=== PATIENT | female | born 1945 | race Caucasian/White ===

== ENCOUNTER 2016-11-18 16:29 | Inpatient (IN) | payer OTHER, MEDICARE ==
[2016-11-18] VITALS (8 sets, daily range): BP systolic 107–148; BP diastolic 53–76
[~2016-11-18] VITALS: Ht 162.6 cm; Wt 54.4 kg
[2016-11-18] MEDS ORDERED: PIPERACILLIN /TAZOBACTAM 3.375 G in IV D5W 50 ML IV ONE (17:00)
[2016-11-18] MEDS ORDERED: IV NS 0.9% 1,000 ML BAG IV ONE ×3 (17:00→19:30)
--- NOTE | 2016-11-18 17:00 | NUR ---
AC 12 TV 500 FIO2 40 % PEEP 5 MECH VENT
--- NOTE | 2016-11-18 17:00 | NUR ---
sent by private ems from [facility] for abnormal CXR and wbc count of 12.1. Placed on monitor. VSS. Awaiting md order. 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
--- NOTE | 2016-11-18 17:07 | NUR ---
PT PLACED ON [facility] VENT VIA TRACH SIZE 8 PORTEX CUFFED. VENT SETTINGS BELLOW PER RT TRANSPORTER: AC 12 VT 500 FIO2 40% PEEP +5 BREATH SOUNDS RHONCHI BILATERAL. CIARAN @ BEDSIDE. Addendum: 11/18/16 at 1713 by LOLY STEWART RT Amended: Links added.
[2016-11-18] MEDS ORDERED: MEMA5TAB GT (17:17)
[2016-11-18] MEDS ORDERED: METO25TA6 GT (17:17)
[2016-11-18] MEDS ORDERED: HYDR-3326 GT (17:17)
[2016-11-18] MEDS ORDERED: LEVA1.25 IH ×2 (17:17)
[2016-11-18] MEDS ORDERED: INSU100I19 SQ (17:17)
[2016-11-18] MEDS ORDERED: ASCO500S2 GT (17:17)
[2016-11-18] MEDS ORDERED: ATOR40TA GT (17:17)
[2016-11-18] MEDS ORDERED: MAGN400T26 GT (17:17)
[2016-11-18] MEDS ORDERED: BLOO-668 IN (17:17)
[2016-11-18] MEDS ORDERED: CLON0.1T GT (17:17)
[2016-11-18] MEDS ORDERED: AMIN30LI4 GT (17:17)
[2016-11-18] MEDS ORDERED: NUT.237L30 GT (17:17)
[2016-11-18] MEDS ORDERED: MULT-659 GT (17:17)
[2016-11-18] MEDS ORDERED: FERR300L GT (17:17)
[2016-11-18] MEDS ORDERED: SUCR1ORA GT (17:17)
[2016-11-18] MEDS ORDERED: IPRA0.2S9 IH ×2 (17:17)
[2016-11-18] MEDS ORDERED: DOCU50LI GT (17:17)
[2016-11-18] MEDS ORDERED: LOSA100T15 GT (17:17)
[2016-11-18] MEDS ORDERED: POLY15DR57 EACHEYE (17:17)
[2016-11-18] MEDS ORDERED: HYDR-4077 GT (17:17)
[2016-11-18] MEDS ORDERED: FAMO20TA8 GT (17:17)
[2016-11-18] MEDS ORDERED: ACET650S26 GT ×2 (17:17)
[2016-11-18] MEDS ORDERED: INSU100V3 SQ (17:17)
[2016-11-18] MEDS ORDERED: ZINC220C8 GT (17:17)
[2016-11-18 17:19] LABS: BASOPHILS # (AUTO) 0.1 /CMM (0.0-0.2); BASOPHILS % (AUTO) 0.9 % (0.0-2.0); EOSINOPHILS # (AUTO) 0.8 /CMM (0.0-0.7); EOSINOPHILS % (AUTO) 7.4 % (0.0-6.0); HEMATOCRIT 30 % (33-45); LYMPHOCYTES # (AUTO) 1.2 /CMM (0.8-4.8); LYMPHOCYTES % (AUTO) 11.7 % (20.0-44.0); MEAN CORPUSCULAR HEMOGLOBIN 30 PG (26.0-33.0); MEAN CORPUSCULAR HGB CONC 33 g/dl (31.0-36.0); MEAN CORPUSCULAR VOLUME 89 fL (82-100); MONOCYTES # (AUTO) 0.6 /CMM (0.1-1.30); MONOCYTES % (AUTO) 6.1 % (2.0-12.0); NEUTROPHILS # (AUTO) 7.7 /CMM (1.8-8.9); NEUTROPHILS % (AUTO) 73.9 % (43.0-81.0); PLATELET COUNT (AUTO) 308 /CMM (150-450); RED BLOOD CELL COUNT(AUTO) 3.37 MIL/uL (4.0-5.2); WHITE BLOOD COUNT (AUTO) 10.4 K/uL (4.3-11.0)
[2016-11-18] MEDS ORDERED: BISA10SU8 RC (17:19)
[2016-11-18] MEDS ORDERED: NA P133E RC (17:19)
[2016-11-18] MEDS ORDERED: MAGN400O6 GT (17:19)
[2016-11-18 17:28] LABS: CALCIUM, SERUM 9.1 mg/dL (8.5-10.1); CREATININE 0.6 mg/dL (0.6-1.3); POTASSIUM 3.5 mmol/L (3.5-5.1)
[2016-11-18] MEDS ORDERED: VANCOMYCIN 1 GM in IV D5W 250 ML IV ONE ×2 (17:30→19:30)
[2016-11-18 17:33] LABS: INR 1.09 (0.87-1.13); PROTHROMBIN TIME 11.4 SECS (9.5-12.7)
[2016-11-18 17:34] LABS: ALBUMIN 2.3 g/dL (3.4-5.0); BILIRUBIN,DIRECT 0.1 mg/dL (0.0-0.2); BILIRUBIN,TOTAL 0.4 mg/dL (0.2-1.0); TOTAL PROTEIN, SERUM 6.8 g/dL (6.4-8.2)
[2016-11-18] MEDS ORDERED: IV SET PRIMARY PUMP SET 1 EA INFUS.SET MC ONE ×2 (17:40→21:57)
[2016-11-18] MEDS ORDERED: PIPERACILLIN /TAZOBACTAM 3.375 G VIAL IV ONE (17:40)
[2016-11-18] MEDS ORDERED: IV NS 0.9% 2,000 ML ONE (17:40)
[2016-11-18] MEDS ORDERED: IV SET PRIMARY 1 EA INFUS.SET MC ONE (17:40)
[2016-11-18] MEDS ORDERED: IV NS 0.9% 1,000 ML ONE (17:41)
--- NOTE | 2016-11-18 18:09 | NUR ---
CALLED NURSING SUP. FOR ICU BED
--- NOTE | 2016-11-18 18:47 | NUR ---
WAITING FOR RT, RT IS BUSY. ER WILL CALL WHEN READY.
--- NOTE | 2016-11-18 19:10 | NUR ---
PT TAKEN TO ULTRASOUND VIA LYNN CONLEY AND RN
[2016-11-18] MEDS ORDERED: ONDANSETRON HCL/PF 4 MG/2 ML VIAL IVP PRN ×2 (19:30)
[2016-11-18] MEDS ORDERED: Z GUARD REMEDY 2 OZ OINT TP PRN (19:30)
[2016-11-18] MEDS ORDERED: ACETAMINOPHEN 650 MG/SUPP.RECT RC PRN (19:30)
[2016-11-18] MEDS ORDERED: NOREPINEPHRINE 8 MG in IV D5W 500 ML IV PRN (19:30)
[2016-11-18] MEDS ORDERED: ZOLPIDEM TARTRATE 5 MG TABLET PO PRN (19:30)
[2016-11-18] MEDS ORDERED: MAGNESIUM HYDROXIDE 30 ML UDC PO PRN (19:30)
[2016-11-18] MEDS ORDERED: ACETAMINOPHEN 325 MG TABLET PO PRN (19:30)
[2016-11-18] MEDS ORDERED: HYDROCODONE/APAP 5/325MG 1 EACH TABLET PO PRN (19:30)
[2016-11-18] MEDS ORDERED: MAG HYDROX/AL HYDROX/SIMETH 30 ML UDC PO PRN (19:30)
--- NOTE | 2016-11-18 19:30 | NUR ---
PT RETURNED FROM CT.
--- NOTE | 2016-11-18 19:45 | NUR ---
URINE SAMPLE COLLECTED SENT TO LAB
--- NOTE | 2016-11-18 20:04 | NUR ---
REPORT GIVEN BY RN TOMASA TO ICVU ZOE DANIELLE
--- NOTE | 2016-11-18 20:10 | NUR ---
DR RAMIRES AT BEDSIDE . CHEST TUBE INSERTION.
--- NOTE | 2016-11-18 20:10 | NUR ---
GAVE REPORT TO ICU DR ARTHUR ADMITTING.
--- NOTE | 2016-11-18 20:11 | NUR ---
GAVE REPORT TO GABI FOR HECTOR
[2016-11-18 20:16] LABS: APPEARANCE,URINE Clear (CLEAR); BILIRUBIN,URINE Negative (NEGATIVE); BLOOD, URINE Negative Ery/uL (NEGATIVE); COLOR,URINE Yellow (YELLOW); KETONES,URINE Negative (NEGATIVE); LEUKOCYTE ESTERASE ,URINE Small (NEGATIVE); NITRITE, URINE Negative (NEGATIVE); PH,URINE 5.5 (5.0-8.0); PROTEIN,URINE 30 mg/dl (NEGATIVE); UGLUCOSE Negative (NEGATIVE); UROBILINOGEN,URINE 0.2 EU/dL (0.2)
--- NOTE | 2016-11-18 20:20 | NUR ---
DR. RAMIRES CHEST TUBE WAS NOT PLACED.
[2016-11-18 20:27] LABS: CREATINE KINASE MB 3.7 ng/mL (0-3.6)
[2016-11-18] MEDS ORDERED: MAGNESIUM HYDROXIDE 30 ML UDC GT PRN (20:30)
[2016-11-18] MEDS ORDERED: BISACODYL SUPP (10 MG) 10 MG/SUPP.RECT SUPP.RECT RC PRN (20:30)
[2016-11-18] MEDS ORDERED: IPRATROPIUM NEB FS 0.5 MG/2.5 ML AMPUL.NEB NEB PRN (20:30)
[2016-11-18] MEDS ORDERED: NA PHOS,M-B/NA PHOS,DI-BA 1 EA ENEMA RC PRN (20:30)
[2016-11-18 20:35] LABS: ADD URINE CULTURE YES; BACTERIA,URINE Moderate /HPF (None Seen); RBC,URINE 0-2 /HPF (0-2); SQUAMOUS EPITHELIAL CELL,UR Moderate /HPF (None Seen)
--- NOTE | 2016-11-18 20:42 | NUR ---
[facility] PAGED, DEMOGRAPHER
[2016-11-18 21:03] LABS: ABG BASE EXCESS -3.8 mmol/L; ABG OXYGEN SATURATION 93.8 % (92.0-98.5); ABG PCO2 31.2 mmHg (35.0-45.0); ABG PH 7.423 (7.350-7.450); ABG PO2 80.8 mmHg (75.0-100.0); ABG TOTAL HEMOGLOBIN 9.5 G/dL (12.0-16.0); AaDO2 168.5 mmHg; COHb 0.1 % (0.5-1.5); MetHb 0.6 % (0.0-1.5); O2Hb 93.1 % (94.0-97.0); PEEP,BG 5 cm H2O; VT, ABG 500 mL
[2016-11-18] MEDS ORDERED: FEE PK DOSING 1 MIN EA MC ONE (21:22)
--- NOTE | 2016-11-18 21:28 | NUR ---
PT TRASNFERED PER ACLS PROTOCOL.
[2016-11-18] MEDS ORDERED: POLYVINYL ALCOHOL 15 ML BOTTLE EACHEYE PRN (21:30)
[2016-11-18] MEDS ORDERED: ALBUTEROL FS 2.5 MG/3 ML VIAL.NEB NEB PRN (21:30)
[2016-11-18] MEDS ORDERED: ACETAMINOPHEN 650 MG/20.3 ML UDC GT PRN (22:00)
[2016-11-18] MEDS: ATORVASTATIN 40 MG TABLET GT SCH (22:01)
[2016-11-18] MEDS: methylPREDNISolone SOD SUCC 125 MG/2ML VIAL IV SCH (22:02)
[2016-11-18] MEDS: SUCRALFATE 1 G/10 ML UDC GT SCH (22:02)
[2016-11-18] MEDS: IV NS 0.9% 1,000 ML IV PRN (22:03)
[2016-11-18] MEDS ORDERED: SECONDARY IV SET 1 EA INFUS.SET MC ONE (23:05)
--- NOTE | 2016-11-18 23:06 | NUR ---
LICENSED OCCUPATIONAL THERAPY ASSISTANT. ADMISSION. RECEIVED THE PT FROM ER VIA RNEY. TRACH TO VENT CONNECTED, PORTEX #8, AC 12,TV 500,FIO2 40%,PEEP 5. SAT 98%. SINGING WAITER OR WAITRESS SHOWING NSR. IV RT HAND IVF NS 100ML/H. GT INTACT. RT SIDE WEAKNESS. GT INTACT. BALAJI LOWER EXTREMITY CONTRACTED. LT HAND SOFT WRIST RESTRAINT. PT PULLING GT . HOB ELEVATED. FC INSERTED. WITH OUT DIFFICULT LADONNA AREA EXCORIATION. PICTURE TAKEN. AFEBRILE. WILL CONTINUE TO MONITOR VITALS.
[2016-11-18] MEDS: INSULIN DETEMIR 100 UNIT/ML CARTRIDGE SQ SCH (23:20)
[2016-11-18] MEDS: PIPERACILLIN /TAZOBACTAM 3.375 G in IV D5W 50 ML IV SCH (23:22)
[2016-11-19] VITALS (27 sets, daily range): BP systolic 103–151; BP diastolic 51–84
[2016-11-19] MEDS ORDERED: BLOOD SUGAR DIAGNOSTIC 1 EACH STRIP IN SCH
[2016-11-19] MEDS ORDERED: GLYTROL 1,000 ML BAG ONE (00:10)
[2016-11-19] MEDS: ALBUTEROL FS 2.5 MG/3 ML VIAL.NEB NEB SCH ×4 (01:50→19:54)
[2016-11-19] MEDS: IPRATROPIUM NEB FS 0.5 MG/2.5 ML AMPUL.NEB IH SCH ×4 (01:50→19:54)
[2016-11-19] MEDS: BLOOD SUGAR DIAGNOSTIC 1 EACH STRIP IN SCH ×4 (02:09→17:40)
[2016-11-19] MEDS: GLYTROL 1,000 ML BAG GT SCH (02:11)
--- NOTE | 2016-11-19 04:31 | NUR ---
STEAM SHOVEL OPERATING ENGINEER. AM CARE. ORAL CARE, BED BATH GIVEN. LINEN CHANGED, REMAINING SAME VENT SETTING TOLERATED WELL.SAT 98%. NO ACUTE DISTRESS NOTED. EMT DISPATCHER SHOWING NSR. IV RT HAND IVF NS 100 ML/H. GT FEEDING [id number] WELL. FC PATENT. URINE DRAINING HOB ELEVATED . TURN AND REPOSITION Q2H. WILL CONTINUE TO MONITOR VITALS.
[2016-11-19] MEDS ORDERED: IV SET PRIMARY PUMP SET 1 EA INFUS.SET MC ONE (04:38)
[2016-11-19] MEDS: VANCOMYCIN 0.75 GM in IV D5W 250 ML IV SCH ×2 (04:43→16:58)
[2016-11-19] MEDS: SUCRALFATE 1 G/10 ML UDC GT SCH ×3 (04:43→21:04)
[2016-11-19 05:00] LABS: BASOPHILS % (AUTO) 0.1 % (0.0-2.0); EOSINOPHILS % (AUTO) 0.1 % (0.0-6.0); HEMATOCRIT 30 % (33-45); HEMOGLOBIN 9.9 g/dL (11.5-14.8); LYMPHOCYTES # (AUTO) 0.3 /CMM (0.8-4.8); LYMPHOCYTES % (AUTO) 3.9 % (20.0-44.0); MEAN CORPUSCULAR HEMOGLOBIN 30 PG (26.0-33.0); MEAN CORPUSCULAR HGB CONC 33 g/dl (31.0-36.0); MEAN CORPUSCULAR VOLUME 89 fL (82-100); MONOCYTES % (AUTO) 0.7 % (2.0-12.0); NEUTROPHILS # (AUTO) 6.7 /CMM (1.8-8.9); NEUTROPHILS % (AUTO) 95.2 % (43.0-81.0); PLATELET COUNT (AUTO) 306 /CMM (150-450); RDW COEFFICIENT OF VARIATION 14.7 (11.5-15.0); RED BLOOD CELL COUNT(AUTO) 3.34 MIL/uL (4.0-5.2); WHITE BLOOD COUNT (AUTO) 7.1 K/uL (4.3-11.0)
[2016-11-19 05:23] LABS: ALBUMIN 2.1 g/dL (3.4-5.0); BILIRUBIN,TOTAL 0.5 mg/dL (0.2-1.0); CALCIUM, SERUM 8.7 mg/dL (8.5-10.1); CREATININE 0.4 mg/dL (0.6-1.3); MAGNESIUM 1.9 mg/dL (1.8-2.4); PHOSPHORUS 3.6 mg/dL (2.5-4.9); POTASSIUM 3.8 mmol/L (3.5-5.1); TOTAL PROTEIN, SERUM 6.5 g/dL (6.4-8.2)
[2016-11-19] MEDS: PIPERACILLIN /TAZOBACTAM 3.375 G in IV D5W 50 ML IV SCH ×3 (05:25→17:48)
[2016-11-19] MEDS: INSULIN REGULAR, HUMAN 100 UNIT/ML 3 ML VIAL SQ PRN ×3 (05:25→17:47)
[2016-11-19 05:53] LABS: INR 1.05 (0.87-1.13); PROTHROMBIN TIME 11.3 SECS (9.5-12.7)
[2016-11-19] MEDS ORDERED: PANTOPRAZOLE 40 MG TABLET.DR PO SCH (07:30)
--- NOTE | 2016-11-19 08:00 | NUR ---
EMPLOYMENT COACH Patient on mech vent to trach on FiO2 of 40%. no distress, sat 95%. Vitals signs stable, no drips. Diminished lung sounds, minimal secretions on suction. G-tube feeding continued with no residuals, increased to 40ml/hr, goal rate of 55ml/hr. Contracted lower extremities, left arm on restraints for safety (per client care coordinator RN attempts to pull out trach tube and Peg tube).
[2016-11-19] MEDS: MAGNESIUM OXIDE 400 MG TABLET GT SCH ×2 (09:22→16:57)
[2016-11-19] MEDS: PANTOPRAZOLE 40 MG VIAL IV SCH (09:22)
[2016-11-19] MEDS: MEMANTINE HCL 5 MG TABLET GT SCH (09:22)
[2016-11-19] MEDS: ASPIRIN 81 MG TAB.CHEW PO SCH (09:22)
[2016-11-19] MEDS: DOCUSATE SODIUM LIQ 100 MG/10 ML UDC GT SCH (09:22)
[2016-11-19] MEDS: methylPREDNISolone SOD SUCC 125 MG/2ML VIAL IV SCH ×3 (09:23→16:56)
[2016-11-19] MEDS: ZINC SULFATE 220 MG CAPSULE GT SCH (09:23)
[2016-11-19] MEDS: MULTIVIT, IRON, MIN NO. 8, FA 1 TAB TABLET GT SCH (09:23)
[2016-11-19] MEDS: FERROUS SULFATE UDC 300 MG/5 ML UDC GT SCH ×3 (09:23→16:56)
[2016-11-19] MEDS: PROSOURCE / PROSTAT (PYXIS) 30 ML UDC GT SCH (09:23)
[2016-11-19] MEDS: ASCORBIC ACID SYRUP 500 MG/5 ML UDC GT SCH (09:23)
[2016-11-19] MEDS: IV NS 0.9% 1,000 ML IV PRN (11:12)
[2016-11-19] MEDS: ACETYLCYSTEINE 10% SOLN 400 MG/4 ML VIAL NEB SCH (14:14)
[2016-11-19] MEDS: LACTOBACILLUS RHAMNOSUS GG 1 EACH CAP.SPRINK GT SCH (16:56)
--- NOTE | 2016-11-19 17:30 | NUR ---
FINANCIAL SYSTEMS MANAGER Transferred to [place], vital signs stable. continued current medical management. Endorse to [place] ENRIQUEZ
--- NOTE | 2016-11-19 17:30 | NUR ---
RN NOTES RECEIVED PT FROM ICU, PT TRANSPORTED VIA BED ACCOMPANIED BY RN AND RT. PT TRACHED, ON MECH VENT SETTINGS PRESCRIBED, NO ACUTE DISTRESS NOTED, TELEBOX ATTACHED, NOTED NSR HR 86. VS CHECKED AND RECORDED. KEPT COMFORTABLE. FC PATENT DRAINING YELLOW COLOR URINE, ISOLATION PRECAUTION OBSERVED. ONGOING IVF NS @100ML/HR INFUSING ON BERNARD MIDLINE. SAFETY MAINTAINED, CALL LIGHT WITHIN REACH, WILL CONT TO MONITOR
[2016-11-19] MEDS: ATORVASTATIN 40 MG TABLET GT SCH (21:04)
[2016-11-19] MEDS: INSULIN DETEMIR 100 UNIT/ML CARTRIDGE SQ SCH (21:10)
--- NOTE | 2016-11-19 21:24 | NUR ---
[place] RN NOTES RECEIVED PT AWAKE NONVERBAL ON SKATE MAKER WITH NS 93 HR ,ON VENT AC 12 TV 500PEEP +5FI02 40% , NO RESPIRATORY DISTRESS NOTED OR FACIAL GRIMACING NOTED AT THIS TIME ,CLEAN AND DRY ,WELL REPOSITIONED.
--- NOTE | 2016-11-19 22:00 | NUR ---
[place] RN NOTES ID AT BEDSIDE
[2016-11-20] VITALS: BP 130/68
[2016-11-20] MEDS: PIPERACILLIN /TAZOBACTAM 3.375 G in IV D5W 50 ML IV SCH ×5 (00:27→23:06)
[2016-11-20] MEDS: IV NS 0.9% 1,000 ML IV PRN ×2 (00:28→12:35)
[2016-11-20] MEDS: BLOOD SUGAR DIAGNOSTIC 1 EACH STRIP IN SCH ×5 (00:32→23:06)
[2016-11-20] MEDS: INSULIN REGULAR, HUMAN 100 UNIT/ML 3 ML VIAL SQ PRN ×5 (00:35→23:07)
[2016-11-20] MEDS: IPRATROPIUM NEB FS 0.5 MG/2.5 ML AMPUL.NEB IH SCH ×4 (02:03→20:30)
[2016-11-20] MEDS: ALBUTEROL FS 2.5 MG/3 ML VIAL.NEB NEB SCH ×4 (02:03→20:30)
[2016-11-20] MEDS: GLYTROL 1,000 ML BAG GT SCH ×2 (02:42→18:38)
[2016-11-20 04:00] VITALS: BP 143/61
[2016-11-20] MEDS: VANCOMYCIN 0.75 GM in IV D5W 250 ML IV SCH (05:19)
[2016-11-20] MEDS: SUCRALFATE 1 G/10 ML UDC GT SCH ×3 (05:19→21:56)
[2016-11-20] MEDS ORDERED: SECONDARY IV SET 1 EA INFUS.SET MC ONE (05:19)
[2016-11-20] MEDS ORDERED: IV SET PRIMARY PUMP SET 1 EA INFUS.SET MC ONE (06:43)
[2016-11-20 06:53] LABS: BASOPHILS % (AUTO) 0.2 % (0.0-2.0); HEMATOCRIT 26 % (33-45); HEMOGLOBIN 8.5 g/dL (11.5-14.8); LYMPHOCYTES # (AUTO) 0.6 /CMM (0.8-4.8); LYMPHOCYTES % (AUTO) 10.9 % (20.0-44.0); MEAN CORPUSCULAR HEMOGLOBIN 30 PG (26.0-33.0); MEAN CORPUSCULAR HGB CONC 33 g/dl (31.0-36.0); MEAN CORPUSCULAR VOLUME 89 fL (82-100); MONOCYTES # (AUTO) 0.3 /CMM (0.1-1.30); MONOCYTES % (AUTO) 5.2 % (2.0-12.0); NEUTROPHILS # (AUTO) 4.9 /CMM (1.8-8.9); NEUTROPHILS % (AUTO) 83.7 % (43.0-81.0); PLATELET COUNT (AUTO) 342 /CMM (150-450); RDW COEFFICIENT OF VARIATION 14.9 (11.5-15.0); RED BLOOD CELL COUNT(AUTO) 2.86 MIL/uL (4.0-5.2); WHITE BLOOD COUNT (AUTO) 5.9 K/uL (4.3-11.0)
--- NOTE | 2016-11-20 07:00 | NUR ---
[place] INITIAL NOTE RECEIVED PT OBTUNDED. ON MECHANICAL VENT, SETTINGS ORDERED, RESPIRATIONS EVEN AND UNLABORED, NO SOB OR DISTRESS PRESENT,SATURATING AT 97%. TELE MONITOR REVEALS SINUS RHYTHM, HR= 60. DOTY CATHETER DRAINING TO GRAVITY CLEAR, YELLOW URINE. G-TUBE PRESENT AND RUNNING GLYTROL @ 55 MLS/HR. THREE IVS PRESENT: 1) BERNARD MIDLINE RUNNING NS @ 100 MLS/HR, 2) RAC 22G HL AND 3) LFA 20G HL. SAFETY MEASURES TAKEN: BED LOCKED AND IN LOW POSITION, SIDE RAILS UP X2 AND BED ALARM ON, WILL CONTINUE TO MONITOR.
[2016-11-20] MEDS: ACETYLCYSTEINE 10% SOLN 400 MG/4 ML VIAL NEB SCH ×2 (07:12→17:32)
[2016-11-20 07:27] LABS: CALCIUM, SERUM 8.6 mg/dL (8.5-10.1); CREATININE 0.5 mg/dL (0.6-1.3); MAGNESIUM 1.8 mg/dL (1.8-2.4); PHOSPHORUS 2.5 mg/dL (2.5-4.9); POTASSIUM 3.5 mmol/L (3.5-5.1)
--- NOTE | 2016-11-20 07:37 | NUR ---
[place] RN CLOSING NOTES NO SIGNIFICANT CHANGES OVERNIGHT. NO RESPIRATORY DISTRESS NOTED. TOLERATED VENT SETTINGS. NO N/V. AFEBRILE. TOLERATED GTF. KEPT CLEAN AND DRY. TURNED AND REPOSITIONED Q2 AND PRN. ISOLATION PRECAUTIONS OBSERVED. F/C PATENT AND INTACT, DRAINING BY GRAVITY. SR ON TELE MONITOR. ALL NEEDS ANTICIPATED AND MET. ALL DUE MEDS GIVEN. HOB KEPT ELEVATED. SIDE RAILS UP AND LOCKED. BED KEPT AT LOWEST POSITION. CONTINUITY OF CARE ENDORSED TO AM NURSE.
[2016-11-20 08:00] VITALS: BP 133/77
[2016-11-20] MEDS: DOCUSATE SODIUM LIQ 100 MG/10 ML UDC GT SCH (08:23)
[2016-11-20] MEDS: FERROUS SULFATE UDC 300 MG/5 ML UDC GT SCH ×3 (08:23→16:22)
[2016-11-20] MEDS: ASCORBIC ACID SYRUP 500 MG/5 ML UDC GT SCH (08:23)
[2016-11-20] MEDS: PROSOURCE / PROSTAT (PYXIS) 30 ML UDC GT SCH (08:24)
[2016-11-20] MEDS: MAGNESIUM OXIDE 400 MG TABLET GT SCH ×2 (08:24→16:22)
[2016-11-20] MEDS: PANTOPRAZOLE 40 MG VIAL IV SCH (08:24)
[2016-11-20] MEDS: ZINC SULFATE 220 MG CAPSULE GT SCH (08:24)
[2016-11-20] MEDS: LACTOBACILLUS RHAMNOSUS GG 1 EACH CAP.SPRINK GT SCH ×2 (08:24→16:22)
[2016-11-20] MEDS: MEMANTINE HCL 5 MG TABLET GT SCH (08:24)
[2016-11-20] MEDS: MULTIVIT, IRON, MIN NO. 8, FA 1 TAB TABLET GT SCH (08:24)
[2016-11-20] MEDS: methylPREDNISolone SOD SUCC 125 MG/2ML VIAL IV SCH ×3 (08:25→20:59)
[2016-11-20] MEDS: ASPIRIN 81 MG TAB.CHEW PO SCH (08:25)
[2016-11-20 12:00] VITALS: BP 137/84
[2016-11-20 16:00] VITALS: BP 132/80
[2016-11-20] MEDS ORDERED: methylPREDNISolone SOD SUCC 125 MG/2ML VIAL IV SCH (17:00)
[2016-11-20] MEDS: VANCOMYCIN 1 GM in IV D5W 250 ML IV SCH (18:39)
--- NOTE | 2016-11-20 19:30 | NUR ---
NIKHIL ENRIQUEZ INITIAL NOTE PT RECEIVED RESTING IN BED. OBTUNDED. ON [facility] VENT WITH SETTINGS WELL TOLERATED. NIKHIL SINUS RHYTHM/ SINUS MARLA. IV SITES INTACT, PATENT AND FLUSHING WELL. DOTY CATHETER IN PLACE AND DRAINING BY GRAVIY Addendum: 11/20/16 at 2025 by SUNIL WILKES RN GTUBE INTACT WITHOUT RESIDUAL AND FEEDING WELL TOLERATED. ISOLATION PRECAUTIONS OBSERVED. WILL CONTINUE TO MONITOR.
[2016-11-20 20:00] VITALS: BP 165/78
[2016-11-20] MEDS: ATORVASTATIN 40 MG TABLET GT SCH (21:56)
[2016-11-20] MEDS: INSULIN DETEMIR 100 UNIT/ML CARTRIDGE SQ SCH (23:06)
[2016-11-21] VITALS: BP 167/75
[2016-11-21] MEDS: MORPHINE SULFATE INJ 2 MG/ML DISP.SYRIN IV PRN (00:03)
[2016-11-21] MEDS: IPRATROPIUM NEB FS 0.5 MG/2.5 ML AMPUL.NEB IH SCH ×4 (02:10→20:10)
[2016-11-21] MEDS: ALBUTEROL FS 2.5 MG/3 ML VIAL.NEB NEB SCH ×4 (02:10→20:10)
[2016-11-21 04:00] VITALS: BP 157/69
[2016-11-21] MEDS: SUCRALFATE 1 G/10 ML UDC GT SCH ×3 (04:56→20:09)
[2016-11-21] MEDS: GLYTROL 1,000 ML BAG GT SCH (04:57)
[2016-11-21] MEDS: PIPERACILLIN /TAZOBACTAM 3.375 G in IV D5W 50 ML IV SCH ×4 (05:05→23:52)
[2016-11-21] MEDS: BLOOD SUGAR DIAGNOSTIC 1 EACH STRIP IN SCH ×4 (05:12→23:52)
[2016-11-21] MEDS: INSULIN REGULAR, HUMAN 100 UNIT/ML 3 ML VIAL SQ PRN ×4 (05:15→23:53)
[2016-11-21] MEDS: VANCOMYCIN 1 GM in IV D5W 250 ML IV SCH (06:12)
[2016-11-21 06:36] LABS: BASOPHILS % (AUTO) 0.1 % (0.0-2.0); HEMATOCRIT 28 % (33-45); HEMOGLOBIN 9.4 g/dL (11.5-14.8); LYMPHOCYTES # (AUTO) 0.7 /CMM (0.8-4.8); LYMPHOCYTES % (AUTO) 13.2 % (20.0-44.0); MEAN CORPUSCULAR HEMOGLOBIN 30 PG (26.0-33.0); MEAN CORPUSCULAR HGB CONC 33 g/dl (31.0-36.0); MEAN CORPUSCULAR VOLUME 89 fL (82-100); MONOCYTES # (AUTO) 0.2 /CMM (0.1-1.30); MONOCYTES % (AUTO) 3.6 % (2.0-12.0); NEUTROPHILS # (AUTO) 4.5 /CMM (1.8-8.9); NEUTROPHILS % (AUTO) 83.1 % (43.0-81.0); PLATELET COUNT (AUTO) 406 /CMM (150-450); RDW COEFFICIENT OF VARIATION 14.7 (11.5-15.0); RED BLOOD CELL COUNT(AUTO) 3.18 MIL/uL (4.0-5.2); WHITE BLOOD COUNT (AUTO) 5.4 K/uL (4.3-11.0)
[2016-11-21 07:16] LABS: CALCIUM, SERUM 8.7 mg/dL (8.5-10.1); POTASSIUM 3.5 mmol/L (3.5-5.1)
[2016-11-21 07:17] LABS: CREATININE 0.5 mg/dL (0.6-1.3)
[2016-11-21] MEDS: ACETYLCYSTEINE 10% SOLN 400 MG/4 ML VIAL NEB SCH ×2 (07:20→14:00)
--- NOTE | 2016-11-21 07:20 | NUR ---
RT PT RECEIVED TRACHED WITH A PORTEX 8 CUFFED ON THE VENT WITH NOTED SETTINGS. PT IS AWAKE BUT DOES NOT FOLLOW COMMANDS. VENT ALARMS ARE SET AND AUDIBLE WITH BVM BY BEDSIDE. CLUTCH SPECIALIST CUFF PRESSURE NOTED. VENT IS PLUGGED INTO RED OUTLET. SX MINIMAL THIN CLEAR SECRETIONS. NO RESPIRATORY DISTRESS NOTED AT THIS TIME, WILL CONTINUE TO MONITOR. Addendum: 11/21/16 at 1236 by INA DIAS RT Amended: Links added.
--- NOTE | 2016-11-21 07:30 | NUR ---
RN NOTES RECEIVED PATIENT ON [facility] VENT WITH BREATHING NORMAL, EVEN AND UNLABORED. NO SOB NOTED. NO ACUTE DISTRESS NOTED. VENT SETTING REVIEWED AND VERIFIED. TOLERATED WELL. AFEBRILE. TELE MONITOR REVEALS SR, HR=70. IV BERNARD MIDLINE IS PATENT AND INTACT. ON GT FEED GLYTROL @ 55CC/HR. TOLERATED WELL. NO RESIDUAL NOTED. ASPIRATION PRECAUTION TAKEN. HOB ELEVATED. KEPT CLEAN, DRY AND COMFORTABLE. F/C IS PATENT AND INTACT, DRAINING WITH GRAVITY. ALL NEEDS ATTENDED. SAFETY MEASURE OBSERVED. CALL LIGHT WITH IN REACH. WILL CONT TO MONITOR.
--- NOTE | 2016-11-21 07:33 | NUR ---
MANAGER UNION CLOSING NOTE PT REMAINED STABLE DURING SHIFT. ISOLATION PRECAUTIONS OBSERVED. VENT SETTINGS WELL TOLERATED. DOTY CATHETER INTACT AND PATENT. WILL ENDORSE TO NEXT SHIFT FOR HECTOR.
[2016-11-21 08:00] VITALS: BP 150/73
[2016-11-21] MEDS: ASPIRIN 81 MG TAB.CHEW PO SCH (09:02)
[2016-11-21] MEDS: PROSOURCE / PROSTAT (PYXIS) 30 ML UDC GT SCH (09:02)
[2016-11-21] MEDS: MULTIVIT, IRON, MIN NO. 8, FA 1 TAB TABLET GT SCH (09:02)
[2016-11-21] MEDS: LACTOBACILLUS RHAMNOSUS GG 1 EACH CAP.SPRINK GT SCH ×2 (09:02→17:26)
[2016-11-21] MEDS: methylPREDNISolone SOD SUCC 125 MG/2ML VIAL IV SCH (09:02)
[2016-11-21] MEDS: FERROUS SULFATE UDC 300 MG/5 ML UDC GT SCH ×3 (09:02→17:25)
[2016-11-21] MEDS: ASCORBIC ACID SYRUP 500 MG/5 ML UDC GT SCH (09:02)
[2016-11-21] MEDS: PANTOPRAZOLE 40 MG VIAL IV SCH (09:02)
[2016-11-21] MEDS: MEMANTINE HCL 5 MG TABLET GT SCH (09:02)
[2016-11-21] MEDS: ZINC SULFATE 220 MG CAPSULE GT SCH (09:02)
[2016-11-21] MEDS: MAGNESIUM OXIDE 400 MG TABLET GT SCH ×2 (09:03→17:26)
[2016-11-21] MEDS: DOCUSATE SODIUM LIQ 100 MG/10 ML UDC GT SCH (09:38)
[2016-11-21 12:00] VITALS: BP 152/80
--- NOTE | 2016-11-21 12:03 | NUR ---
WOUND CARE CONSULT: PT PRESENTS WITH MULTIPLE SCARS INCLUDING SACRAL AND BUTTOCKS AREAS. PT NOTED TO HAVE SUSPECTED DEEP TISSUE INJURIES WHICH ARE INTACT TO LEFT GREAT TOE AND LEFT HEEL, PRESENT ON ADMISSION WELL HEALING ABRASION TO LEFT INNER THIGH, ALSO PRESENT ON ADMISSION. PT HAS SEVERE CONTRACTURES TO LEGS, MAKING OFFLOADING DIFFICULT. PT ON FIRST STEP MATTRESS. ALL SKIN PROTECTION MEASURES IN PLACE. DISCUSSED WITH NURSING STAFF. IN AGREEMENT WITH PLAN OF CARE. Addendum: 11/21/16 at 1205 by SERVANDO DAVISON WNDNU Amended: Links added.
[2016-11-21 16:00] VITALS: BP 151/82
--- NOTE | 2016-11-21 19:20 | NUR ---
RN NOTES PATIENT ENDORSED TO NEXT SHIFT IN STABLE CONDITION FOR CONTINUITY OF CARE. NO SIGNIFICANT CHANGES NOTED. KEPT CLEAN, DRY AND COMFORTABLE. ALL NEEDS ATTENDED. SAFETY MEASURE OBSERVED. CALL LIGHT WITH IN REACH. WILL CONT TO MONITOR.
[2016-11-21 20:00] VITALS: BP 116/69
--- NOTE | 2016-11-21 20:00 | NUR ---
COTTON FACTOR - NOTES - RECEIVED PATIENT ON [facility] VENT WITH BREATHING NORMAL, EVEN AND UNLABORED. NO SOB NOTED. NO ACUTE DISTRESS NOTED. VENT SETTING REVIEWED AND VERIFIED. TOLERATED WELL. AFEBRILE. TELE MONITOR REVEALS SR, HR=80S. IV BERNARD MIDLINE IS PATENT AND INTACT. ON GT FEED GLYTROL @ 55 ML/HR. TOLERATED WELL. NO RESIDUAL NOTED. ASPIRATION PRECAUTION TAKEN. HOB ELEVATED. KEPT CLEAN, DRY AND COMFORTABLE. F/C IS PATENT AND INTACT, DRAINING WITH GRAVITY. ALL NEEDS ATTENDED. SAFETY MEASURE OBSERVED. CALL LIGHT WITH IN REACH. WILL CONT TO MONITOR.
[2016-11-21 20:10] LABS: SUBTYPE NOVEL H1N1 PCR Negative (Negative)
[2016-11-21] MEDS: ATORVASTATIN 40 MG TABLET GT SCH (21:24)
[2016-11-21] MEDS: INSULIN DETEMIR 100 UNIT/ML CARTRIDGE SQ SCH (21:25)
[2016-11-22] VITALS: BP 104/51
[2016-11-22] MEDS: HYDROCODONE/APAP 5/325MG 1 EACH TABLET GT PRN (00:33)
[2016-11-22] MEDS: ALBUTEROL FS 2.5 MG/3 ML VIAL.NEB NEB SCH ×4 (00:56→20:04)
[2016-11-22] MEDS: IPRATROPIUM NEB FS 0.5 MG/2.5 ML AMPUL.NEB IH SCH ×4 (00:56→20:04)
[2016-11-22 04:00] VITALS: BP 97/54
[2016-11-22] MEDS: SUCRALFATE 1 G/10 ML UDC GT SCH ×3 (04:37→21:05)
[2016-11-22] MEDS: BLOOD SUGAR DIAGNOSTIC 1 EACH STRIP IN SCH ×4 (05:28→23:17)
[2016-11-22] MEDS: PIPERACILLIN /TAZOBACTAM 3.375 G in IV D5W 50 ML IV SCH ×2 (05:28→11:25)
[2016-11-22] MEDS: DEXTROSE 50%-WATER 50 ML DISP.SYRIN IV PRN (05:29)
[2016-11-22 06:52] LABS: BASOPHILS % (AUTO) 0.2 % (0.0-2.0); EOSINOPHILS % (AUTO) 0.1 % (0.0-6.0); HEMATOCRIT 30 % (33-45); HEMOGLOBIN 10.3 g/dL (11.5-14.8); LYMPHOCYTES # (AUTO) 2.3 /CMM (0.8-4.8); LYMPHOCYTES % (AUTO) 15.6 % (20.0-44.0); MEAN CORPUSCULAR HEMOGLOBIN 30 PG (26.0-33.0); MEAN CORPUSCULAR HGB CONC 34 g/dl (31.0-36.0); MEAN CORPUSCULAR VOLUME 88 fL (82-100); MONOCYTES # (AUTO) 0.3 /CMM (0.1-1.30); MONOCYTES % (AUTO) 1.8 % (2.0-12.0); NEUTROPHILS # (AUTO) 12.3 /CMM (1.8-8.9); NEUTROPHILS % (AUTO) 82.3 % (43.0-81.0); PLATELET COUNT (AUTO) 504 /CMM (150-450); RDW COEFFICIENT OF VARIATION 14.3 (11.5-15.0); RED BLOOD CELL COUNT(AUTO) 3.45 MIL/uL (4.0-5.2); WHITE BLOOD COUNT (AUTO) 14.9 K/uL (4.3-11.0)
[2016-11-22] MEDS: ACETYLCYSTEINE 10% SOLN 400 MG/4 ML VIAL NEB SCH ×2 (07:10→14:34)
[2016-11-22 08:00] VITALS: BP 111/73
--- NOTE | 2016-11-22 08:00 | NUR ---
ADJUNCT PSYCHOLOGY INSTRUCTOR NOTE PATIENT IN BED , WIT TRACH TO VENT SETTING , WITH GTUBE FEEDING ORDERED , KEEP HOB ELEVATED AT ALL TIME, RT UPPER ARM MID LINE IN PLACE RT AC HL INTACT ON TELE MONITOR SR 63 ON [employer] FOR SKIN MANAGEMENT , BED IN LOWEST AND LOCKED POSITION , CALL LIGHT WITHIN REACH , WILL CONT TO MONITOR CLOSELY, WITH FOLET CATH TO GRAVITY WITH YELLOW COLOR URINE
[2016-11-22 08:56] LABS: CALCIUM, SERUM 8.9 mg/dL (8.5-10.1); CREATININE 0.5 mg/dL (0.6-1.3); POTASSIUM 3.3 mmol/L (3.5-5.1)
[2016-11-22] MEDS ORDERED: methylPREDNISolone SOD SUCC 125 MG/2ML VIAL IV SCH (09:00)
[2016-11-22] MEDS: DOCUSATE SODIUM LIQ 100 MG/10 ML UDC GT SCH (09:26)
[2016-11-22] MEDS: LACTOBACILLUS RHAMNOSUS GG 1 EACH CAP.SPRINK GT SCH ×2 (09:26→16:02)
[2016-11-22] MEDS: PANTOPRAZOLE 40 MG VIAL IV SCH (09:26)
[2016-11-22] MEDS: FERROUS SULFATE UDC 300 MG/5 ML UDC GT SCH ×3 (09:26→16:02)
[2016-11-22] MEDS: ZINC SULFATE 220 MG CAPSULE GT SCH (09:26)
[2016-11-22] MEDS: MULTIVIT, IRON, MIN NO. 8, FA 1 TAB TABLET GT SCH (09:26)
[2016-11-22] MEDS: PROSOURCE / PROSTAT (PYXIS) 30 ML UDC GT SCH (09:26)
[2016-11-22] MEDS: ASPIRIN 81 MG TAB.CHEW PO SCH (09:26)
[2016-11-22] MEDS: ASCORBIC ACID SYRUP 500 MG/5 ML UDC GT SCH (09:26)
[2016-11-22] MEDS: MEMANTINE HCL 5 MG TABLET GT SCH (09:27)
[2016-11-22] MEDS: MAGNESIUM OXIDE 400 MG TABLET GT SCH ×2 (09:27→16:01)
[2016-11-22] MEDS ORDERED: IV NS 0.9% 250 ML IV ONE (09:49)
[2016-11-22] MEDS ORDERED: POTASSIUM CHLORIDE 20 MEQ POWDER PACKET GT ONE (10:00)
--- NOTE | 2016-11-22 10:16 | NUR ---
NETWORK ENGINEERING ADVISOR NOTE PER DR ANDINO DOCTOR ON TO STOP ISOLATION PRECAUTION , ALS PER DR [facility] AWARE THAT K 3.3 WITH NEW ORDER CARRIED OUT
[2016-11-22 12:00] VITALS: BP 121/71
--- NOTE | 2016-11-22 14:08 | NUR ---
SIGNWRITER NOTE SPOKE WITH RAJNI RN ELECTRONIC PAGINATION SYSTEM OPERATOR NOTIFIED THAT NA 127 TODAY AND WBC 14.9 ON ZOSYN ALSO PER LAB REPORT ON VRE URINE , STATED THAT WILL SEE PATIENT SOON
[2016-11-22] MEDS: LINEZOLID 600 MG TABLET GT SCH ×2 (14:40→23:17)
[2016-11-22] MEDS: GLYTROL 1,000 ML BAG GT SCH (14:44)
[2016-11-22 16:00] VITALS: BP 104/72
--- NOTE | 2016-11-22 16:42 | NUR ---
CD MIXER NOTE PER HOSPITAL PROTOCOL PLACED ON VRE URINE ISOLATION
[2016-11-22] MEDS: INSULIN REGULAR, HUMAN 100 UNIT/ML 3 ML VIAL SQ PRN ×2 (17:23→23:19)
--- NOTE | 2016-11-22 19:30 | NUR ---
RN INITIAL NOTES RECEIVED PT AWAKE ON BED, A/O X1, ABLE TO MOUTH WORDS. ON VENT AC 12, TV 500, 40% FIO2, PEEP 5, PORTEX 8, SATURATING WELL, NO S/S OF RESP DISTRESS. CURRENTLY SR ON THE MONITOR. ON GTUBE FEEDING OF GLYTROL @ 55MLS/HR, NO RESIDUALS, TOLERATING WELL. DOTY CATH INTACT. RIGHT AC 20G IS OCCLUDED, WILL REMOVE. RIGHT UPPER ARM MIDLINE AND LEFT FOREARM 20G FLUSHED AND PATENT, NO S/S OF INFILTRATION/INFECTION, DRESSINGS CDI. BED LOW AND LOCKED, SIDERAILS UP, CALL LIGHT WITHIN REACH. WILL MONITOR
[2016-11-22 20:00] VITALS: BP 117/86
--- NOTE | 2016-11-22 20:37 | NUR ---
PT RECEIVED TRACHED PTX 8 ON VENT. PT IS AWAKE NO RESP DISTRESS. TOLERATING VENT SETTINGS. SX'D FOR MOD AMT OF WHITE SECRETIONS. VENT ALARMS SET AND AUDIBLE. AMBU BAG AT BEDSIDE. VENT PLUGGED INTO RED OUTLET. WILL CONTINUE TO MONITOR. Addendum: 11/22/16 at 2038 by BRONWYN GUY RT Amended: Links added.
[2016-11-22] MEDS: ATORVASTATIN 40 MG TABLET GT SCH (21:05)
[2016-11-22] MEDS: INSULIN DETEMIR 100 UNIT/ML CARTRIDGE SQ SCH (21:05)
[2016-11-23] VITALS: BP 113/60
[2016-11-23] MEDS: IPRATROPIUM NEB FS 0.5 MG/2.5 ML AMPUL.NEB IH SCH ×4 (01:24→19:48)
[2016-11-23] MEDS: ALBUTEROL FS 2.5 MG/3 ML VIAL.NEB NEB SCH ×4 (01:24→19:48)
[2016-11-23 04:00] VITALS: BP 106/65
[2016-11-23] MEDS: BLOOD SUGAR DIAGNOSTIC 1 EACH STRIP IN SCH ×3 (05:07→17:52)
[2016-11-23] MEDS: SUCRALFATE 1 G/10 ML UDC GT SCH ×3 (05:08→21:06)
--- NOTE | 2016-11-23 06:25 | NUR ---
RN CLOSING NOTES PT REMAINS STABLE OF THE MOMENT. ALL DUE MEDS GIVEN, AM CARE PROVIDED. WILL ENDORSE CONTINUITY OF CARE TO AM RN
[2016-11-23 06:56] LABS: BASOPHILS % (AUTO) 0.3 % (0.0-2.0); EOSINOPHILS # (AUTO) 0.1 /CMM (0.0-0.7); EOSINOPHILS % (AUTO) 0.6 % (0.0-6.0); HEMATOCRIT 33 % (33-45); HEMOGLOBIN 11.2 g/dL (11.5-14.8); LYMPHOCYTES # (AUTO) 2.6 /CMM (0.8-4.8); LYMPHOCYTES % (AUTO) 22.5 % (20.0-44.0); MEAN CORPUSCULAR HEMOGLOBIN 30 PG (26.0-33.0); MEAN CORPUSCULAR HGB CONC 34 g/dl (31.0-36.0); MEAN CORPUSCULAR VOLUME 89 fL (82-100); MONOCYTES # (AUTO) 0.4 /CMM (0.1-1.30); MONOCYTES % (AUTO) 3.2 % (2.0-12.0); NEUTROPHILS # (AUTO) 8.5 /CMM (1.8-8.9); NEUTROPHILS % (AUTO) 73.4 % (43.0-81.0); PLATELET COUNT (AUTO) 531 /CMM (150-450); RDW COEFFICIENT OF VARIATION 14.6 (11.5-15.0); RED BLOOD CELL COUNT(AUTO) 3.74 MIL/uL (4.0-5.2); WHITE BLOOD COUNT (AUTO) 11.6 K/uL (4.3-11.0)
--- NOTE | 2016-11-23 07:00 | NUR ---
RN NOTES RECEIVED PT ON BED, A/O X1, ABLE TO MOUTH WORDS. VENT DEPENDENT , TRACH CARE DONE, AC 12, TV 500, 40% FIO2, PEEP 5, PORTEX 8, NO S/S OF RESP DISTRESS. ON TELE SR , TOLERATING G TUBE FEEDING OF GLYTROL @ 55MLS/HR WELL, NO RESIDUALS NOTED, DOTY CATH DRAINING TO GRAVITY, RIGHT UPPER ARM MIDLINE AND LEFT FOREARM 20G FLUSHED AND PATENT, NO S/S OF INFILTRATION/INFECTION,BED LOCKED AND IN LOWEST POSITION , SR UP x3, , CALL LIGHT WITHIN EASY REACH. WILL MONITOR PT CLOSELY AND NOTIFY MD FOR ANY SIGNIFICANT CHANGES.
[2016-11-23] MEDS: ACETYLCYSTEINE 10% SOLN 400 MG/4 ML VIAL NEB SCH ×2 (07:07→15:14)
[2016-11-23 07:13] LABS: CALCIUM, SERUM 8.9 mg/dL (8.5-10.1); CREATININE 0.4 mg/dL (0.6-1.3); POTASSIUM 3.4 mmol/L (3.5-5.1)
[2016-11-23 08:00] VITALS: BP 161/84
[2016-11-23] MEDS ORDERED: POTASSIUM CHLORIDE 20 MEQ POWDER PACKET GT ONE (08:00)
[2016-11-23] MEDS: MEMANTINE HCL 5 MG TABLET GT SCH (08:25)
[2016-11-23] MEDS: FERROUS SULFATE UDC 300 MG/5 ML UDC GT SCH ×3 (08:25→17:50)
[2016-11-23] MEDS: MULTIVIT, IRON, MIN NO. 8, FA 1 TAB TABLET GT SCH (08:25)
[2016-11-23] MEDS: ZINC SULFATE 220 MG CAPSULE GT SCH (08:25)
[2016-11-23] MEDS: MAGNESIUM OXIDE 400 MG TABLET GT SCH ×2 (08:25→17:50)
[2016-11-23] MEDS: ASPIRIN 81 MG TAB.CHEW PO SCH (08:25)
[2016-11-23] MEDS: DOCUSATE SODIUM LIQ 100 MG/10 ML UDC GT SCH (08:25)
[2016-11-23] MEDS: LINEZOLID 600 MG TABLET GT SCH ×2 (08:25→21:06)
[2016-11-23] MEDS: ASCORBIC ACID SYRUP 500 MG/5 ML UDC GT SCH (08:25)
[2016-11-23] MEDS: PROSOURCE / PROSTAT (PYXIS) 30 ML UDC GT SCH (08:25)
[2016-11-23] MEDS: PANTOPRAZOLE 40 MG VIAL IV SCH (08:25)
[2016-11-23] MEDS: LACTOBACILLUS RHAMNOSUS GG 1 EACH CAP.SPRINK GT SCH ×2 (08:25→17:50)
[2016-11-23] MEDS ORDERED: predniSONE 20 MG TABLET PO SCH (09:00)
[2016-11-23 12:00] VITALS: BP_SYST 121; BP_SYST 125; BP_DIAS 72; BP_DIAS 73
--- NOTE | 2016-11-23 12:00 | NUR ---
RN NOTES PT STABLE , TRACH CARE DONE, TOLERATING TF WELL, CONTINUE TO MONITOR .
[2016-11-23] MEDS: INSULIN REGULAR, HUMAN 100 UNIT/ML 3 ML VIAL SQ PRN ×2 (12:07→17:52)
[2016-11-23] MEDS: GLYTROL 1,000 ML BAG GT SCH (13:57)
[2016-11-23] MEDS ORDERED: predniSONE 10 MG TABLET PO SCH (14:00)
[2016-11-23 16:00] VITALS: BP 119/62
--- NOTE | 2016-11-23 18:15 | NUR ---
RN NOTES PT AT REST , MEDICATED PER MD ORDER , R UPPER ARM MIDLINE AND L FOR ARM IV SITE CDI, TOLERATING TF WELL, NO RESIDUAL NOTED, NO SIGNIFICANT CHANGES NOTED ON THIS SHIFT
--- NOTE | 2016-11-23 19:30 | NUR ---
RADIOLOGIC TECHNOLOGY PROGRAM DIRECTOR INITIAL NOTE RECEIVED REPORT FROM JET ENRIQUEZ. PT IN BED, CHRONIC VENT TRACH TOLERATING CURRENT VENT SETTINGS. A/A/O X1, MOUTHS WORDS. LUNG SOUNDS RHONCHI. BOWEL SOUNDS PRESENT WITH GT INTACT. FEEDING RUNNING WITH 5CC RESIDUAL. IV PATENT AND INTACT. DOTY INTACT AND DRAINING. PULSES PRESENT. PT IS CONSTANTLY MOVING HER ARMS, TO WIPE MOUTH OR RAISE ARM. BED IN LOW LOCKED POSITION. CALL LIGHT WITHIN REACH. WILL CONTINUE TO MONITOR.
[2016-11-23 20:00] VITALS: BP 125/78
[2016-11-23] MEDS: ATORVASTATIN 40 MG TABLET GT SCH (21:06)
[2016-11-23] MEDS: INSULIN DETEMIR 100 UNIT/ML CARTRIDGE SQ SCH (21:08)
[2016-11-24] VITALS: BP 108/80
[2016-11-24] MEDS: BLOOD SUGAR DIAGNOSTIC 1 EACH STRIP IN SCH ×5 (00:58→23:14)
[2016-11-24] MEDS: INSULIN REGULAR, HUMAN 100 UNIT/ML 3 ML VIAL SQ PRN ×3 (01:01→18:03)
[2016-11-24] MEDS: IPRATROPIUM NEB FS 0.5 MG/2.5 ML AMPUL.NEB IH SCH ×4 (01:04→19:31)
[2016-11-24] MEDS: ALBUTEROL FS 2.5 MG/3 ML VIAL.NEB NEB SCH ×4 (01:04→19:31)
[2016-11-24 04:00] VITALS: BP 117/68
[2016-11-24] MEDS ORDERED: IV SET PRIMARY PUMP SET 1 EA INFUS.SET MC ONE (05:50)
[2016-11-24] MEDS: SUCRALFATE 1 G/10 ML UDC GT SCH ×3 (05:50→21:15)
[2016-11-24] MEDS: GLYTROL 1,000 ML BAG GT SCH ×2 (05:52→15:45)
[2016-11-24] MEDS: DEXTROSE 50%-WATER 50 ML DISP.SYRIN IV PRN (06:08)
--- NOTE | 2016-11-24 07:00 | NUR ---
RN INITIAL NOTE RECEIVED REPORT FORM MATTHEW LANCE NURSE. PT A/OX1 MOUTH WORDS. PORTEX 8 AC 12 TV 500 FI02 40% PEEP 5. TELE SR. F/C INTACT. GTF GLYTROL @55 ML/HR PLACEMENT CK NO RESIDUAL.. IV BERNARD MIDLINE #20G FLUSHED PATENT AND INTACT. WILL CONTINUE TO MONITOR CLOSELY ALL SAFETY MEASURES IN PLACE.
[2016-11-24 07:03] LABS: CALCIUM, SERUM 8.8 mg/dL (8.5-10.1); CREATININE 0.4 mg/dL (0.6-1.3); MAGNESIUM 1.9 mg/dL (1.8-2.4); PHOSPHORUS 2.4 mg/dL (2.5-4.9); POTASSIUM 3.5 mmol/L (3.5-5.1)
[2016-11-24] MEDS: ACETYLCYSTEINE 10% SOLN 400 MG/4 ML VIAL NEB SCH ×2 (07:15→14:01)
[2016-11-24 08:00] VITALS: BP 134/74
[2016-11-24] MEDS: ASPIRIN 81 MG TAB.CHEW PO SCH (08:12)
[2016-11-24] MEDS: PROSOURCE / PROSTAT (PYXIS) 30 ML UDC GT SCH (08:13)
[2016-11-24] MEDS: FERROUS SULFATE UDC 300 MG/5 ML UDC GT SCH ×3 (08:13→16:00)
[2016-11-24] MEDS: DOCUSATE SODIUM LIQ 100 MG/10 ML UDC GT SCH (08:13)
[2016-11-24] MEDS: ASCORBIC ACID SYRUP 500 MG/5 ML UDC GT SCH (08:13)
[2016-11-24] MEDS: MEMANTINE HCL 5 MG TABLET GT SCH (08:13)
[2016-11-24] MEDS: LINEZOLID 600 MG TABLET GT SCH ×2 (08:13→21:15)
[2016-11-24] MEDS: LACTOBACILLUS RHAMNOSUS GG 1 EACH CAP.SPRINK GT SCH ×2 (08:13→16:00)
[2016-11-24] MEDS: ZINC SULFATE 220 MG CAPSULE GT SCH (08:13)
[2016-11-24] MEDS: MAGNESIUM OXIDE 400 MG TABLET GT SCH ×2 (08:15→16:00)
[2016-11-24] MEDS: PANTOPRAZOLE 40 MG VIAL IV SCH (08:15)
[2016-11-24] MEDS: MULTIVIT, IRON, MIN NO. 8, FA 1 TAB TABLET GT SCH (08:15)
[2016-11-24 08:45] LABS: THYROID STIMULATING HORMONE 5.791 uIU/mL (0.358-3.74); URIC ACID 2.6 mg/dL (2.6-7.2)
[2016-11-24] MEDS ORDERED: predniSONE 10 MG TABLET PO SCH (09:00)
[2016-11-24] MEDS ORDERED: POTASSIUM CHLORIDE 20 MEQ POWDER PACKET GT ONE (11:30)
[2016-11-24 12:00] VITALS: BP 118/46
[2016-11-24 12:40] LABS: BASOPHILS % (AUTO) 0.2 % (0.0-2.0); EOSINOPHILS # (AUTO) 0.2 /CMM (0.0-0.7); EOSINOPHILS % (AUTO) 1.7 % (0.0-6.0); HEMATOCRIT 33 % (33-45); HEMOGLOBIN 10.6 g/dL (11.5-14.8); LYMPHOCYTES # (AUTO) 2.8 /CMM (0.8-4.8); LYMPHOCYTES % (AUTO) 24.7 % (20.0-44.0); MEAN CORPUSCULAR HEMOGLOBIN 29 PG (26.0-33.0); MEAN CORPUSCULAR HGB CONC 33 g/dl (31.0-36.0); MEAN CORPUSCULAR VOLUME 90 fL (82-100); MONOCYTES # (AUTO) 0.6 /CMM (0.1-1.30); MONOCYTES % (AUTO) 4.9 % (2.0-12.0); NEUTROPHILS # (AUTO) 7.8 /CMM (1.8-8.9); NEUTROPHILS % (AUTO) 68.5 % (43.0-81.0); PLATELET COUNT (AUTO) 569 /CMM (150-450); RDW COEFFICIENT OF VARIATION 14.9 (11.5-15.0); RED BLOOD CELL COUNT(AUTO) 3.63 MIL/uL (4.0-5.2); WHITE BLOOD COUNT (AUTO) 11.4 K/uL (4.3-11.0)
[2016-11-24] MEDS ORDERED: NEUTRA PHOS 1 POWD.PACKET NG ONE (15:00)
[2016-11-24 16:00] VITALS: BP 115/49
--- NOTE | 2016-11-24 19:10 | NUR ---
RN CLOSING NOTE PT A/OX1-2 MOUTH WORDS. PORTEX 8 AC 12 TV 500 FI02 40% PEEP 5. TELE SR. F/C INTACT. GTF GLYTROL @55 ML/HR TOLERATED FEEDING THROUGH OUT SHIFT. IV BERNARD MIDLINE #20G INTACT. REPORT GIVEN TO GEORGINA IVERSON PM SHIFT FOR HECTOR. ALL MEDICATIONS GIVEN ALL ORDERS CARRIED OUT.
[2016-11-24 20:00] VITALS: BP 114/65
[2016-11-24] MEDS: ATORVASTATIN 40 MG TABLET GT SCH (21:15)
[2016-11-24] MEDS: INSULIN DETEMIR 100 UNIT/ML CARTRIDGE SQ SCH (22:00)
[2016-11-25] VITALS: BP 125/70
[2016-11-25] MEDS: IPRATROPIUM NEB FS 0.5 MG/2.5 ML AMPUL.NEB IH SCH ×4 (01:47→19:41)
[2016-11-25] MEDS: ALBUTEROL FS 2.5 MG/3 ML VIAL.NEB NEB SCH ×4 (01:47→19:41)
[2016-11-25 04:00] VITALS: BP 121/60
[2016-11-25] MEDS: BLOOD SUGAR DIAGNOSTIC 1 EACH STRIP IN SCH ×4 (05:30→23:18)
[2016-11-25] MEDS: SUCRALFATE 1 G/10 ML UDC GT SCH ×3 (05:30→21:29)
[2016-11-25] MEDS: HYDROCODONE/APAP 5/325MG 1 EACH TABLET GT PRN (05:31)
[2016-11-25] MEDS: INSULIN REGULAR, HUMAN 100 UNIT/ML 3 ML VIAL SQ PRN ×3 (05:33→17:29)
[2016-11-25 06:34] LABS: BASOPHILS % (AUTO) 0.2 % (0.0-2.0); EOSINOPHILS # (AUTO) 0.3 /CMM (0.0-0.7); EOSINOPHILS % (AUTO) 2.8 % (0.0-6.0); HEMATOCRIT 29 % (33-45); HEMOGLOBIN 9.6 g/dL (11.5-14.8); LYMPHOCYTES # (AUTO) 3.3 /CMM (0.8-4.8); MEAN CORPUSCULAR HEMOGLOBIN 30 PG (26.0-33.0); MEAN CORPUSCULAR HGB CONC 33 g/dl (31.0-36.0); MEAN CORPUSCULAR VOLUME 90 fL (82-100); MONOCYTES # (AUTO) 0.6 /CMM (0.1-1.30); MONOCYTES % (AUTO) 5.1 % (2.0-12.0); NEUTROPHILS # (AUTO) 7.6 /CMM (1.8-8.9); NEUTROPHILS % (AUTO) 63.9 % (43.0-81.0); PLATELET COUNT (AUTO) 477 /CMM (150-450); RDW COEFFICIENT OF VARIATION 15.2 (11.5-15.0); RED BLOOD CELL COUNT(AUTO) 3.19 MIL/uL (4.0-5.2); WHITE BLOOD COUNT (AUTO) 11.9 K/uL (4.3-11.0)
--- NOTE | 2016-11-25 07:00 | NUR ---
RN INITIAL NOTE RECEIVED REPORT FROM GEORGINA OLVERA PM NURSE. PT A/OX1 MOUTH WORDS. PORTEX 8 AC 12 TV 500 FI02 40% PEEP 5. TELE SR. F/C INTACT. GTF GLYTROL @55 ML/HR PLACEMENT CK NO RESIDUAL.. IV BERNARD MIDLINE #20G FLUSHED PATENT AND INTACT. WILL CONTINUE TO MONITOR CLOSELY ALL SAFETY MEASURES IN PLACE
[2016-11-25 07:02] LABS: CALCIUM, SERUM 8.3 mg/dL (8.5-10.1); CREATININE 0.5 mg/dL (0.6-1.3); PHOSPHORUS 3.2 mg/dL (2.5-4.9); POTASSIUM 4.1 mmol/L (3.5-5.1)
[2016-11-25] MEDS: ACETYLCYSTEINE 10% SOLN 400 MG/4 ML VIAL NEB SCH ×2 (07:51→14:03)
[2016-11-25 08:00] VITALS: BP 98/55
[2016-11-25] MEDS: FERROUS SULFATE UDC 300 MG/5 ML UDC GT SCH ×3 (08:19→17:20)
[2016-11-25] MEDS: ASCORBIC ACID SYRUP 500 MG/5 ML UDC GT SCH (08:19)
[2016-11-25] MEDS: MAGNESIUM OXIDE 400 MG TABLET GT SCH ×2 (08:19→17:20)
[2016-11-25] MEDS: ASPIRIN 81 MG TAB.CHEW GT SCH (08:19)
[2016-11-25] MEDS: LINEZOLID 600 MG TABLET GT SCH ×2 (08:20→21:29)
[2016-11-25] MEDS: DOCUSATE SODIUM LIQ 100 MG/10 ML UDC GT SCH (08:20)
[2016-11-25] MEDS: LACTOBACILLUS RHAMNOSUS GG 1 EACH CAP.SPRINK GT SCH ×2 (08:20→17:20)
[2016-11-25] MEDS: PANTOPRAZOLE 40 MG VIAL IV SCH (08:27)
[2016-11-25] MEDS: ZINC SULFATE 220 MG CAPSULE GT SCH (08:27)
[2016-11-25] MEDS: PROSOURCE / PROSTAT (PYXIS) 30 ML UDC GT SCH (08:27)
[2016-11-25] MEDS: MULTIVIT, IRON, MIN NO. 8, FA 1 TAB TABLET GT SCH (08:27)
[2016-11-25] MEDS: MEMANTINE HCL 5 MG TABLET GT SCH (08:27)
[2016-11-25] MEDS: predniSONE 10 MG TABLET GT SCH (08:28)
[2016-11-25] MEDS: GLYTROL 1,000 ML BAG GT SCH (10:52)
--- NOTE | 2016-11-25 11:00 | NUR ---
RN NOTE PT HAS BEEN LETHARGIC THIS MORNING COMPARED TO YESTERDAY WILL CONTINUE TO MONITOR.
[2016-11-25 12:00] VITALS: BP 124/61
[2016-11-25] MEDS ORDERED: IV NS 0.9% 250 ML IV ONE (15:51)
[2016-11-25 16:00] VITALS: BP 129/76
--- NOTE | 2016-11-25 19:07 | NUR ---
RN CLOSING NOTE REPORT GIVEN TO GEORGINA OLVERA PM NURSE. PT A/OX1 MOUTH WORDS. PORTEX 8 AC 12 TV 500 FI02 40% PEEP 5. TELE SR. F/C INTACT. GTF GLYTROL @55 ML/HR TOLERATED FEEDING. IV BERNARD MIDLINE #20G FLUSHED PATENT AND INTACT. ALL ORDERS ALL MEDICATIONS GIVEN.
[2016-11-25 20:00] VITALS: BP 129/63
[2016-11-25] MEDS: ATORVASTATIN 40 MG TABLET GT SCH (21:29)
[2016-11-25] MEDS: INSULIN DETEMIR 100 UNIT/ML CARTRIDGE SQ SCH (22:00)
--- NOTE | 2016-11-25 23:21 | NUR ---
MED NOTE: 220 RAYMON HELD POC BLOOD GLUCOSE 134. WILL CONTINUE TO MONITOR.
[2016-11-26] VITALS: BP 116/68
[2016-11-26] MEDS: IPRATROPIUM NEB FS 0.5 MG/2.5 ML AMPUL.NEB IH SCH ×4 (01:23→19:29)
[2016-11-26] MEDS: ALBUTEROL FS 2.5 MG/3 ML VIAL.NEB NEB SCH ×4 (01:23→19:29)
[2016-11-26 04:00] VITALS: BP 111/60
[2016-11-26] MEDS: SUCRALFATE 1 G/10 ML UDC GT SCH ×3 (05:20→21:37)
[2016-11-26] MEDS: BLOOD SUGAR DIAGNOSTIC 1 EACH STRIP IN SCH ×3 (05:20→17:44)
[2016-11-26] MEDS: INSULIN REGULAR, HUMAN 100 UNIT/ML 3 ML VIAL SQ PRN ×3 (05:24→17:51)
--- NOTE | 2016-11-26 07:15 | NUR ---
RN INITIAL NOTE PT RECEIVED IN BED, SLEEPING. PT HAS TRACH PORTEX #8, AC-12, TV-500, FI02 40%, PEEP 5. SATING WELL. NO S/S OF RESPIRATORY DISTRESS OR SOB. SINUS RHYTHM ON TELE MONITOR. DOTY CATHETER DRAINING TO GRAVITY. RIGHT UPPER ARM MIDLINE FLUSHED AND PATENT. DRESSING C/D/I. G-TUBE, FLUSHED PATENT. PLACEMENT VERIFIED. GLYTROL RUNNING AT 55ML/HR. TOLERATING FEEDING WELL. NO RESIDUALS NOTED.SKIN IS WARM AND DRY TO TOUCH. SAFETY PRECAUTIONS IMPLEMENTED, BED IN LOCKED, LOW POSITION. TWO SIDE RAILS UP. CALL LIGHT WITHIN EASY REACH. WILL MONITOR CLOSELY.
[2016-11-26] MEDS: ACETYLCYSTEINE 10% SOLN 400 MG/4 ML VIAL NEB SCH ×2 (07:47→13:49)
[2016-11-26 08:00] VITALS: BP 116/64
[2016-11-26] MEDS: GLYTROL 1,000 ML BAG GT SCH (08:29)
[2016-11-26] MEDS: MULTIVIT, IRON, MIN NO. 8, FA 1 TAB TABLET GT SCH (08:29)
[2016-11-26] MEDS: FERROUS SULFATE UDC 300 MG/5 ML UDC GT SCH ×3 (08:29→16:03)
[2016-11-26] MEDS: DOCUSATE SODIUM LIQ 100 MG/10 ML UDC GT SCH (08:29)
[2016-11-26] MEDS: MEMANTINE HCL 5 MG TABLET GT SCH (08:29)
[2016-11-26] MEDS: PROSOURCE / PROSTAT (PYXIS) 30 ML UDC GT SCH (08:30)
[2016-11-26] MEDS: MAGNESIUM OXIDE 400 MG TABLET GT SCH ×2 (08:30→16:03)
[2016-11-26] MEDS: PANTOPRAZOLE 40 MG VIAL IV SCH (08:30)
[2016-11-26] MEDS: predniSONE 10 MG TABLET GT SCH (08:30)
[2016-11-26] MEDS: ASCORBIC ACID SYRUP 500 MG/5 ML UDC GT SCH (08:30)
[2016-11-26] MEDS: LINEZOLID 600 MG TABLET GT SCH ×2 (08:30→21:38)
[2016-11-26] MEDS: LACTOBACILLUS RHAMNOSUS GG 1 EACH CAP.SPRINK GT SCH ×2 (08:30→16:03)
[2016-11-26] MEDS: ASPIRIN 81 MG TAB.CHEW GT SCH (08:30)
[2016-11-26] MEDS: ZINC SULFATE 220 MG CAPSULE GT SCH (08:30)
[2016-11-26 12:00] VITALS: BP 132/70
[2016-11-26 12:18] LABS: BASOPHILS % (AUTO) 0.1 % (0.0-2.0); EOSINOPHILS # (AUTO) 0.1 /CMM (0.0-0.7); EOSINOPHILS % (AUTO) 0.6 % (0.0-6.0); HEMATOCRIT 31 % (33-45); HEMOGLOBIN 10.2 g/dL (11.5-14.8); LYMPHOCYTES # (AUTO) 0.7 /CMM (0.8-4.8); LYMPHOCYTES % (AUTO) 6.4 % (20.0-44.0); MEAN CORPUSCULAR HEMOGLOBIN 30 PG (26.0-33.0); MEAN CORPUSCULAR HGB CONC 33 g/dl (31.0-36.0); MEAN CORPUSCULAR VOLUME 90 fL (82-100); MONOCYTES # (AUTO) 0.1 /CMM (0.1-1.30); MONOCYTES % (AUTO) 1.1 % (2.0-12.0); NEUTROPHILS # (AUTO) 10.4 /CMM (1.8-8.9); NEUTROPHILS % (AUTO) 91.8 % (43.0-81.0); PLATELET COUNT (AUTO) 472 /CMM (150-450); RDW COEFFICIENT OF VARIATION 15.2 (11.5-15.0); RED BLOOD CELL COUNT(AUTO) 3.43 MIL/uL (4.0-5.2); WHITE BLOOD COUNT (AUTO) 11.4 K/uL (4.3-11.0)
[2016-11-26 12:27] LABS: CALCIUM, SERUM 8.6 mg/dL (8.5-10.1); CREATININE 0.5 mg/dL (0.6-1.3); POTASSIUM 4.6 mmol/L (3.5-5.1)
[2016-11-26 16:00] VITALS: BP 124/71
--- NOTE | 2016-11-26 18:59 | NUR ---
RN CLOSING NOTE ALL MD ORDERS CARRIED OUT. PT KEPT CLEAN AND DRY. SAFETY PRECAUTIONS IN PLACE AT ALL TIMES. ISOLATION PRECAUTIONS OBSERVED AT ALL TIMES. WILL GIVE REPORT TO PM RN FOR HECTOR.
--- NOTE | 2016-11-26 19:55 | NUR ---
RN INITIAL NOTE; PT ON THE BED NON VERBAL , CONTRACTED .[facility] ,SETTING ORDERED. TELE MONITOR SHOWING SR HR 90. BERNARD MIDLINE INTACT AND PATENT. G TUBE INTACT AND PATENT WITH CONTINUE GLYTROL @ 55 ML/HR . NO RESIDUAL . ASPIRATION PRECAUTION APPLIED. DOTY CATH INTACT AND DRAINING YELLOWISH URINE. BED IN THE LOWEST/LOCKED POSITION , SAFETY MEASURES APPLIED. WILL TURN AND REPOSITION Q2H AND NEEDED. WILL CONTINUE TO MONITOR .
[2016-11-26 20:00] VITALS: BP 113/64
[2016-11-26] MEDS: ATORVASTATIN 40 MG TABLET GT SCH (21:38)
[2016-11-26] MEDS: HEPARIN SODIUM, PORCINE 5000 UNITS/1 ML VIAL SQ SCH (21:39)
[2016-11-26] MEDS: INSULIN DETEMIR 100 UNIT/ML CARTRIDGE SQ SCH (21:47)
[2016-11-27] VITALS: BP 113/78
[2016-11-27] MEDS: BLOOD SUGAR DIAGNOSTIC 1 EACH STRIP IN SCH ×5 (00:10→23:20)
[2016-11-27] MEDS: INSULIN REGULAR, HUMAN 100 UNIT/ML 3 ML VIAL SQ PRN ×5 (00:10→23:19)
[2016-11-27] MEDS: ALBUTEROL FS 2.5 MG/3 ML VIAL.NEB NEB SCH ×4 (01:22→19:30)
[2016-11-27] MEDS: IPRATROPIUM NEB FS 0.5 MG/2.5 ML AMPUL.NEB IH SCH ×4 (01:22→19:30)
[2016-11-27] MEDS ORDERED: IV NS 0.9% 250 ML IV ONE (02:55)
[2016-11-27 04:00] VITALS: BP 116/59
[2016-11-27] MEDS: SUCRALFATE 1 G/10 ML UDC GT SCH ×3 (04:37→20:36)
[2016-11-27] MEDS: GLYTROL 1,000 ML BAG GT SCH (04:38)
[2016-11-27] MEDS: ACETYLCYSTEINE 10% SOLN 400 MG/4 ML VIAL NEB SCH ×2 (07:05→15:00)
--- NOTE | 2016-11-27 07:08 | NUR ---
RN EOS NOTE; PT REMAINED STABLE DURING THE SHIFT, ALL PRESCRIBED MEDS TOLERATED WELL. REMAINED SR IN TELE MONITOR, IV SITE INTACT AND PATENT .G TUBE INTACT AND PATENT , FEEDING TOLERATED WELL. ASPIRATION PRECAUTION APPLIED. TOTAL CARE RENDERED , KEPT CLEAN AND DRY . ENDORSED TO DAY SHIFT RN FOR CONTINUITY OF CARE.
--- NOTE | 2016-11-27 07:15 | NUR ---
RN INITIAL NOTE PT RECEIVED IN BED, RESTING COMFORTABLY. PT IS OBTUNDED. NO S/S OF PAIN OR DISCOMFORT. SATING WELL ON TRACH SETTINGS. PORTEX #8, AC-12, TV-500, FI02 40%, PEEP-5. NO S/S OF RESPIRATORY DISTRESS OR SOB. SINUS RHYTHM ON TELE MONITOR. DOTY CATHETER DRAINING TO GRAVITY. GTUBE, FLUSHED, PATENT. PLACEMENT VERIFIED. GLYTROL RUNNING AT 40ML/HR. TOLERATING FEEDING WELL. RIGHT UPPER ARM MIDLINE LINE FLUSHED AND PATENT. DRESSING C/D/I. SKIN IS WARM AND DRY TO TOUCH. SAFETY MEASURES IMPLEMENTED, BED IN LOCKED, LOW POSITION. TWO SIDE RAILS UP. WILL MONITOR CLOSELY.
[2016-11-27 08:00] VITALS: BP 123/70
[2016-11-27] MEDS: DOCUSATE SODIUM LIQ 100 MG/10 ML UDC GT SCH (08:54)
[2016-11-27] MEDS: LACTOBACILLUS RHAMNOSUS GG 1 EACH CAP.SPRINK GT SCH ×2 (08:54→16:10)
[2016-11-27] MEDS: ASCORBIC ACID SYRUP 500 MG/5 ML UDC GT SCH (08:54)
[2016-11-27] MEDS: ASPIRIN 81 MG TAB.CHEW GT SCH (08:54)
[2016-11-27] MEDS: FERROUS SULFATE UDC 300 MG/5 ML UDC GT SCH ×3 (08:54→16:10)
[2016-11-27] MEDS: PROSOURCE / PROSTAT (PYXIS) 30 ML UDC GT SCH (08:54)
[2016-11-27] MEDS: MEMANTINE HCL 5 MG TABLET GT SCH (08:54)
[2016-11-27] MEDS: PANTOPRAZOLE 40 MG VIAL IV SCH (08:54)
[2016-11-27] MEDS: MULTIVIT, IRON, MIN NO. 8, FA 1 TAB TABLET GT SCH (08:55)
[2016-11-27] MEDS: predniSONE 10 MG TABLET GT SCH (08:55)
[2016-11-27] MEDS: MAGNESIUM OXIDE 400 MG TABLET GT SCH ×2 (08:55→16:10)
[2016-11-27] MEDS: ZINC SULFATE 220 MG CAPSULE GT SCH (08:55)
[2016-11-27] MEDS: LINEZOLID 600 MG TABLET GT SCH ×2 (08:55→20:36)
[2016-11-27] MEDS: HEPARIN SODIUM, PORCINE 5000 UNITS/1 ML VIAL SQ SCH ×2 (08:59→20:37)
[2016-11-27 12:00] VITALS: BP 110/59
[2016-11-27 14:35] LABS: EOSINOPHILS % (AUTO) 0.2 % (0.0-6.0); HEMATOCRIT 30 % (33-45); HEMOGLOBIN 10.3 g/dL (11.5-14.8); LYMPHOCYTES # (AUTO) 0.7 /CMM (0.8-4.8); LYMPHOCYTES % (AUTO) 4.2 % (20.0-44.0); MEAN CORPUSCULAR HEMOGLOBIN 30 PG (26.0-33.0); MEAN CORPUSCULAR HGB CONC 34 g/dl (31.0-36.0); MEAN CORPUSCULAR VOLUME 89 fL (82-100); MONOCYTES # (AUTO) 0.1 /CMM (0.1-1.30); MONOCYTES % (AUTO) 0.4 % (2.0-12.0); NEUTROPHILS # (AUTO) 15.2 /CMM (1.8-8.9); NEUTROPHILS % (AUTO) 95.2 % (43.0-81.0); PLATELET COUNT (AUTO) 403 /CMM (150-450); RDW COEFFICIENT OF VARIATION 15.5 (11.5-15.0); RED BLOOD CELL COUNT(AUTO) 3.41 MIL/uL (4.0-5.2)
[2016-11-27 14:45] LABS: CALCIUM, SERUM 8.5 mg/dL (8.5-10.1); CREATININE 0.6 mg/dL (0.6-1.3); POTASSIUM 4.2 mmol/L (3.5-5.1)
[2016-11-27 16:00] VITALS: BP 120/58
[2016-11-27 19:10] LABS: LYMPHOCYTES % (MANUAL) 4 % (16-48); MONOCYTES % (MANUAL) 1 % (0-11.0); NEUTROPHILS % (MANUAL) 95 (42-76); PLATELET ESTIMATE ADEQUATE
--- NOTE | 2016-11-27 19:19 | NUR ---
RN CLOSING NOTE ALL MD ORDERS CARRIED OUT. PT KEPT CLEAN AND DRY. SAFETY PRECAUTIONS IN PLACE AT ALL TIMES. ISOLATION PRECAUTIONS OBSERVED ALWAYS. REPORT GIVEN TO PM RN FOR HECTOR.
[2016-11-27 20:00] VITALS: BP 123/67
[2016-11-27] MEDS: ATORVASTATIN 40 MG TABLET GT SCH (23:10)
[2016-11-27] MEDS: INSULIN DETEMIR 100 UNIT/ML CARTRIDGE SQ SCH (23:19)
[2016-11-28] VITALS: BP 103/61
[2016-11-28] MEDS: GLYTROL 1,000 ML BAG GT SCH (01:10)
[2016-11-28] MEDS: ALBUTEROL FS 2.5 MG/3 ML VIAL.NEB NEB SCH ×3 (02:17→14:00)
[2016-11-28] MEDS: IPRATROPIUM NEB FS 0.5 MG/2.5 ML AMPUL.NEB IH SCH ×3 (02:18→14:00)
[2016-11-28 04:00] VITALS: BP 106/77
[2016-11-28] MEDS: SUCRALFATE 1 G/10 ML UDC GT SCH ×2 (05:31→13:58)
[2016-11-28] MEDS: BLOOD SUGAR DIAGNOSTIC 1 EACH STRIP IN SCH ×2 (05:56→12:00)
[2016-11-28] MEDS: INSULIN REGULAR, HUMAN 100 UNIT/ML 3 ML VIAL SQ PRN ×2 (06:01→13:07)
[2016-11-28 06:48] LABS: BASOPHILS % (AUTO) 0.4 % (0.0-2.0); EOSINOPHILS # (AUTO) 0.1 /CMM (0.0-0.7); EOSINOPHILS % (AUTO) 1.2 % (0.0-6.0); HEMATOCRIT 28 % (33-45); HEMOGLOBIN 9.2 g/dL (11.5-14.8); LYMPHOCYTES # (AUTO) 2.4 /CMM (0.8-4.8); LYMPHOCYTES % (AUTO) 22.5 % (20.0-44.0); MEAN CORPUSCULAR HEMOGLOBIN 30 PG (26.0-33.0); MEAN CORPUSCULAR HGB CONC 33 g/dl (31.0-36.0); MEAN CORPUSCULAR VOLUME 90 fL (82-100); MONOCYTES # (AUTO) 0.3 /CMM (0.1-1.30); NEUTROPHILS # (AUTO) 7.9 /CMM (1.8-8.9); NEUTROPHILS % (AUTO) 72.9 % (43.0-81.0); PLATELET COUNT (AUTO) 358 /CMM (150-450); RDW COEFFICIENT OF VARIATION 15.4 (11.5-15.0); WHITE BLOOD COUNT (AUTO) 10.8 K/uL (4.3-11.0)
[2016-11-28 06:54] LABS: CALCIUM, SERUM 8.6 mg/dL (8.5-10.1); CREATININE 0.5 mg/dL (0.6-1.3); POTASSIUM 3.2 mmol/L (3.5-5.1)
[2016-11-28] MEDS: ACETYLCYSTEINE 10% SOLN 400 MG/4 ML VIAL NEB SCH ×2 (07:14→14:00)
--- NOTE | 2016-11-28 07:15 | NUR ---
RN INITIAL NOTE PT RECEIVED IN BED, RESTING COMFORTABLY. PT IS NONVERBAL. SINUS RHYTHM ON TELE MONITOR. SATING WELL WITH TRACH SETTINGS, PORTEX #8. AC-12, TV-500, FI02 40%, PEEP-5. NO S/S OF RESPIRATOR DISTRESS OR SOB. DOTY CATHETER DRAINING TO GRAVITY. GTUBE, FLUSHED AND PATENT. PLACEMENT VERIFIED. GLYTROL RUNNING AT 55ML/HR. TOLERATING SETTINGS WELL. RIGHT UPPER ARM MIDLINE FLUSHED, PATENT. SKIN IS WARM AND DRY TO TOUCH. SAFETY PRECAUTIONS IN PLACE. BED IN LOCKED, LOW POSITION WITH TWO SIDE RAILS UP. CALL LIGHT WITHIN EASY REACH. WILL MONITOR CLOSELY.
[2016-11-28 08:00] VITALS: BP 122/66
[2016-11-28] MEDS: FERROUS SULFATE UDC 300 MG/5 ML UDC GT SCH ×2 (08:28→13:58)
[2016-11-28] MEDS: LACTOBACILLUS RHAMNOSUS GG 1 EACH CAP.SPRINK GT SCH (08:28)
[2016-11-28] MEDS: MULTIVIT, IRON, MIN NO. 8, FA 1 TAB TABLET GT SCH (08:28)
[2016-11-28] MEDS: DOCUSATE SODIUM LIQ 100 MG/10 ML UDC GT SCH (08:28)
[2016-11-28] MEDS: MEMANTINE HCL 5 MG TABLET GT SCH (08:28)
[2016-11-28] MEDS: ASCORBIC ACID SYRUP 500 MG/5 ML UDC GT SCH (08:28)
[2016-11-28] MEDS: ZINC SULFATE 220 MG CAPSULE GT SCH (08:28)
[2016-11-28] MEDS: predniSONE 10 MG TABLET GT SCH (08:28)
[2016-11-28] MEDS: MAGNESIUM OXIDE 400 MG TABLET GT SCH (08:28)
[2016-11-28] MEDS: PROSOURCE / PROSTAT (PYXIS) 30 ML UDC GT SCH (08:28)
[2016-11-28] MEDS: LINEZOLID 600 MG TABLET GT SCH (08:28)
[2016-11-28] MEDS: ASPIRIN 81 MG TAB.CHEW GT SCH (08:28)
[2016-11-28] MEDS: PANTOPRAZOLE 40 MG VIAL IV SCH (08:28)
[2016-11-28] MEDS: HEPARIN SODIUM, PORCINE 5000 UNITS/1 ML VIAL SQ SCH (08:30)
[2016-11-28] MEDS ORDERED: ACET1OOV6 NEB (11:30)
[2016-11-28] MEDS: POTASSIUM CHLORIDE 20 MEQ POWDER PACKET GT SCH ×2 (11:51→12:54)
[2016-11-28 12:00] VITALS: BP 121/60
--- NOTE | 2016-11-28 13:00 | NUR ---
RN NOTE PT DISCHARGED TO [facility]. REPORT CALLED TO KAYCE. AMBULANCE SCHEDULED FOR 1529
[2016-11-28 16:00] VITALS: BP 97/44
[2016-11-28] MEDS: MORPHINE SULFATE INJ 2 MG/ML DISP.SYRIN IV PRN (16:27)
[2016-11-28] MEDS: HYDROCODONE/APAP 5/325MG 1 EACH TABLET GT PRN (17:09)
--- NOTE | 2016-11-28 17:12 | NUR ---
RN CLOSING NOTE PT LEFT WITH EMT (WILL)
== END 2016-11-28 17:09 | DRG 720 ==
LOC: ER 16:30 → ICU 19:19 → TELE-TD 11-19 17:05 → TELE1 11-20 10:11
PROVIDERS: ADMIT Internal Medicine; ATTEND Internal Medicine
PROC: 5A1955Z Respiratory Ventilation, Greater than 96 Consecutive Hours (ICD-10-PCS; principal; 2016-11-18)
PROC: 05H533Z Insertion of Infusion Device into Right Subclavian Vein, Percutaneous Approach (ICD-10-PCS; 2016-11-19)
DX: A41.9 Sepsis, unspecified organism (principal); J96.20 Acute and chronic respiratory failure, unspecified whether with hypoxia or hypercapnia; I21.4 Non-ST elevation (NSTEMI) myocardial infarction; R65.21 Severe sepsis with septic shock; J69.0 Pneumonitis due to inhalation of food and vomit; G93.41 Metabolic encephalopathy; T17.890A Other foreign object in other parts of respiratory tract causing asphyxiation, initial encounter; Z99.11 Dependence on respirator [ventilator] status; Z93.0 Tracheostomy status; J15.6 Pneumonia due to other Gram-negative bacteria; R53.2 Functional quadriplegia; N39.0 Urinary tract infection, site not specified; E44.0 Moderate protein-calorie malnutrition; Z93.1 Gastrostomy status; R13.10 Dysphagia, unspecified; Z86.73 Personal history of transient ischemic attack (TIA), and cerebral infarction without residual deficits; B95.2 Enterococcus as the cause of diseases classified elsewhere; E87.6 Hypokalemia; E87.1 Hypo-osmolality and hyponatremia; E11.9 Type 2 diabetes mellitus without complications; E78.5 Hyperlipidemia, unspecified; G30.9 Alzheimer's disease, unspecified; F02.80 Dementia in other diseases classified elsewhere, unspecified severity, without behavioral disturbance, psychotic disturbance, mood disturbance, and anxiety; I25.10 Atherosclerotic heart disease of native coronary artery without angina pectoris; N20.0 Calculus of kidney; Z79.899 Other long term (current) drug therapy; I10 Essential (primary) hypertension; D68.59 Other primary thrombophilia; G81.90 Hemiplegia, unspecified affecting unspecified side; J98.11 Atelectasis; J44.1 Chronic obstructive pulmonary disease with (acute) exacerbation; D64.9 Anemia, unspecified; I07.1 Rheumatic tricuspid insufficiency; Y95 Nosocomial condition
CPT/HCPCS: 31720; 36415; 36569; 36600; 71010-TC; 71250-TC; 80048-TC; 80053-TC; 80061-TC; 80076-TC; 80202-TC; 81000-TC; 82272-TC; 82553-TC; 82803-TC; 82962-TC; 83540-TC; 83605-TC; 83735-TC; 84100-TC; 84443-TC; 84484-TC; 84550-TC; 85025-TC; 85730-TC; 87040-TC; 87081-TC; 87086-TC; 87186-TC; 87400; 93307-TC; 94002-TC; 94003-TC; 94760-TC; 94761-TC; 94762-TC; 99082-TC; A4217; A4606; A6402; C9113; J1644; J1815; J2270; J2543; J2930; J3370; J7030; J7050; J7060; Z7610

== ENCOUNTER 2017-04-01 02:26 | Inpatient (IN) | payer MEDICARE, OTHER ==
[~2017-04-01] VITALS: Ht 157.5 cm; Wt 52.6 kg
[~2017-04-01 02:26] MED LIST: ACET1OOV6 NEB; ACET650S26 GT; AMIN30LI4 GT; ASCO500S2 GT; ATOR40TA GT; BISA10SU8 RC; BLOO-668 IN; CLON0.1T GT; DOCU50LI GT; FAMO20TA8 GT; FERR300L GT; HYDR-4077 GT; INSU100I19 SQ; INSU100V3 SQ; IPRA0.2S9 IH; LEVA1.25 IH; LOSA100T15 GT; MAGN400T26 GT; MEMA5TAB GT; METO25TA6 GT; MULT-659 GT; NA P133E RC; NUT.237L30 GT; POLY15DR57 EACHEYE; SUCR1ORA GT; ZINC220C8 GT
--- NOTE | 2017-04-01 02:26 | NUR ---
72 YO FEMALE BB RA FROM SNF. PT IS ALERT X 0, NON VERBAL, PER EMS, PT WAS NOTED TO BE TACHYCARDIC AND WARM TO TOUCH. EMS TRASNPORTED TO [facility]. PT IS NOTED TO BE TACHYCARDIC WITH RATE OF 130'S, PT IS TRACHE/ VENT DEPENDENT. VENT SETTINGS: AC 12, TV 500 FIO2 40% PEEP5. PT WAS GOWNED, PLACED ON REPAIRER SWITCHGEAR. RECTAL TEMP NOTED 103.2, MD NOTIFIED. CODE SEPSIS WAS ACTIVATED. AWAITING ORDERS FROM PROVIDER, WILL CONTINUE TO MONITOR
--- NOTE | 2017-04-01 02:26 | NUR ---
to bed 5 bib paramedics c/o fever. pt nonverbal, chronic trache, vent dependent. place pt on cardiac monitoring, continuous pox. rt at bedside to place pt on vent. skin hot to touch, nondiaphoretic. sarted sl 18g to R forearm, blood drawn and sent to lab. 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 er md at bedside to eval pt with orders received. will carry out orders.
[2017-04-01] MEDS ORDERED: IV NS 0.9% 1,000 ML BAG IV ONE ×2 (02:30→03:00)
--- NOTE | 2017-04-01 02:30 | NUR ---
MEDICATED PT ORDERED
[2017-04-01] MEDS ORDERED: ACETAMINOPHEN 650 MG/SUPP.RECT RC ONE ×2 (02:32→03:00)
[2017-04-01 02:35] VITALS: BP 112/49
--- NOTE | 2017-04-01 02:41 | NUR ---
pt medicated as ordered.
[2017-04-01 02:53] LABS: APPEARANCE,URINE CLOUDY (CLEAR); BILIRUBIN,URINE NEGATIVE (NEGATIVE); BLOOD, URINE TRACE-INTA Ery/uL (NEGATIVE); COLOR,URINE YELLOW (YELLOW); KETONES,URINE NEGATIVE (NEGATIVE); LEUKOCYTE ESTERASE ,URINE 3+ (NEGATIVE); NITRITE, URINE POSITIVE (NEGATIVE); PH,URINE 8.5 (5.0-8.0); PROTEIN,URINE TRACE mg/dl (NEGATIVE); UGLUCOSE NEGATIVE (NEGATIVE)
[2017-04-01 02:54] LABS: EOSINOPHILS % (AUTO) 0.1 % (0.0-6.0); HEMATOCRIT 32 % (33-45); HEMOGLOBIN 10.2 g/dL (11.5-14.8); MEAN CORPUSCULAR HEMOGLOBIN 29 PG (26.0-33.0); MEAN CORPUSCULAR HGB CONC 32 g/dl (31.0-36.0); MEAN CORPUSCULAR VOLUME 91 fL (82-100); MONOCYTES # (AUTO) 0.8 /CMM (0.1-1.30); NEUTROPHILS # (AUTO) 22.7 /CMM (1.8-8.9); NEUTROPHILS % (AUTO) 88.9 % (43.0-81.0); PLATELET COUNT (AUTO) 560 /CMM (150-450); RDW COEFFICIENT OF VARIATION 16.3 (11.5-15.0); RED BLOOD CELL COUNT(AUTO) 3.48 MIL/uL (4.0-5.2); WHITE BLOOD COUNT (AUTO) 25.5 K/uL (4.3-11.0)
[2017-04-01 03:00] LABS: BACTERIA,URINE 3+ /HPF (None Seen); SQUAMOUS EPITHELIAL CELL,UR Few /HPF (None Seen); TRIPLE PHOSPHATE CRYSTAL,UR Moderate /HPF (None Seen); URINE AMORPHOUS URATE Many /HPF (None Seen)
[2017-04-01 03:03] LABS: CALCIUM, SERUM 8.5 mg/dL (8.5-10.1); CARBON DIOXIDE 30 mmol/L (21-32); CHLORIDE 104 mmol/L (98-107); CREATININE 0.6 mg/dL (0.6-1.3); GLUCOSE 162 mg/dL (74-106); POTASSIUM 3.9 mmol/L (3.5-5.1); SODIUM SERUM 141 mmol/L (136-145); UREA NITROGEN, BLOOD 35 mg/dL (7-18)
[2017-04-01] MEDS ORDERED: LINEZOLID RTU BAG 600 MG in PREMIX 1 EA IV STA (03:04)
[2017-04-01 03:10] LABS: TROPONIN I < 0.017 ng/mL (0.00-0.056)
[2017-04-01 03:16] LABS: ALANINE AMINOTRANSFERASE 19 U/L (12-78); ALBUMIN 2.1 g/dL (3.4-5.0); ALKALINE PHOSPHATASE 138 U/L (46-116); ASPARTATE AMINOTRANSFERASE 17 U/L (15-37); B-TYPE NATRIURETIC PEPTIDE 597 PG/ML (0-125); BILIRUBIN,DIRECT 0.1 mg/dL (0.0-0.2); BILIRUBIN,TOTAL 0.2 mg/dL (0.2-1.0); TOTAL PROTEIN, SERUM 7.5 g/dL (6.4-8.2)
[2017-04-01] MEDS ORDERED: LEVA1.25 IH (03:16)
[2017-04-01] MEDS ORDERED: ACET-73 PO (03:16)
[2017-04-01] MEDS ORDERED: CRAN3875 GT (03:16)
[2017-04-01] MEDS ORDERED: HYDR-552 PO (03:16)
[2017-04-01] MEDS ORDERED: MAGN2400 GT (03:16)
[2017-04-01] MEDS ORDERED: INSU300I SQ (03:16)
[2017-04-01] MEDS ORDERED: SACC250C6 GT (03:16)
[2017-04-01] MEDS ORDERED: TRAM50TA92 GT (03:16)
[2017-04-01] MEDS ORDERED: AMIN887L7 GT (03:16)
[2017-04-01] MEDS ORDERED: NUT.237L31 GT (03:16)
[2017-04-01] MEDS ORDERED: IPRA0.2S49 IH (03:16)
[2017-04-01 03:17] LABS: INR 0.99 (0.87-1.13); PROTHROMBIN TIME 10.6 SECS (9.5-12.7)
[2017-04-01] MEDS ORDERED: LINEZOLID RTU BAG 300 ML IV ONE (03:24)
[2017-04-01] MEDS ORDERED: AZTREONAM 1 G VIAL ONE (03:47)
[2017-04-01] MEDS ORDERED: AZTREONAM 1 G in IV NS 0.9% 100 ML IV ONE (04:00)
--- NOTE | 2017-04-01 04:35 | NUR ---
HYDRO MECHANIC: RECEIVED VENT-DEPENDENT PT FROM E.R. WT PRIMARY DX: SEPSIS. PT IS ALERT AND AWAKE, ABLE TO FOLLOW SIMPLE COMMANDS. TOLERATING VENT SETTINGS ORDERED. NO ACUTE DISTRESS, NO EVIDENCE OF DISCOMFORT. LEFT FA IV SITE INFUSING AZACTAM AND ZYVOX STARTED FROM E.R. BODY ASSESSMENT DONE WT MULT. WOUNDS AND DISCOLORATION. GOOD SKIN CARE RENDERED. HOB ELEVATED. 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 PNEUMONIAE IN URINE AND C-DIFF STOOL. SAFETY PRECAUTION NOTED. . 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 AFEBRILE AT THIS TIME. WILL CONTINUE TO MONITOR
[2017-04-01 04:40] VITALS: BP 123/68
[2017-04-01 05:03] LABS: BAND % (MANUAL) 5 % (0.0-5.0); LYMPHOCYTES % (MANUAL) 6 % (16-48); MONOCYTES % (MANUAL) 5 % (0-11.0); NEUTROPHILS % (MANUAL) 84 (42-76)
--- NOTE | 2017-04-01 05:30 | NUR ---
DIRECTOR OF MARKET INTELLIGENCE: CALLED AND NOTIFIED DR. FRANKS OF PT'S ADMISSION AND SAID HE WILL PLACE ORDERS SOON AND ASKED IF PT NEEDS ANYTHING AT THIS TIME. MD INFORMED THAT THERE'S NO NEED FOR ANY MEDICAL INTERVENTION PT IS STABLE AT THIS TIME.
[2017-04-01] MEDS ORDERED: IPRATROPIUM NEB FS 0.5 MG/2.5 ML AMPUL.NEB IH PRN (06:30)
[2017-04-01] MEDS ORDERED: CLONIDINE HCL 0.1 MG TABLET GT PRN (06:30)
[2017-04-01] MEDS ORDERED: BISACODYL SUPP (10 MG) 10 MG/SUPP.RECT SUPP.RECT RC PRN (06:30)
[2017-04-01] MEDS ORDERED: DEXTROSE 50%-WATER 50 ML DISP.SYRIN IV PRN (06:30)
[2017-04-01] MEDS ORDERED: NA PHOS,M-B/NA PHOS,DI-BA 1 EA ENEMA RC PRN (06:30)
--- NOTE | 2017-04-01 07:15 | NUR ---
RN INITIAL NOTE PATIENT RECEIVED IN BED, NO S/S OF PAIN OR DISCOMFORT. SINUS RHYTHM ON TELE MONITOR. PT HAS TRACH, PORTEX 7, VENT SETTINGS AC -12-TV-500 FI02 40%, PEEP -5, SATING WELL. SKIN IS WARM AND DRY TO TOUCH. DOTY CATH DRAINING TO GRAVITY. SAFETY PRECAUTIONS IMPLEMENTED. WILL CONTINUE TO MONITOR.
[2017-04-01 08:00] VITALS: BP 123/59
[2017-04-01] MEDS: IPRATROPIUM NEB FS 0.5 MG/2.5 ML AMPUL.NEB IH SCH ×3 (08:20→19:49)
[2017-04-01] MEDS ORDERED: POLYVINYL ALCOHOL 15 ML BOTTLE EACHEYE PRN (09:00)
[2017-04-01] MEDS ORDERED: ASCORBIC ACID SYRUP 500 MG/5 ML UDC GT SCH (09:00)
[2017-04-01] MEDS: ACETYLCYSTEINE 10% SOLN 400 MG/4 ML VIAL NEB SCH ×2 (09:18→19:50)
[2017-04-01] MEDS ORDERED: MAGNESIUM HYDROXIDE 30 ML UDC GT PRN (09:30)
[2017-04-01] MEDS: FAMOTIDINE (20 MG) 20 MG TABLET GT SCH (09:38)
[2017-04-01] MEDS: MULTIVIT, IRON, MIN NO. 8, FA 1 TAB GT SCH (09:38)
[2017-04-01] MEDS: DOCUSATE SODIUM LIQ 100 MG/10 ML UDC GT SCH (09:38)
[2017-04-01] MEDS: ZINC SULFATE 220 MG CAPSULE GT SCH (09:38)
[2017-04-01] MEDS: FERROUS SULFATE UDC 300 MG/5 ML UDC GT SCH ×3 (09:38→16:13)
[2017-04-01] MEDS: LOSARTAN POTASSIUM 50 MG TABLET GT SCH (09:39)
[2017-04-01] MEDS: METOPROLOL TARTRATE 25 MG TABLET GT SCH ×2 (09:39→16:24)
[2017-04-01] MEDS: MEMANTINE HCL 5 MG TABLET GT SCH (09:48)
[2017-04-01] MEDS: LACTOBACILLUS RHAMNOSUS GG 1 EACH CAP.SPRINK PO SCH ×2 (10:00→16:24)
[2017-04-01] MEDS ORDERED: LEVOFLOXACIN 500 MG /D5W 100ML 500 MG in PREMIX 1 EA IV SCH (10:00)
[2017-04-01] MEDS: PROSOURCE / PROSTAT (PYXIS) 30 ML UDC GT SCH ×2 (10:00→16:24)
[2017-04-01 12:00] VITALS: BP 127/60
[2017-04-01] MEDS: SUCRALFATE 1 G/10 ML UDC GT SCH ×2 (12:41→21:30)
[2017-04-01] MEDS: BLOOD SUGAR DIAGNOSTIC 1 EACH STRIP IN SCH ×3 (12:42→23:19)
[2017-04-01] MEDS: ASCORBIC ACID 500 MG TABLET GT SCH (12:55)
[2017-04-01] MEDS: ALBUTEROL FS 2.5 MG/3 ML VIAL.NEB NEB SCH ×2 (13:21→19:49)
[2017-04-01] MEDS ORDERED: ALBUTEROL FS 2.5 MG/3 ML VIAL.NEB NEB PRN (13:30)
[2017-04-01] MEDS: GLYTROL 1,000 ML BAG GT SCH (13:41)
[2017-04-01] MEDS: ACETAMINOPHEN 650 MG/20.3 ML UDC GT PRN ×2 (13:52→21:30)
[2017-04-01 16:00] VITALS: BP 118/55
--- NOTE | 2017-04-01 16:00 | NUR ---
RN NOTE PATIENT RUNNING FEVER. ORDERED COOLING BLANKET.
[2017-04-01] MEDS: LINEZOLID RTU BAG 600 MG in PREMIX 1 EA IV SCH (16:03)
[2017-04-01] MEDS: PANTOPRAZOLE 40 MG VIAL IV SCH (16:24)
[2017-04-01] MEDS ORDERED: IBUPROFEN SUSP 100 MG/5 ML UDC PO PRN (16:30)
[2017-04-01] MEDS ORDERED: IBUPROFEN 600 MG TABLET PO PRN (17:00)
[2017-04-01] MEDS: INSULIN REGULAR, HUMAN 100 UNIT/ML 3 ML VIAL SQ PRN ×2 (17:00→23:18)
[2017-04-01] MEDS ORDERED: MEROPENEM 500 MG in IV NS 0.9% 50 ML IV SCH (18:00)
[2017-04-01] MEDS: MEROPENEM 500 MG in IV NS 0.9% 50 ML IV SCH (18:38)
[2017-04-01] MEDS: METRONIDAZOLE 500 MG TABLET PO SCH (18:38)
[2017-04-01] MEDS ORDERED: LIDOCAINE 1%-EPI 1:100,000 20 ML VIAL TP ONE (19:00)
--- NOTE | 2017-04-01 19:02 | NUR ---
RN CLOSING NOTE ALL PATIENTS NEEDS ANTICIPATED. KEPT PATIENT CLEAN AND DRY. CARRIED OUT ALL MD ORDERS. WILL GIVE REPORT TO PM RN FOR HECTOR.
[2017-04-01 20:00] VITALS: BP 120/56
[2017-04-01] MEDS: MAGNESIUM OXIDE 400 MG TABLET GT SCH (21:30)
[2017-04-01] MEDS: INSULIN DETEMIR 100 UNIT/ML CARTRIDGE SQ SCH (21:37)
[2017-04-02] VITALS (7 sets, daily range): BP systolic 105–151; BP diastolic 45–70
[2017-04-02] MEDS: ALBUTEROL FS 2.5 MG/3 ML VIAL.NEB NEB SCH ×4 (01:29→19:45)
[2017-04-02] MEDS: IPRATROPIUM NEB FS 0.5 MG/2.5 ML AMPUL.NEB IH SCH ×4 (01:29→19:45)
[2017-04-02] MEDS: LINEZOLID RTU BAG 600 MG in PREMIX 1 EA IV SCH ×2 (03:24→15:32)
[2017-04-02] MEDS: METRONIDAZOLE 500 MG TABLET PO SCH ×3 (05:48→21:29)
[2017-04-02] MEDS: SUCRALFATE 1 G/10 ML UDC GT SCH ×3 (05:48→21:28)
[2017-04-02] MEDS: BLOOD SUGAR DIAGNOSTIC 1 EACH STRIP IN SCH ×4 (06:11→23:01)
--- NOTE | 2017-04-02 06:16 | NUR ---
RN NOTES RECEIVED PATIENT WITH EYES CLOSE, AROUSABLE TO TACTILE AND AUDITORY STIMULI. NOTED WITH ELEVATED TEMPERATURE OF 102.5, COOLING MEASURES PROVIDED. TYLENOL GIVEN, WITH HELP. TEMPERATURE WENT DOWN TO 100.9 AFTER AN HOUR. NO PHYSICAL MANIFESTATION OF PAIN OR DISCOMFORT. CONTINUOUSLY MONITORED. ABDOMEN SOFT AND NON TENDER. BOWEL SOUNDS PRESENT IN ALL FOUR QUADRANTS. GTUBE INTACT, FEEDING WELL TOLERATED. HOB ELEVATED. NO RESPIRATORY DISTRESS OR SHORTNESS OF BREATH. BREATHING EVEN AND UNLABORED. DOTY CATHETER IN PLACE DRAINING CLEAR YELLOW WITH NO FOUL ODOR URINE. FOR WOUND DEBRIBEMENT. TEMPERATURE AT 0600 98. WILL ENDORSE TO AM SHIFT FOR CONTINUITY OF CARE.
--- NOTE | 2017-04-02 07:36 | NUR ---
RN NOTES RECEIVED PT IN STABLE CONDITION, CHRONIC VENT TRACH DEPENDENT, NON VERBAL. A&OX1 FOLLOWS SIMPLE COMMANDS. TOLERATING VENT SETTINGS WELL AT THIS TIME. GLYTROL AT 65ML/HR. FA 18 GAUGE IV SITE DRY AND INTACT. DOTY DRAINING TO GRAVITY. SR ON THE MONITOR HR IN THE 80S. SIDE RAILS UPX3, CALL LIGHT WITHIN REACH, BED LOCKED AND IN LOWEST POSITION WILL CONT TO MONITOR.
[2017-04-02] MEDS: ACETYLCYSTEINE 10% SOLN 400 MG/4 ML VIAL NEB SCH ×2 (08:01→19:45)
[2017-04-02] MEDS: DOCUSATE SODIUM LIQ 100 MG/10 ML UDC GT SCH (08:02)
[2017-04-02 08:13] LABS: BASOPHILS % (AUTO) 0.2 % (0.0-2.0); EOSINOPHILS # (AUTO) 0.1 /CMM (0.0-0.7); EOSINOPHILS % (AUTO) 0.6 % (0.0-6.0); HEMATOCRIT 27 % (33-45); HEMOGLOBIN 8.7 g/dL (11.5-14.8); LYMPHOCYTES # (AUTO) 1.7 /CMM (0.8-4.8); LYMPHOCYTES % (AUTO) 17.1 % (20.0-44.0); MEAN CORPUSCULAR HEMOGLOBIN 29 PG (26.0-33.0); MEAN CORPUSCULAR HGB CONC 32 g/dl (31.0-36.0); MEAN CORPUSCULAR VOLUME 91 fL (82-100); MONOCYTES # (AUTO) 0.5 /CMM (0.1-1.30); MONOCYTES % (AUTO) 4.9 % (2.0-12.0); NEUTROPHILS # (AUTO) 7.4 /CMM (1.8-8.9); NEUTROPHILS % (AUTO) 77.2 % (43.0-81.0); PLATELET COUNT (AUTO) 383 /CMM (150-450); RDW COEFFICIENT OF VARIATION 16.3 (11.5-15.0); WHITE BLOOD COUNT (AUTO) 9.6 K/uL (4.3-11.0)
[2017-04-02] MEDS: MEROPENEM 500 MG in IV NS 0.9% 50 ML IV SCH ×2 (08:14→22:38)
[2017-04-02] MEDS: LACTOBACILLUS RHAMNOSUS GG 1 EACH CAP.SPRINK PO SCH ×2 (08:15→17:10)
[2017-04-02] MEDS: FERROUS SULFATE UDC 300 MG/5 ML UDC GT SCH ×3 (08:15→17:11)
[2017-04-02] MEDS: PANTOPRAZOLE 40 MG VIAL IV SCH ×2 (08:15→17:10)
[2017-04-02] MEDS: FAMOTIDINE (20 MG) 20 MG TABLET GT SCH (08:16)
[2017-04-02] MEDS: ASCORBIC ACID 500 MG TABLET GT SCH (08:16)
[2017-04-02] MEDS: ZINC SULFATE 220 MG CAPSULE GT SCH (08:16)
[2017-04-02] MEDS: MULTIVIT, IRON, MIN NO. 8, FA 1 TAB GT SCH (08:16)
[2017-04-02] MEDS: MEMANTINE HCL 5 MG TABLET GT SCH (08:16)
[2017-04-02] MEDS: PROSOURCE / PROSTAT (PYXIS) 30 ML UDC GT SCH ×2 (08:17→17:14)
[2017-04-02] MEDS: LOSARTAN POTASSIUM 50 MG TABLET GT SCH (08:17)
[2017-04-02] MEDS: METOPROLOL TARTRATE 25 MG TABLET GT SCH ×2 (08:18→17:13)
[2017-04-02 08:33] LABS: CALCIUM, SERUM 8.3 mg/dL (8.5-10.1); CREATININE 0.4 mg/dL (0.6-1.3); POTASSIUM 3.2 mmol/L (3.5-5.1)
[2017-04-02] MEDS: POTASSIUM CHLORIDE 20 MEQ POWDER PACKET NG SCH ×2 (11:19→12:25)
--- NOTE | 2017-04-02 12:00 | NUR ---
RN NOTES CALL FROM MICROBIOLOGY AT [facility], PT POSITIVE FOR CDIFF. CA FELIX.
--- NOTE | 2017-04-02 12:15 | NUR ---
RN NOTES PT HAS 100.0 FEVER, COOLING BLANKET APPLIED, TYLENOL ADMINISTERED WILL CONT TO MONITOR.
[2017-04-02] MEDS: GLYTROL 1,000 ML BAG GT SCH (12:25)
[2017-04-02] MEDS: ACETAMINOPHEN 650 MG/20.3 ML UDC GT PRN (12:25)
[2017-04-02] MEDS: VANCOMYCIN HCL 125 MG/2.5 ML ORAL.SUSP GT SCH ×3 (12:41→23:27)
--- NOTE | 2017-04-02 14:00 | NUR ---
RN NOTES PT STILL HAS 100 FEVER, PIT FURNACE OPERATOR EUNICE MADE AWARE. NO FURTHER ORDERS. CALL MADE TO DAMIAN NEXT OF KIN ON FACESHEET FOR CONSENT FOR WOUND DEBRIDEMENT, NO ANSWER MESSAGE LEFT.
[2017-04-02] MEDS: INSULIN REGULAR, HUMAN 100 UNIT/ML 3 ML VIAL SQ PRN ×2 (17:33→23:01)
--- NOTE | 2017-04-02 18:32 | NUR ---
RN NOTES PT RESTING IN BED, TOLERATING VENT SETTINGS, NO SOB OR DISTRESS NOTED. PT SUCTIONED, TEMP 99.5 AT THIS TIME. ALL ORDERS FOLLOWED. PT CLEANED, CHANGED, AND REPOSITIONED. NO SIGNIFICANT CHANGES. CALL LIGHT WITHIN REACH, SIDE RAILS UP, BED LOCKED AND IN LOWEST POSITION, WILL ENDORSE TO ONCOMING SHIFT.
--- NOTE | 2017-04-02 20:00 | NUR ---
INTERACTIVE ACCOUNT MANAGER NOTE PT IN BED AWAKE. ALERT, FOLLOWS COMMAND. ON VENT/TRACH TOLERATING THE SETTINGS WELL. NO DISTRESS OR DISCOMFORT NOTED. DENIES PAIN. F/C INTACT AND PATENT DRAINING YELLOWISH COLOR URINE. WOUND DRESSING I/C/D. GT FEEDING GLYTROL INFUSING AT 60 ML/HR, 0 ML RESIDUAL NOTED. ON TELE SR HR 74. REPOSITION HER Q2H. INCONTINENCE CARE GIVEN. BLACK STOOL NOTED. KEPT HER DRY AND CLEAN. SIDE RAILS UP X 3 AND CALL LIGHT WITHIN REACH. VSS. RECTAL TEMP WNL. COOLING BLANKET ON. CONTINUE TO MONITOR HER.
[2017-04-02] MEDS: VANCOMYCIN 1 GM in IV D5W 250 ML IV SCH (21:28)
[2017-04-02] MEDS: MAGNESIUM OXIDE 400 MG TABLET GT SCH (21:28)
[2017-04-02] MEDS: INSULIN DETEMIR 100 UNIT/ML CARTRIDGE SQ SCH (22:59)
[2017-04-03] VITALS: BP 131/63
[2017-04-03] MEDS: IPRATROPIUM NEB FS 0.5 MG/2.5 ML AMPUL.NEB IH SCH ×4 (01:10→20:13)
[2017-04-03] MEDS: ALBUTEROL FS 2.5 MG/3 ML VIAL.NEB NEB SCH ×4 (01:10→20:13)
[2017-04-03 04:00] VITALS: BP 128/62
[2017-04-03] MEDS: METRONIDAZOLE 500 MG TABLET PO SCH ×3 (04:49→21:04)
[2017-04-03] MEDS: SUCRALFATE 1 G/10 ML UDC GT SCH ×3 (04:49→21:03)
[2017-04-03] MEDS: GLYTROL 1,000 ML BAG GT PRN (04:58)
[2017-04-03] MEDS: VANCOMYCIN HCL 125 MG/2.5 ML ORAL.SUSP GT SCH ×3 (05:23→17:21)
[2017-04-03] MEDS: BLOOD SUGAR DIAGNOSTIC 1 EACH STRIP IN SCH ×4 (05:23→23:52)
--- NOTE | 2017-04-03 05:49 | NUR ---
PLYWOOD PATCHER NOTE CALLED DAMIAN YORK OVER THE PHONE TO GET THE CONSENT FOR DEBRIDEMENT, LEFT A MESSAGE ON ANSWERING MACHINE.
--- NOTE | 2017-04-03 06:44 | NUR ---
AIR COMPRESSOR ENGINEER NOTE PT IN BED AWAKE. NO DISTRESS OR DISCOMFORT NOTED. DENIES PAIN. REPOSITION HER Q2H, KEPT HER DRY AND CLEAN. GTF INFUSING WELL AT 45 ML/HR, 0 ML RESIDUAL NOTED. ALL NEEDS ATTENDED. SIDE RAILS UP X 3 AND CALL LIGHT WITHIN REACH. WILL ENDORSE TO DAY SHIFT NURSE FOR CONTINUE TO CARE.
[2017-04-03] MEDS: ACETYLCYSTEINE 10% SOLN 400 MG/4 ML VIAL NEB SCH ×2 (07:40→20:13)
[2017-04-03 07:50] LABS: BASOPHILS % (AUTO) 0.5 % (0.0-2.0); EOSINOPHILS # (AUTO) 0.1 /CMM (0.0-0.7); EOSINOPHILS % (AUTO) 1.5 % (0.0-6.0); HEMATOCRIT 28 % (33-45); HEMOGLOBIN 9.3 g/dL (11.5-14.8); LYMPHOCYTES # (AUTO) 1.2 /CMM (0.8-4.8); LYMPHOCYTES % (AUTO) 14.7 % (20.0-44.0); MEAN CORPUSCULAR HEMOGLOBIN 30 PG (26.0-33.0); MEAN CORPUSCULAR HGB CONC 33 g/dl (31.0-36.0); MEAN CORPUSCULAR VOLUME 91 fL (82-100); MONOCYTES # (AUTO) 0.4 /CMM (0.1-1.30); MONOCYTES % (AUTO) 4.8 % (2.0-12.0); NEUTROPHILS # (AUTO) 6.6 /CMM (1.8-8.9); NEUTROPHILS % (AUTO) 78.5 % (43.0-81.0); PLATELET COUNT (AUTO) 399 /CMM (150-450); RDW COEFFICIENT OF VARIATION 16.1 (11.5-15.0); RED BLOOD CELL COUNT(AUTO) 3.14 MIL/uL (4.0-5.2); WHITE BLOOD COUNT (AUTO) 8.4 K/uL (4.3-11.0)
[2017-04-03 08:00] VITALS: BP 122/60
[2017-04-03 08:00] LABS: CALCIUM, SERUM 8.2 mg/dL (8.5-10.1); CREATININE 0.4 mg/dL (0.6-1.3); POTASSIUM 3.6 mmol/L (3.5-5.1)
--- NOTE | 2017-04-03 08:00 | NUR ---
PT NIRALI YORK CALLED BACK FOR CONSENT OF WOUND DEBRIDEMENT. ISA ENRIQUEZ WITNESSED AND VERIFIED CALL BACK. CONSENT IN CHART.
[2017-04-03] MEDS: FERROUS SULFATE UDC 300 MG/5 ML UDC GT SCH ×3 (09:19→17:16)
[2017-04-03] MEDS: MULTIVIT, IRON, MIN NO. 8, FA 1 TAB GT SCH (09:20)
[2017-04-03] MEDS: ZINC SULFATE 220 MG CAPSULE GT SCH (09:20)
[2017-04-03] MEDS: MEMANTINE HCL 5 MG TABLET GT SCH (09:20)
[2017-04-03] MEDS: METOPROLOL TARTRATE 25 MG TABLET GT SCH ×2 (09:20→17:16)
[2017-04-03] MEDS: FAMOTIDINE (20 MG) 20 MG TABLET GT SCH (09:20)
[2017-04-03] MEDS: DOCUSATE SODIUM LIQ 100 MG/10 ML UDC GT SCH (09:20)
[2017-04-03] MEDS: MEROPENEM 500 MG in IV NS 0.9% 50 ML IV SCH ×2 (09:21→21:05)
[2017-04-03] MEDS: PANTOPRAZOLE 40 MG VIAL IV SCH ×2 (09:21→17:16)
[2017-04-03] MEDS: ASCORBIC ACID 500 MG TABLET GT SCH (09:21)
[2017-04-03] MEDS: LOSARTAN POTASSIUM 50 MG TABLET GT SCH (09:21)
[2017-04-03] MEDS: PROSOURCE / PROSTAT (PYXIS) 30 ML UDC GT SCH ×2 (09:41→17:16)
[2017-04-03] MEDS: LACTOBACILLUS RHAMNOSUS GG 1 EACH CAP.SPRINK PO SCH ×2 (09:41→17:15)
[2017-04-03] MEDS ORDERED: FEE PK DOSING 1 MIN EA MC ONE (09:48)
--- NOTE | 2017-04-03 10:25 | NUR ---
WOUND CARE CONSULT: PT PRESENTS WITH UNSTAGEABLE ULCERS TO BACK AND LEFT BUTTOCK WELL FRAGILE SCAR TO SACRUM AND LEFT HEEL ESCHAR, ALL PRESENT ON ADMISSION. PT ON FIRST STEP MATTRESS. CURRENT VIN SCORE IS 10. FEET NOTED TO HAVE DUSKY COLOR. ALL SKIN PROTECTION RECOMMENDATION MEASURES DISCUSSED WITH NURSING STAFF. DEFER TO PLASTICS TEAM FOR WOUND TREATMENT PLAN. PT INCONTINENT OF BLACK STOOL. WILL SEE PRN. LAM IN AGREEMENT WITH PLAN OF CARE. Addendum: 04/03/17 at 1029 by SERVANDO DAVISON WNDNU Amended: Links added.
[2017-04-03] MEDS ORDERED: Z GUARD REMEDY 2 OZ OINT TP PRN (10:30)
[2017-04-03] MEDS: Z GUARD REMEDY 2 OZ OINT TP SCH (11:19)
[2017-04-03 12:00] VITALS: BP_SYST 101; BP_SYST 127; BP_DIAS 51; BP_DIAS 57
[2017-04-03] MEDS: VANCOMYCIN 1 GM in IV D5W 250 ML IV SCH (14:40)
[2017-04-03] MEDS: HYDROCODONE/APAP 5/325MG 1 EACH TABLET PO PRN (15:16)
--- NOTE | 2017-04-03 15:16 | NUR ---
DR. GRIFFIN @ BEDSIDE PROVIDING WOUND DEBRIDEMENT WILL MEDICATE PT BEFORE HAND.
[2017-04-03 16:00] VITALS: BP 127/57
[2017-04-03] MEDS: INSULIN REGULAR, HUMAN 100 UNIT/ML 3 ML VIAL SQ PRN (17:30)
[2017-04-03 20:00] VITALS: BP 104/58
--- NOTE | 2017-04-03 20:00 | NUR ---
FORTUNE COOKIE MAKER NOTE PT IN BED AWAKE. NON VERBAL A/O X 1, ON TELE SR 80. NO SOB, NO DISTRESS OR DISCOMFORT NOTED. DENIES PAIN. ON TRACH/VENT TOLERATING THE SETTINGS WELL. SUCTION HER NEEDED, THIN WHITISH SECRETIONS NOTED. F/C INTACT AND PATENT DRAINING YELLOWISH COLOR URINE. DECUB DRESSINGS I/C/D. GTF GLYTROL INFUSING WELL AT 45 ML/HR, 0 ML RESIDUAL NOTED. RT HAND WITH #22 G NS TKO, NO S/S OF INFILTRATION NOTED. REPOSITION HER Q2H. KEPT HER DRY AND CLEAN. ALL NEEDS ATTENDED. VSS. SIDE RIALS UP X 2 AND CALL LIGHT WITHIN REACH. CONTINUE TO MONITOR HER.
[2017-04-03] MEDS: MAGNESIUM OXIDE 400 MG TABLET GT SCH (21:06)
[2017-04-03] MEDS: INSULIN DETEMIR 100 UNIT/ML CARTRIDGE SQ SCH (22:00)
--- NOTE | 2017-04-03 22:54 | NUR ---
SMOCKER NOTE BS 104, NO INSULIN COVERAGE GIVEN. PT ON GLYTROL 45 ML/HR.
--- NOTE | 2017-04-03 23:00 | NUR ---
REAL ESTATE ASSOCIATE NOTE PT ON TELE SB HR 48. CHECKED THE PT NO DISTRESS NOTED. PT DENIES ANY PAIN OR DISCOMFORT. REPOSITION HER FOR SKIN MANAGEMENT.
[2017-04-04] VITALS (7 sets, daily range): BP systolic 98–115; BP diastolic 53–67
[2017-04-04] MEDS: VANCOMYCIN HCL 125 MG/2.5 ML ORAL.SUSP GT SCH ×5 (00:10→23:08)
[2017-04-04] MEDS: ALBUTEROL FS 2.5 MG/3 ML VIAL.NEB NEB SCH ×4 (01:45→20:14)
[2017-04-04] MEDS: IPRATROPIUM NEB FS 0.5 MG/2.5 ML AMPUL.NEB IH SCH ×4 (01:45→20:14)
[2017-04-04] MEDS: SUCRALFATE 1 G/10 ML UDC GT SCH ×3 (05:19→21:24)
[2017-04-04] MEDS: BLOOD SUGAR DIAGNOSTIC 1 EACH STRIP IN SCH ×4 (05:19→23:13)
[2017-04-04] MEDS: METRONIDAZOLE 500 MG TABLET PO SCH ×3 (05:19→21:24)
[2017-04-04] MEDS: GLYTROL 1,000 ML BAG GT PRN (05:23)
--- NOTE | 2017-04-04 06:23 | NUR ---
JUNIOR ORACLE DBA NOTE PT IN BED AWAKE. NO DISTRESS OR DISCOMFORT NOTED. DENIES PAIN. ON TELE SB 58. KEPT HER DRY AND CLEAN. REPOSITION HER Q2H. WOUND DRESSING DONE. ALL NEEDS ATTENDED. SIDE RAILS UP X 2 AND CALL LIGHT WITHIN REACH. WILL ENDORSE TO DAY SHIFT NURSE FOR CONTINUE TO CARE.
--- NOTE | 2017-04-04 07:05 | NUR ---
RN INITIAL NOTE PATIENT RECEIVED IN BED, RESTING. NO S/S OF PAIN OR DISCOMFORT. PATIENT IS SINUS RHYTHM ON TELE MONITOR. ALERT, ABLE TO MOUTH WORDS. PATIENT HAS TRACH: PORTEX #7 SATING WELL ON VENT SETTINGS. DOTY CATHETER DRAINING TO GRAVITY. G-TUBE FLUSHED, PATENT. PLACEMENT VERIFIED. TOLERATING FEEDING WELL. IV SITE FLUSHED, PATENT. SKIN IS WARM AND DRY TO TOUCH. SAFETY PRECAUTIONS IMPLEMENTED, BED IN LOCKED POSITION WITH TWO SIDE RAILS UP. WILL CONTINUE TO MONITOR CLOSELY.
[2017-04-04] MEDS: ACETYLCYSTEINE 10% SOLN 400 MG/4 ML VIAL NEB SCH ×2 (07:32→20:14)
[2017-04-04 08:07] LABS: CALCIUM, SERUM 8.4 mg/dL (8.5-10.1); CREATININE 0.3 mg/dL (0.6-1.3); POTASSIUM 4.1 mmol/L (3.5-5.1)
[2017-04-04] MEDS: PANTOPRAZOLE 40 MG VIAL IV SCH ×2 (08:14→18:08)
[2017-04-04] MEDS: DOCUSATE SODIUM LIQ 100 MG/10 ML UDC GT SCH (08:14)
[2017-04-04] MEDS: MEROPENEM 500 MG in IV NS 0.9% 50 ML IV SCH (08:14)
[2017-04-04] MEDS: FERROUS SULFATE UDC 300 MG/5 ML UDC GT SCH ×3 (08:14→18:08)
[2017-04-04] MEDS: LACTOBACILLUS RHAMNOSUS GG 1 EACH CAP.SPRINK PO SCH ×2 (08:15→18:08)
[2017-04-04] MEDS: MULTIVIT, IRON, MIN NO. 8, FA 1 TAB GT SCH (08:15)
[2017-04-04] MEDS: MEMANTINE HCL 5 MG TABLET GT SCH (08:15)
[2017-04-04] MEDS: FAMOTIDINE (20 MG) 20 MG TABLET GT SCH (08:15)
[2017-04-04] MEDS: HYDROCODONE/APAP 5/325MG 1 EACH TABLET PO PRN (08:15)
[2017-04-04] MEDS: ZINC SULFATE 220 MG CAPSULE GT SCH (08:15)
[2017-04-04] MEDS: ASCORBIC ACID 500 MG TABLET GT SCH (08:15)
[2017-04-04] MEDS: LOSARTAN POTASSIUM 50 MG TABLET GT SCH (08:24)
[2017-04-04] MEDS: METOPROLOL TARTRATE 25 MG TABLET GT SCH ×2 (08:25→17:00)
[2017-04-04] MEDS: VANCOMYCIN 1 GM in IV D5W 250 ML IV SCH (09:52)
[2017-04-04] MEDS: Z GUARD REMEDY 2 OZ OINT TP SCH (09:52)
[2017-04-04] MEDS: PROSOURCE / PROSTAT (PYXIS) 30 ML UDC GT SCH ×2 (09:52→18:09)
[2017-04-04] MEDS: INSULIN REGULAR, HUMAN 100 UNIT/ML 3 ML VIAL SQ PRN (13:12)
[2017-04-04] MEDS: DAKINS QUARTER STRENGTH (0.125%) 480 ML BOTTLE TOP SCH (13:30)
--- NOTE | 2017-04-04 19:53 | NUR ---
OSTEOLOGY TEACHER NOTE PT IN BED AWAKE. A/O X 1, ON VENT /TRACH TOLERATING THE SETTINGS WELL. HOB ELEVATED. NO DISTRESS OR DISCOMFORT NOTED. DENIES PAIN. LT HAND IV SITE INTACT AND PATENT, NO S/S OF INFILTRATION NOTED. GTF GLYTROL INFUSING WELL AT 60 ML/HR, 0 ML RESIDUAL NOTED. REPOSITION HER FOR SKIN MANAGEMENT. DECUB DRESSINGS I/C/D. SUCTIONED HER FREQUENTLY MOD WHITISH THIN SECRETIONS NOTED. SIDE RAILS UP X 3 AND CALL LIGHT WITHIN REACH. VSS. CONTINUE TO MONITOR HER. Addendum: 04/04/17 at 8 by ARIANE REDMOND RN ON TELE SR HR 90.
[2017-04-04] MEDS ORDERED: VANCOMYCIN 0.75 GM in IV D5W 250 ML IV SCH (20:00)
[2017-04-04] MEDS: MEROPENEM 1 G in IV NS 0.9% 100 ML IV SCH (21:24)
[2017-04-04] MEDS: MAGNESIUM OXIDE 400 MG TABLET GT SCH (21:24)
[2017-04-04] MEDS: INSULIN DETEMIR 100 UNIT/ML CARTRIDGE SQ SCH (23:12)
[2017-04-05] VITALS: BP 120/65
[2017-04-05] MEDS: ALBUTEROL FS 2.5 MG/3 ML VIAL.NEB NEB SCH ×4 (01:15→19:52)
[2017-04-05] MEDS: IPRATROPIUM NEB FS 0.5 MG/2.5 ML AMPUL.NEB IH SCH ×4 (01:15→19:52)
[2017-04-05] MEDS: GLYTROL 1,000 ML BAG GT SCH ×2 (02:07→16:02)
[2017-04-05 04:00] VITALS: BP 117/68
[2017-04-05] MEDS: METRONIDAZOLE 500 MG TABLET PO SCH ×3 (05:08→21:19)
[2017-04-05] MEDS: VANCOMYCIN HCL 125 MG/2.5 ML ORAL.SUSP GT SCH ×4 (05:08→23:59)
[2017-04-05] MEDS: SUCRALFATE 1 G/10 ML UDC GT SCH ×3 (05:08→21:19)
[2017-04-05] MEDS: BLOOD SUGAR DIAGNOSTIC 1 EACH STRIP IN SCH ×3 (05:27→17:04)
--- NOTE | 2017-04-05 06:51 | NUR ---
SENIOR ENGINEER NOTE PT IN BED AWAKE. NO DISTRESS OR DISCOMFORT NOTED. DENIES PAIN. REPOSITION HER Q2H, KEPT HER DRY AND CLEAN. GTF INFUSING WELL AT 60 ML/HR, 0 ML RESIDUAL NOTED. ALL NEEDS ATTENDED. SIDE RAILS UP X 3 AND CALL LIGHT WITHIN REACH. WILL ENDORSE TO DAY SHIFT NURSE FOR CONTINUE TO CARE.
--- NOTE | 2017-04-05 07:15 | NUR ---
RN NOTES PT RECV'D FROM NOC RN. OBTUNDED. AWAKE. SPECIALTY BED. VENT TRACH PORTEX #7, AC 12, TV 50, FIO2 10%, PEEP 5. NO APPARENT DISTRESS. SR TELE. DOTY DRAINING SHARITA CLEAR ADEQUATE AMT URINE. GLYTROL TF 60 ML HR. #[id number]. BED IN LOW LOCKED POSITION. SIDE RAILS UP X 3. HOB ELEVATED. WILL CONT TO MONITOR CLOSELY.
[2017-04-05] MEDS: ACETYLCYSTEINE 10% SOLN 400 MG/4 ML VIAL NEB SCH ×2 (07:30→19:52)
[2017-04-05 07:54] LABS: CALCIUM, SERUM 8.4 mg/dL (8.5-10.1); CREATININE 0.4 mg/dL (0.6-1.3); POTASSIUM 4.4 mmol/L (3.5-5.1)
[2017-04-05 08:00] VITALS: BP 110/71
[2017-04-05] MEDS: Z GUARD REMEDY 2 OZ OINT TP SCH (09:00)
[2017-04-05] MEDS: ASCORBIC ACID 500 MG TABLET GT SCH (09:53)
[2017-04-05] MEDS: ZINC SULFATE 220 MG CAPSULE GT SCH (09:53)
[2017-04-05] MEDS: MEMANTINE HCL 5 MG TABLET GT SCH (09:53)
[2017-04-05] MEDS: FAMOTIDINE (20 MG) 20 MG TABLET GT SCH (09:54)
[2017-04-05] MEDS: PANTOPRAZOLE 40 MG VIAL IV SCH ×2 (09:54→17:24)
[2017-04-05] MEDS: LOSARTAN POTASSIUM 50 MG TABLET GT SCH (09:54)
[2017-04-05] MEDS: LACTOBACILLUS RHAMNOSUS GG 1 EACH CAP.SPRINK PO SCH ×2 (09:54→17:25)
[2017-04-05] MEDS: MULTIVIT, IRON, MIN NO. 8, FA 1 TAB GT SCH (09:54)
[2017-04-05] MEDS: METOPROLOL TARTRATE 25 MG TABLET GT SCH ×2 (09:54→17:26)
[2017-04-05] MEDS: DOCUSATE SODIUM LIQ 100 MG/10 ML UDC GT SCH (09:54)
[2017-04-05] MEDS: DAKINS QUARTER STRENGTH (0.125%) 480 ML BOTTLE TOP SCH (09:55)
[2017-04-05] MEDS: FERROUS SULFATE UDC 300 MG/5 ML UDC GT SCH ×3 (09:55→17:24)
[2017-04-05] MEDS: PROSOURCE / PROSTAT (PYXIS) 30 ML UDC GT SCH ×2 (09:55→17:25)
[2017-04-05] MEDS: MEROPENEM 1 G in IV NS 0.9% 100 ML IV SCH ×2 (09:59→21:19)
[2017-04-05 12:00] VITALS: BP 100/68
[2017-04-05] MEDS: HYDROCODONE/APAP 5/325MG 1 EACH TABLET PO PRN (13:32)
[2017-04-05 16:00] VITALS: BP 108/74
[2017-04-05] MEDS: IV NS 0.9% 250 ML IV PRN (16:01)
[2017-04-05] MEDS ORDERED: HALOPERIDOL LACTATE INJ 5 MG/ML VIAL IM ONE (17:00)
--- NOTE | 2017-04-05 18:00 | NUR ---
RN NOTES LATE ENTRY CLOSING NOTE: PT SLEEPING. HOB ELEVATED. REGULAR RESP. VENT TRACH. 100% O2 SATS. SR 92 TELE. F/C PATENT YELLOW URINE. GLYCOTROL RUNNING. NS RH 20G TKO. SPECILATY MATRESS. CDIFF PRECAUTIONS IN PLACE. BED IN LOW LOCKED POSITION. WILL CONT TO MONITOR CLOSELY.
--- NOTE | 2017-04-05 19:30 | NUR ---
RN INITIAL NOTE RECEIVED PT IN NO ACUTE DISTRESS IN BED. PT IS A/O X 1, BUT CAN MOUTH WORDS. PT IS ON MECHANICAL VENT VIA TRACH. TRACH SITE IS CLEAN DRY AND INTACT. PT TOLERATING VENT SETTING WELL. PT NOT C/O ANY SOB, DIFFICULTY BREATHING OR PAIN AT THIS TIME. PT HAS GTUBE THAT IS CLEAN DRY INTACT AND PATENT WITH FREE WATER FLUSH. PT HAS F/C THAT IS CLEAN DRY INTACT AND PATENT WITH YELLOW URINE DRAINING. PT HAS RIGHT HAND 20G THAT IS CLEAN DRY INTACT AND PATENT WITH SALINE FLUSH. BED IN LOW LOCK POSITION WITH RAILS UP X 2. CALL LIGHT WITHIN REACH AND ALL SAFETY MEASURES ENSURED AND CARRIED OUT.
[2017-04-05 20:00] VITALS: BP 126/59
[2017-04-05] MEDS: MAGNESIUM OXIDE 400 MG TABLET GT SCH (21:19)
[2017-04-05] MEDS: INSULIN DETEMIR 100 UNIT/ML CARTRIDGE SQ SCH (21:25)
[2017-04-06] VITALS (7 sets, daily range): BP systolic 101–123; BP diastolic 41–73
[2017-04-06] MEDS: BLOOD SUGAR DIAGNOSTIC 1 EACH STRIP IN SCH ×4 (00:03→17:31)
[2017-04-06] MEDS: ALBUTEROL FS 2.5 MG/3 ML VIAL.NEB NEB SCH ×4 (01:33→20:49)
[2017-04-06] MEDS: IPRATROPIUM NEB FS 0.5 MG/2.5 ML AMPUL.NEB IH SCH ×4 (01:33→20:49)
[2017-04-06] MEDS: METRONIDAZOLE 500 MG TABLET PO SCH ×3 (05:21→22:05)
[2017-04-06] MEDS: VANCOMYCIN HCL 125 MG/2.5 ML ORAL.SUSP GT SCH ×3 (05:21→17:31)
[2017-04-06] MEDS: SUCRALFATE 1 G/10 ML UDC GT SCH ×3 (05:21→22:05)
--- NOTE | 2017-04-06 06:47 | NUR ---
RN CLOSING NOTE PT REMAINS IN NO ACUTE DISTRESS IN BED. PT DID NOT HAVE ANY SIGNIFICANT CHANGE IN CONDITION DURING SHIFT. PT TOLERATED VENT SETTING WELL WITH O2 SAT @ 100%. PT HAD ONE BOWEL MOVEMENT THAT WAS SMALL BUT FORMED. ALL NEEDS MET ALL ORDERS CARRIED OUT. WILL ENDORSE CARE TO AM RN FOR CONTINUITY OF CARE.
[2017-04-06] MEDS: HYDROCODONE/APAP 5/325MG 1 EACH TABLET PO PRN (06:54)
--- NOTE | 2017-04-06 07:10 | NUR ---
RECNiranjan'D REPORT FROM NOC RN. PT SLEEPING. HOB ELEVATED. REGULAR RESP. VENT TRACH. 100% O2 SATS. SR 95 TELE. F/C PATENT YELLOW URINE. GLYCOTROL RUNNING. NS RH 20G TKO. SPECILATY MATRESS. BED IN LOW LOCKED POSITION. WILL CONT TO MONITOR CLOSELY. CDIFF PRECAUTIONS IN PLACE.
[2017-04-06 07:17] LABS: BASOPHILS % (AUTO) 0.3 % (0.0-2.0); EOSINOPHILS # (AUTO) 0.3 /CMM (0.0-0.7); EOSINOPHILS % (AUTO) 3.1 % (0.0-6.0); HEMATOCRIT 28 % (33-45); LYMPHOCYTES # (AUTO) 1.2 /CMM (0.8-4.8); LYMPHOCYTES % (AUTO) 13.2 % (20.0-44.0); MEAN CORPUSCULAR HEMOGLOBIN 29 PG (26.0-33.0); MEAN CORPUSCULAR HGB CONC 32 g/dl (31.0-36.0); MEAN CORPUSCULAR VOLUME 91 fL (82-100); MONOCYTES # (AUTO) 0.4 /CMM (0.1-1.30); MONOCYTES % (AUTO) 4.7 % (2.0-12.0); NEUTROPHILS # (AUTO) 6.9 /CMM (1.8-8.9); NEUTROPHILS % (AUTO) 78.7 % (43.0-81.0); PLATELET COUNT (AUTO) 478 /CMM (150-450); RDW COEFFICIENT OF VARIATION 15.9 (11.5-15.0); RED BLOOD CELL COUNT(AUTO) 3.12 MIL/uL (4.0-5.2); WHITE BLOOD COUNT (AUTO) 8.7 K/uL (4.3-11.0)
[2017-04-06] MEDS: ACETYLCYSTEINE 10% SOLN 400 MG/4 ML VIAL NEB SCH ×2 (07:19→20:48)
[2017-04-06 07:21] LABS: CALCIUM, SERUM 8.3 mg/dL (8.5-10.1); CREATININE 0.4 mg/dL (0.6-1.3); POTASSIUM 4.2 mmol/L (3.5-5.1)
[2017-04-06] MEDS: ZINC SULFATE 220 MG CAPSULE GT SCH (09:05)
[2017-04-06] MEDS: ASCORBIC ACID 500 MG TABLET GT SCH (09:05)
[2017-04-06] MEDS: FERROUS SULFATE UDC 300 MG/5 ML UDC GT SCH ×3 (09:05→17:31)
[2017-04-06] MEDS: PANTOPRAZOLE 40 MG VIAL IV SCH ×2 (09:05→17:31)
[2017-04-06] MEDS: MEMANTINE HCL 5 MG TABLET GT SCH (09:05)
[2017-04-06] MEDS: LACTOBACILLUS RHAMNOSUS GG 1 EACH CAP.SPRINK PO SCH ×2 (09:05→17:31)
[2017-04-06] MEDS: DOCUSATE SODIUM LIQ 100 MG/10 ML UDC GT SCH (09:05)
[2017-04-06] MEDS: FAMOTIDINE (20 MG) 20 MG TABLET GT SCH (09:06)
[2017-04-06] MEDS: METOPROLOL TARTRATE 25 MG TABLET GT SCH ×2 (09:09→17:31)
[2017-04-06] MEDS: MEROPENEM 1 G in IV NS 0.9% 100 ML IV SCH ×2 (09:10→22:05)
[2017-04-06] MEDS: PROSOURCE / PROSTAT (PYXIS) 30 ML UDC GT SCH ×2 (09:10→17:31)
[2017-04-06] MEDS: LOSARTAN POTASSIUM 50 MG TABLET GT SCH (09:10)
[2017-04-06] MEDS: Z GUARD REMEDY 2 OZ OINT TP SCH (09:10)
[2017-04-06] MEDS: MULTIVIT, IRON, MIN NO. 8, FA 1 TAB GT SCH (09:10)
[2017-04-06] MEDS: DAKINS QUARTER STRENGTH (0.125%) 480 ML BOTTLE TOP SCH (09:11)
[2017-04-06] MEDS: INSULIN REGULAR, HUMAN 100 UNIT/ML 3 ML VIAL SQ PRN (17:35)
--- NOTE | 2017-04-06 17:53 | NUR ---
RN CLOSING NOTE HOB ELEVATED. REGULAR RESP. VENT TRACH. 100% O2 SATS. SR 77 TELE. F/C PATENT YELLOW URINE 1050ML. GLYCOTROL RUNNING. NS RH 20G TKO. SPECILATY MATRESS. BED IN LOW LOCKED POSITION. WILL CONT TO MONITOR CLOSELY. CDIFF PRECAUTIONS IN PLACE. SMALL BM TODAY. BLOOD SUGAR 167 COVERED W/ 3 UNITS. AFEBRILE. NO RESIDUALS GT. WILL ENDORSE TO NOC ZOE.
[2017-04-06] MEDS: INSULIN DETEMIR 100 UNIT/ML CARTRIDGE SQ SCH (22:00)
[2017-04-06] MEDS: MAGNESIUM OXIDE 400 MG TABLET GT SCH (22:05)
[2017-04-07] VITALS: BP 96/41
[2017-04-07] MEDS: VANCOMYCIN HCL 125 MG/2.5 ML ORAL.SUSP GT SCH ×5 (00:18→23:04)
[2017-04-07] MEDS: BLOOD SUGAR DIAGNOSTIC 1 EACH STRIP IN SCH ×5 (00:18→23:03)
[2017-04-07] MEDS: IPRATROPIUM NEB FS 0.5 MG/2.5 ML AMPUL.NEB IH SCH ×4 (02:14→20:03)
[2017-04-07] MEDS: ALBUTEROL FS 2.5 MG/3 ML VIAL.NEB NEB SCH ×4 (02:14→20:03)
[2017-04-07 04:00] VITALS: BP 138/57
[2017-04-07] MEDS: METRONIDAZOLE 500 MG TABLET PO SCH ×3 (05:22→21:15)
[2017-04-07] MEDS: SUCRALFATE 1 G/10 ML UDC GT SCH ×3 (05:22→21:15)
[2017-04-07] MEDS: INSULIN REGULAR, HUMAN 100 UNIT/ML 3 ML VIAL SQ PRN ×3 (05:26→17:58)
--- NOTE | 2017-04-07 07:13 | NUR ---
CASHIER OFFICE INITIAL NOTE RECEIVED PT AWAKE IN BED IN NO ACUTE SIGNS OF DISTRESS. A/O X 1. MOUTH WORDS BUT INCOMPREHENSIBLE. NO SIGNS OF PAIN OR DISCOMFORTS AT THIS TIME. ON MECHANICAL VENT VIA TRACH, TOLERATING SETTINGS WELL WITH NO SOB. PT HAS G-TUBE INTACT AND PATENT WITH GLYTROL @60 ML/HR, TOLERATING WELL. ASPIRATION PRECAUTIONS MAINTAINED. DOTY IN PLACED AND PATENT WITH CLEAR YELLOW URINE DRAINING TO URINARY BAG. PT HAS RIGHT WRIST G#20 AND LFA G#20 PIV'S, BOTH INTACT AND PATENT. BED IN LOW AND LOCKED POSITION WITH RAILS UP X 2. CALL LIGHT WITHIN REACH. ALL SAFETY MEASURES IN PLACED. WILL CONTINUE TO MONITOR PT ACCORDINGLY.
[2017-04-07 07:57] LABS: CALCIUM, SERUM 8.3 mg/dL (8.5-10.1); CREATININE 0.4 mg/dL (0.6-1.3); POTASSIUM 4.1 mmol/L (3.5-5.1)
[2017-04-07 08:00] VITALS: BP 102/63
[2017-04-07] MEDS: ACETYLCYSTEINE 10% SOLN 400 MG/4 ML VIAL NEB SCH ×2 (08:10→20:03)
[2017-04-07] MEDS: MEROPENEM 1 G in IV NS 0.9% 100 ML IV SCH ×2 (09:50→21:15)
[2017-04-07] MEDS: FERROUS SULFATE UDC 300 MG/5 ML UDC GT SCH ×3 (09:51→17:20)
[2017-04-07] MEDS: PANTOPRAZOLE 40 MG VIAL IV SCH ×2 (09:51→17:19)
[2017-04-07] MEDS: LACTOBACILLUS RHAMNOSUS GG 1 EACH CAP.SPRINK PO SCH ×2 (09:52→17:20)
[2017-04-07] MEDS: MULTIVIT, IRON, MIN NO. 8, FA 1 TAB GT SCH (09:52)
[2017-04-07] MEDS: ASCORBIC ACID 500 MG TABLET GT SCH (09:52)
[2017-04-07] MEDS: DOCUSATE SODIUM LIQ 100 MG/10 ML UDC GT SCH (09:52)
[2017-04-07] MEDS: FAMOTIDINE (20 MG) 20 MG TABLET GT SCH (09:53)
[2017-04-07] MEDS: ZINC SULFATE 220 MG CAPSULE GT SCH (09:53)
[2017-04-07] MEDS: MEMANTINE HCL 5 MG TABLET GT SCH (09:53)
[2017-04-07] MEDS: METOPROLOL TARTRATE 25 MG TABLET GT SCH ×2 (09:55→17:19)
[2017-04-07] MEDS: LOSARTAN POTASSIUM 50 MG TABLET GT SCH (09:56)
[2017-04-07] MEDS: PROSOURCE / PROSTAT (PYXIS) 30 ML UDC GT SCH ×2 (09:56→17:19)
[2017-04-07] MEDS: Z GUARD REMEDY 2 OZ OINT TP SCH (09:56)
[2017-04-07] MEDS: DAKINS QUARTER STRENGTH (0.125%) 480 ML BOTTLE TOP SCH (09:57)
[2017-04-07 12:00] VITALS: BP 117/78
[2017-04-07 16:00] VITALS: BP_SYST 118; BP_DIAS 58; BP_DIAS 68
--- NOTE | 2017-04-07 17:40 | NUR ---
RN NOTES PATIENT PULLED OUT HER IV ACCESS ON WRIST G#20,M MINIMAL BLEEDING NOTED. APPLIED PRESSURE GAUZE. WILL CONTINUE TO MONITOR.
--- NOTE | 2017-04-07 18:44 | NUR ---
MANAGER SKILLED CLOSING NOTES PT IN BED AWAKE, A/O X 1. MOUTH WORDS AT TIMES. NO SIGNIFICANT CHANGES NOTED THROUGHOUT THE DAY. MAINTAINED ON MECHANICAL VENT VIA TRACH, TOLERATING SETTINGS WELL WITH NO SOB NOTED. G-TUBE INTACT AND PATENT WITH GLYTROL @60 ML/HR IN PROGRESS, TOLERATING WELL. ASPIRATION PRECAUTIONS MAINTAINED. DOTY IN PLACED AND PATENT WITH CLEAR YELLOW URINE DRAINING TO URINARY BAG. IV ACCESS ON LFA G#20 PIV'S INTACT AND PATENT. KEPT BED LOW AND LOCKED POSITION WITH RAILS UP X 2. CALL LIGHT WITHIN REACH. ALL SAFETY MEASURES IN PLACED. ALL DUE MEDS GIVEN ORDERED WITHOUT ADVERSE REACTIONS NOTED. WILL ENDORSED TO SATURATION EQUIPMENT OPERATOR NURSE FOR HECTOR.
--- NOTE | 2017-04-07 19:30 | NUR ---
RECORD TABULATING CLERK INITIAL NOTE PT RECEIVED RESTING IN BED. A/O X1 AND NON VERBAL BUT MOUTHS WORDS. ON [facility] VENT AND SETTINGS WELL TOLERATED. TELE- SINUS RHYTHM 85. IV IN PLACE, CLEAN, INTACT AND FLUSHING WELL. GTUBE CLEAN, FLUSHING WELL AND NO RESIDUALS NOTED. DOTY CATHETER IN PLACE AND DRAINING BY GRAVITY. BED IN LOWEST POSITION AND LOCKED IN PLACE. ISOLATION PRECAUTIONS OBSERVED. HOB ELEVATED AND ON ASPIRATION PRECAUTIONS. CALL LIGHT WITHIN REACH. WILL CONTINUE TO MONITOR.
[2017-04-07 20:00] VITALS: BP 111/59
[2017-04-07] MEDS: MAGNESIUM OXIDE 400 MG TABLET GT SCH (21:15)
[2017-04-07] MEDS: GLYTROL 1,000 ML BAG GT SCH (21:16)
[2017-04-07] MEDS: IV NS 0.9% 250 ML IV PRN (21:18)
[2017-04-07] MEDS: INSULIN DETEMIR 100 UNIT/ML CARTRIDGE SQ SCH (22:00)
[2017-04-08] VITALS: BP 112/61
[2017-04-08] MEDS: IPRATROPIUM NEB FS 0.5 MG/2.5 ML AMPUL.NEB IH SCH ×4 (01:46→20:16)
[2017-04-08] MEDS: ALBUTEROL FS 2.5 MG/3 ML VIAL.NEB NEB SCH ×4 (01:46→20:16)
[2017-04-08 04:00] VITALS: BP 125/43
[2017-04-08] MEDS: SUCRALFATE 1 G/10 ML UDC GT SCH ×3 (05:20→21:21)
[2017-04-08] MEDS: METRONIDAZOLE 500 MG TABLET PO SCH ×3 (05:21→21:22)
[2017-04-08] MEDS: VANCOMYCIN HCL 125 MG/2.5 ML ORAL.SUSP GT SCH (05:21)
[2017-04-08] MEDS: BLOOD SUGAR DIAGNOSTIC 1 EACH STRIP IN SCH ×3 (05:21→17:18)
[2017-04-08] MEDS: INSULIN REGULAR, HUMAN 100 UNIT/ML 3 ML VIAL SQ PRN ×3 (05:33→17:25)
--- NOTE | 2017-04-08 06:43 | NUR ---
AIR TRAFFIC CONTROLLER CLOSING NOTE PT REMAINED STABLE DURING SHIFT. NO ACUTE DISTRESS NOTED. VENT SETTINGS WELL TOLERATED. ALL NEEDS ATTENDED TO PROMPTLY. ALL SAFETY MEASURES IN PLACE. ISOLATION PRECAUTIONS OBSERVED. KEPT CLEAN AND DRY. REPOSITIONED Q2H. GTUBE FEEDING WELL TOLERATED THROUGHOUT THE NIGHT. WOUND TREATMENT PERFORMED ORDERED. WILL ENDORSE TO NEXT SHIFT FOR CONTINUITY OF CARE.
[2017-04-08 07:37] LABS: CALCIUM, SERUM 8.2 mg/dL (8.5-10.1); CREATININE 0.4 mg/dL (0.6-1.3); POTASSIUM 4.4 mmol/L (3.5-5.1)
[2017-04-08 08:00] VITALS: BP 106/37
[2017-04-08] MEDS: ACETYLCYSTEINE 10% SOLN 400 MG/4 ML VIAL NEB SCH ×2 (08:16→20:16)
[2017-04-08] MEDS: PROSOURCE / PROSTAT (PYXIS) 30 ML UDC GT SCH ×2 (09:00→16:05)
[2017-04-08] MEDS: LACTOBACILLUS RHAMNOSUS GG 1 EACH CAP.SPRINK PO SCH ×2 (09:00→16:05)
[2017-04-08] MEDS: DOCUSATE SODIUM LIQ 100 MG/10 ML UDC GT SCH (09:00)
[2017-04-08] MEDS: METOPROLOL TARTRATE 25 MG TABLET GT SCH ×2 (09:00→16:05)
[2017-04-08] MEDS: PANTOPRAZOLE 40 MG VIAL IV SCH ×2 (09:00→16:05)
[2017-04-08] MEDS: LOSARTAN POTASSIUM 50 MG TABLET GT SCH (09:00)
[2017-04-08] MEDS: ZINC SULFATE 220 MG CAPSULE GT SCH (09:00)
[2017-04-08] MEDS: FERROUS SULFATE UDC 300 MG/5 ML UDC GT SCH ×3 (09:00→16:05)
[2017-04-08] MEDS: MULTIVIT, IRON, MIN NO. 8, FA 1 TAB GT SCH (09:00)
[2017-04-08] MEDS: FAMOTIDINE (20 MG) 20 MG TABLET GT SCH (09:00)
[2017-04-08] MEDS: MEROPENEM 1 G in IV NS 0.9% 100 ML IV SCH ×2 (09:00→21:21)
[2017-04-08] MEDS: MEMANTINE HCL 5 MG TABLET GT SCH (09:00)
[2017-04-08] MEDS: DAKINS QUARTER STRENGTH (0.125%) 480 ML BOTTLE TOP SCH (09:02)
[2017-04-08] MEDS: Z GUARD REMEDY 2 OZ OINT TP SCH (09:13)
[2017-04-08] MEDS: ASCORBIC ACID 500 MG TABLET GT SCH (09:18)
[2017-04-08 12:00] VITALS: BP 133/58
[2017-04-08 16:00] VITALS: BP 122/71
[2017-04-08] MEDS: GLYTROL 1,000 ML BAG GT SCH ×2 (16:00→16:05)
[2017-04-08 20:00] VITALS: BP 129/39
--- NOTE | 2017-04-08 21:00 | NUR ---
No acute distress noted, but is restless
[2017-04-08] MEDS: MAGNESIUM OXIDE 400 MG TABLET GT SCH (21:21)
[2017-04-08] MEDS: INSULIN DETEMIR 100 UNIT/ML CARTRIDGE SQ SCH (21:29)
[2017-04-09] VITALS: BP 124/56
[2017-04-09] MEDS: HYDROCODONE/APAP 5/325MG 1 EACH TABLET PO PRN (01:36)
[2017-04-09] MEDS: ALBUTEROL FS 2.5 MG/3 ML VIAL.NEB NEB SCH ×4 (01:41→20:27)
[2017-04-09] MEDS: IPRATROPIUM NEB FS 0.5 MG/2.5 ML AMPUL.NEB IH SCH ×4 (01:41→20:27)
[2017-04-09 04:00] VITALS: BP 133/75
[2017-04-09] MEDS: SUCRALFATE 1 G/10 ML UDC GT SCH ×3 (04:48→22:06)
[2017-04-09] MEDS: METRONIDAZOLE 500 MG TABLET PO SCH ×3 (04:48→22:06)
[2017-04-09] MEDS: BLOOD SUGAR DIAGNOSTIC 1 EACH STRIP IN SCH ×4 (05:05→17:20)
--- NOTE | 2017-04-09 06:46 | NUR ---
no distress noted awake most of night,even after pain med given Pulled out iv restarted in lt hand after several trys
--- NOTE | 2017-04-09 07:30 | NUR ---
RN OPEN NOTES RECEIEVD REPORT FROM FIREARMS EXPERT NURSE. PATIENT IS IN BED, OBTUNDED. VENT DEPENDENT PATIENT. NO SIGNS AND SYMPTOMS OF DISTRESS. UNLABORED AND EVEN BREATHING. WILL CONTINUE TO MONITOR AND ASSESS PATIENT THROUGH OUT MY SHIFT.
[2017-04-09 08:00] VITALS: BP 113/68
[2017-04-09] MEDS: DOCUSATE SODIUM LIQ 100 MG/10 ML UDC GT SCH (09:21)
[2017-04-09] MEDS: PANTOPRAZOLE 40 MG VIAL IV SCH ×2 (09:21→17:17)
[2017-04-09] MEDS: FERROUS SULFATE UDC 300 MG/5 ML UDC GT SCH ×3 (09:21→17:17)
[2017-04-09] MEDS: PROSOURCE / PROSTAT (PYXIS) 30 ML UDC GT SCH ×2 (09:22→17:20)
[2017-04-09] MEDS: ASCORBIC ACID 500 MG TABLET GT SCH (09:22)
[2017-04-09] MEDS: MULTIVIT, IRON, MIN NO. 8, FA 1 TAB GT SCH (09:22)
[2017-04-09] MEDS: ZINC SULFATE 220 MG CAPSULE GT SCH (09:22)
[2017-04-09] MEDS: LACTOBACILLUS RHAMNOSUS GG 1 EACH CAP.SPRINK PO SCH ×2 (09:22→17:17)
[2017-04-09] MEDS: FAMOTIDINE (20 MG) 20 MG TABLET GT SCH (09:22)
[2017-04-09] MEDS: LOSARTAN POTASSIUM 50 MG TABLET GT SCH (09:22)
[2017-04-09] MEDS: MEMANTINE HCL 5 MG TABLET GT SCH (09:23)
[2017-04-09] MEDS: METOPROLOL TARTRATE 25 MG TABLET GT SCH ×2 (09:23→17:00)
[2017-04-09] MEDS: Z GUARD REMEDY 2 OZ OINT TP SCH (09:29)
[2017-04-09] MEDS: DAKINS QUARTER STRENGTH (0.125%) 480 ML BOTTLE TOP SCH (09:29)
[2017-04-09] MEDS: ACETYLCYSTEINE 10% SOLN 400 MG/4 ML VIAL NEB SCH ×2 (09:31→20:27)
[2017-04-09] MEDS: GLYTROL 1,000 ML BAG GT SCH (09:39)
--- NOTE | 2017-04-09 10:20 | NUR ---
Patient received trached on mechanical vent. Breath sounds equal bilateral. Breathing tx given as ordered and tolerated well. No adverse reactions noted. Vent plugged into red outlet and alarms set and functioning. Ambu bag at the bed side.
[2017-04-09 12:00] VITALS: BP 109/48
[2017-04-09] MEDS: INSULIN REGULAR, HUMAN 100 UNIT/ML 3 ML VIAL SQ PRN ×2 (12:14→17:37)
[2017-04-09 16:00] VITALS: BP 93/48
--- NOTE | 2017-04-09 16:50 | NUR ---
DRESSING CHANGE PER HOSPITAL PROTOCOL AND WOUND CARE INSTRUCTION
[2017-04-09] MEDS ORDERED: GLYTROL 1,000 ML BAG GT SCH (18:35)
--- NOTE | 2017-04-09 18:44 | NUR ---
WATER PROOFER CLOSING NOTES PATIENT IS IN BED WITH HER EYES CLOSED. NON VERBAL. ON MECH VENT WITH SETTINGS WELL TOLERATED AND SATURATING 99%. NO SIGNS AND SYMPTOMS OF DISTRESS OR PAIN. NON LABORED AND EVEN BREATHING. SPONTANEOUSLY OPENS EYES. TELE- SINUS RHYTHM 88. GASTRIC TUBE IS INTACT AND FLUSHING WELL. IV AITE IS INTACT AND PATENT. PATIENT IS ON ASPIRATION PRECAUTIONS. HOB @ 35 DEGREES AT THIS TIME. DOTY CATHETER IN PLACE AND DRAINING BY GRAVITY. BED IN LOW POSITION, LOCKED AND TWO SIDE RAILS ARE UP. CALL LIGHT WITHIN REACH. WILL CONTINUE TO MONITOR.
--- NOTE | 2017-04-09 18:45 | NUR ---
WILL ENDORSE TO ORDNANCE EQUIPMENT WORKER NURSE
--- NOTE | 2017-04-09 19:20 | NUR ---
SHEARING MACHINE OPERATOR INITIAL NOTE PT RECEIVED IN NO ACUTE DISTRESS. PT IS OBTUNDED A/O X1 WITH TRACH/VENT TOLERATING WELL. ON TELE WITH SR 68. LEFT HAND 22G IS CLEAN DRY AND INTACT. WILL ENSURE COMFORT AND SAFETY MEASURES DURING THE SHIFT. WILL CONTINUE TO MONITOR FOR CHANGES.
[2017-04-09 20:00] VITALS: BP 98/54
[2017-04-09] MEDS: INSULIN DETEMIR 100 UNIT/ML CARTRIDGE SQ SCH (22:07)
[2017-04-09] MEDS: MAGNESIUM OXIDE 400 MG TABLET GT SCH (22:07)
[2017-04-10] VITALS: BP 90/52
[2017-04-10] MEDS: BLOOD SUGAR DIAGNOSTIC 1 EACH STRIP IN SCH ×4 (00:41→18:35)
[2017-04-10] MEDS: IPRATROPIUM NEB FS 0.5 MG/2.5 ML AMPUL.NEB IH SCH ×4 (01:30→20:12)
[2017-04-10] MEDS: ALBUTEROL FS 2.5 MG/3 ML VIAL.NEB NEB SCH ×4 (01:31→20:12)
[2017-04-10 04:00] VITALS: BP 105/64
[2017-04-10] MEDS: METRONIDAZOLE 500 MG TABLET PO SCH ×3 (05:52→21:10)
[2017-04-10] MEDS: SUCRALFATE 1 G/10 ML UDC GT SCH ×3 (05:52→21:10)
--- NOTE | 2017-04-10 07:10 | NUR ---
RN INITIAL NOTES: REC'D PT AWAKE ON BED, A/O X1, NOT IN ANY DISTRESS. ON MECH VENT VIA TRACH, SATURATING AT 98%. ON TELEMONITOR, SR W/ HR 82 BPM. HAS PATENT & INTACT GTUBE, ON CONTINUOUS TUBE FEEDING GLYTROL 65 CC/HR INFUSING WELL, NO RESIDUAL NOTED UPON CHECKING. HAS L HAND G22, SL, FLUSHED, PATENT & INTACT W/ NO S/SX OF INFECTION/INFILTRATION NOTED. PROVIDED COMFORT & SAFETY MEASURES. BED KEPT LOW & IN LOCKED POS. CALL LIGHT PLACED W/IN REACH. WILL CONTINUE TO MONITOR AND ATTEND NEEDS.
[2017-04-10] MEDS: ACETYLCYSTEINE 10% SOLN 400 MG/4 ML VIAL NEB SCH ×2 (07:43→20:12)
[2017-04-10 08:00] VITALS: BP 112/55
[2017-04-10] MEDS: FERROUS SULFATE UDC 300 MG/5 ML UDC GT SCH ×3 (08:34→17:39)
[2017-04-10] MEDS: LACTOBACILLUS RHAMNOSUS GG 1 EACH CAP.SPRINK PO SCH ×2 (08:35→17:39)
[2017-04-10] MEDS: MULTIVIT, IRON, MIN NO. 8, FA 1 TAB GT SCH (08:35)
[2017-04-10] MEDS: METOPROLOL TARTRATE 25 MG TABLET GT SCH ×2 (08:35→17:00)
[2017-04-10] MEDS: MEMANTINE HCL 5 MG TABLET GT SCH (08:35)
[2017-04-10] MEDS: ASCORBIC ACID 500 MG TABLET GT SCH (08:35)
[2017-04-10] MEDS: ZINC SULFATE 220 MG CAPSULE GT SCH (08:35)
[2017-04-10] MEDS: LOSARTAN POTASSIUM 50 MG TABLET GT SCH (08:36)
[2017-04-10] MEDS: FAMOTIDINE (20 MG) 20 MG TABLET GT SCH (08:38)
[2017-04-10] MEDS: PROSOURCE / PROSTAT (PYXIS) 30 ML UDC GT SCH ×2 (08:38→17:39)
[2017-04-10] MEDS: DOCUSATE SODIUM LIQ 100 MG/10 ML UDC GT SCH (08:39)
[2017-04-10] MEDS: Z GUARD REMEDY 2 OZ OINT TP SCH (08:39)
[2017-04-10] MEDS: DAKINS QUARTER STRENGTH (0.125%) 480 ML BOTTLE TOP SCH (08:40)
[2017-04-10] MEDS: PANTOPRAZOLE 40 MG VIAL IV SCH ×2 (08:53→17:39)
[2017-04-10 12:00] VITALS: BP 93/48
[2017-04-10] MEDS: INSULIN REGULAR, HUMAN 100 UNIT/ML 3 ML VIAL SQ PRN ×2 (12:56→18:35)
[2017-04-10 16:00] VITALS: BP_SYST 82; BP_SYST 98; BP_DIAS 43; BP_DIAS 48
--- NOTE | 2017-04-10 18:46 | NUR ---
RN CLOSING NOTES: NO ACUTE CHANGES NOTED W/IN SHIFT. PT TOLERATED PRESCRIBED MECH VENT SETTINGS, SATURATING AT 98%. ON TELEMONITOR, STILL SR. PEG KEPT PATENT & INTACT, CONTINUOUS TUBE FEEDING GLYTROL 65 CC/HR TOLERATED WELL, NO RESIDUAL W/IN SHIFT. PT FOR DC TO [facility], REPORT GIVEN TO ZOE WILLETT. 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 IV ACCESS REMOVED, PRESSURE DRESSING APPLIED, NO BLEEDING NOTED. WOUND CARE PROVIDED PRIOR TO DC. PT KEPT WELL RESTED. BED KEPT LOW & IN LOCKED POS. CALL LIGHT PLACED W/IN REACH. WILL ENDORSE TO PM RN FOR HECTOR AND FACILITATE DC. ALL DC PAPERWORKS DONE.
--- NOTE | 2017-04-10 19:40 | NUR ---
DIRECTOR OF COLLECTIONS INITIAL NOTE PT RECEIVED IN BED. A/O X1 AND CAN MOUTH WORDS. [facility] WITH [facility] WELL TOLERATED AND SATURATING 94%. TELE- SINUS RHYTHM 98. GTUBE IN PLACE, CLEAN AND FLUSHING WELL WITH NO RESIDUALS NOTED. DOTY CATHETER IN PLACE AND DRAINING BY GRAVITY. NO IV ACCESS AT THIS TIME D/T PENDING DISCHARGE FROM THE HOSPITAL. CURRENT BP 106/58. ISOLATION PRECAUTIONS OBSERVED. WILL CONTINUE TO MONITOR.
[2017-04-10 20:00] VITALS: BP 106/58
[2017-04-10] MEDS: MAGNESIUM OXIDE 400 MG TABLET GT SCH (21:11)
--- NOTE | 2017-04-10 22:00 | NUR ---
QUICKBOOKS BOOKKEEPER NOTE PT PICKED UP BY MED RESPONSE. PT TRANSFERRED SAFELY TO [facility]. VENT SETTINGS WELL TOLERATED. NO ACUTE DISTRESS NOTED. ISOLATION PRECAUTIONS OBSERVED. SPOKE WITH DEBRA ENRIQUEZ FROM [facility] TO CONFIRM TRANSFER. VS WNL.
== END 2017-04-10 23:00 | DRG 853 ==
LOC: ER 02:28 → TELE1 04:37
PROVIDERS: ADMIT Internal Medicine; ATTEND Internal Medicine
PROC: 5A1955Z Respiratory Ventilation, Greater than 96 Consecutive Hours (ICD-10-PCS; principal; 2017-04-01)
PROC: 0KBP0ZZ Excision of Left Hip Muscle, Open Approach (ICD-10-PCS; 2017-04-03)
PROC: 0KBG0ZZ Excision of Left Trunk Muscle, Open Approach (ICD-10-PCS; 2017-04-03)
DX: A41.9 Sepsis, unspecified organism (principal); N17.0 Acute kidney failure with tubular necrosis; J15.6 Pneumonia due to other Gram-negative bacteria; J15.9 Unspecified bacterial pneumonia; Z99.11 Dependence on respirator [ventilator] status; J90 Pleural effusion, not elsewhere classified; A04.72 Enterocolitis due to Clostridium difficile, not specified as recurrent; J96.11 Chronic respiratory failure with hypoxia; R53.2 Functional quadriplegia; L89.124 Pressure ulcer of left upper back, stage 4; L89.324 Pressure ulcer of left buttock, stage 4; J44.0 Chronic obstructive pulmonary disease with (acute) lower respiratory infection; E87.1 Hypo-osmolality and hyponatremia; N39.0 Urinary tract infection, site not specified; K92.2 Gastrointestinal hemorrhage, unspecified; L89.620 Pressure ulcer of left heel, unstageable; D64.9 Anemia, unspecified; D75.89 Other specified diseases of blood and blood-forming organs; E11.9 Type 2 diabetes mellitus without complications; R65.20 Severe sepsis without septic shock; E78.5 Hyperlipidemia, unspecified; E87.6 Hypokalemia; I10 Essential (primary) hypertension; I25.10 Atherosclerotic heart disease of native coronary artery without angina pectoris; G30.9 Alzheimer's disease, unspecified; R13.10 Dysphagia, unspecified; Z79.899 Other long term (current) drug therapy; Z86.73 Personal history of transient ischemic attack (TIA), and cerebral infarction without residual deficits; Z87.440 Personal history of urinary (tract) infections; Z93.1 Gastrostomy status; F09 Unspecified mental disorder due to known physiological condition; L98.8 Other specified disorders of the skin and subcutaneous tissue; L89.611 Pressure ulcer of right heel, stage 1; B96.89 Other specified bacterial agents as the cause of diseases classified elsewhere; F02.80 Dementia in other diseases classified elsewhere, unspecified severity, without behavioral disturbance, psychotic disturbance, mood disturbance, and anxiety
CPT/HCPCS: 31720; 36415; 71010-TC; 80048-TC; 80076-TC; 80202-TC; 81000-TC; 82272-TC; 82962-TC; 83605-TC; 83735-TC; 83880; 84484-TC; 85025-TC; 85730-TC; 86850-TC; 87040-TC; 87081-TC; 87086-TC; 87186-TC; 94002-TC; 94003-TC; 94760-TC; 94762-TC; 99082-TC; A4216; A4606; A6253; A6402; A6403; C9113; J1630; J1815; J1956; J2020; J2185; J3370; J3490; J7030; J7040; J7050; J7060; Z7610

== ENCOUNTER 2018-04-06 22:26 | Inpatient (IN) | payer MEDICARE, OTHER ==
[~2018-04-06] VITALS: Ht 165.1 cm; Wt 69.9 kg
[~2018-04-06 22:26] MED LIST changes: +ACET-73 PO; -AMIN30LI4 GT; +AMIN887L7 GT; +CRAN3875 GT; +HYDR-552 PO; -INSU100I19 SQ; +INSU300I SQ; +IPRA0.2S49 IH; -LEVA1.25 IH; +LEVA1.2528 IH; +MAGN2400 GT; -NUT.237L30 GT; +NUT.237L31 GT; +SACC250C GT; +TRAM50TA GT
--- NOTE | 2018-04-06 22:30 | NUR ---
PT DANYA FROM [facility]. PT PRESENTED WITH GTUBE, DOTY CATH, AND TRACH. PT HAS SACRAL AND LEFT HEEL PRESSURE ULCER. PT RESPONSIVE TO PAINFUL STIMULI. PT PLACED ON MONITOR. WILL CONTINUE TO MONITOR Addendum: 04/06/18 at 2322 by OZZIE VENT SETTINGS- RATE: 12, TIDAL VOLUME: 500, O2: 40, PEAK: 50, PEEP: 7
--- NOTE | 2018-04-06 22:32 | NUR ---
MD AT BEDSIDE FOR EVALUATION
--- NOTE | 2018-04-06 22:40 | NUR ---
IV INITIATED RIGHT HAND 18G. LABS DRAWN FROM SITE. STREETCAR OPERATOR AT BEDSIDE FOR COLLECTION.
[2018-04-06] MEDS ORDERED: CEFTRIAXONE 1GM BAG (ER ONLY) 50 ML IV ONE (23:00)
[2018-04-06] MEDS ORDERED: IV NS 0.9% 1,000 ML BAG IV ONE (23:00)
--- NOTE | 2018-04-06 23:06 | NUR ---
PT ARRIVED TO ER DEPT, ON [facility] VENTILATION SUPPORT, AND TRACHED WITH A PORTEX #7, MD PICKERING AT BEDSIDE. PT WAS PLACED ON PREVIOUS SETTINGS USED AT FACILITY OF: AX 12R 500VT 40%O2 +7 PEEP. PT TOLERATING SETTINGS WELL NO ADVERSE REACTIONS NOTED OR INDICATION OF SOB. PT EXTRA TRACH (PORTEX #7) AT BEDSIDE WELL AMBU BAG. MECH VENT PLUGGED INTO RED OUTLET, BRAKES LOCKED, AND ALARMS SET AND AUDIBLE, WITH DISCONNECTION ALARM TESTED. ZOE FELIX. PENDING ABG Addendum: 04/06/18 at 2312 by RENE DE SANTIAGO RT Amended: Links added.
[2018-04-06 23:10] LABS: EOSINOPHILS % (AUTO) 0.7 % (0.0-6.0); HEMATOCRIT 26 % (33-45); HEMOGLOBIN 8.3 g/dL (11.5-14.8); LYMPHOCYTES # (AUTO) 1.4 /CMM (0.8-4.8); LYMPHOCYTES % (AUTO) 13.9 % (20.0-44.0); MEAN CORPUSCULAR HGB CONC 32 g/dl (31.0-36.0); MEAN CORPUSCULAR VOLUME 96 fL (82-100); MONOCYTES # (AUTO) 0.3 /CMM (0.1-1.30); NEUTROPHILS # (AUTO) 8.1 /CMM (1.8-8.9); NEUTROPHILS % (AUTO) 82.4 % (43.0-81.0); PLATELET COUNT (AUTO) 355 /CMM (150-450); RDW COEFFICIENT OF VARIATION 22.4 (11.5-15.0); RED BLOOD CELL COUNT(AUTO) 2.66 MIL/uL (4.0-5.2); WHITE BLOOD COUNT (AUTO) 9.8 K/uL (4.3-11.0)
[2018-04-06] MEDS ORDERED: CEFTRIAXONE 1 G VIAL ONE (23:16)
[2018-04-06 23:17] LABS: APPEARANCE,URINE CLOUDY (CLEAR); BILIRUBIN,URINE NEGATIVE (NEGATIVE); BLOOD, URINE 3+ Ery/uL (NEGATIVE); COLOR,URINE YELLOW (YELLOW); KETONES,URINE NEGATIVE (NEGATIVE); LEUKOCYTE ESTERASE ,URINE 2+ (NEGATIVE); NITRITE, URINE NEGATIVE (NEGATIVE); PH,URINE 8.5 (5.0-8.0); PROTEIN,URINE 2+ mg/dl (NEGATIVE); UGLUCOSE NEGATIVE (NEGATIVE)
[2018-04-06 23:21] LABS: CALCIUM, SERUM 8.6 mg/dL (8.5-10.1); CARBON DIOXIDE 28 mmol/L (21-32); CHLORIDE 94 mmol/L (98-107); CREATININE 0.8 mg/dL (0.6-1.3); GLUCOSE 216 mg/dL (74-106); POTASSIUM 4.2 mmol/L (3.5-5.1); SODIUM SERUM 130 mmol/L (136-145); UREA NITROGEN, BLOOD 33 mg/dL (7-18)
[2018-04-06 23:23] LABS: INR 1.07 (0.87-1.13)
[2018-04-06 23:26] LABS: BACTERIA,URINE 3+ /HPF (None Seen); RBC,URINE 51-80 /HPF (0-2)
[2018-04-06 23:27] LABS: SQUAMOUS EPITHELIAL CELL,UR None Seen /HPF (None Seen); TRIPLE PHOSPHATE CRYSTAL,UR Many /HPF (None Seen); URINE AMORPHOUS PHOSPHATES Moderate /HPF (None Seen)
[2018-04-06 23:29] LABS: TROPONIN I < 0.017 ng/mL (0.00-0.056)
[2018-04-06 23:33] LABS: ABG OXYGEN SATURATION 97.6 % (92.0-98.5); ABG PCO2 37.8 mmHg (35.0-45.0); ABG PH 7.482 (7.350-7.450); AaDO2 135.7 mmHg; COHb 0.6 % (0.5-1.5); MetHb 0.8 % (0.0-1.5); O2Hb 96.2 % (94.0-97.0); PEEP,BG 7 cm H2O; SITE, ABG Right Radial; VT, ABG 500 mL
[2018-04-06 23:34] LABS: ALANINE AMINOTRANSFERASE 20 U/L (12-78); ALBUMIN 2.2 g/dL (3.4-5.0); ALKALINE PHOSPHATASE 97 U/L (46-116); ASPARTATE AMINOTRANSFERASE 25 U/L (15-37); B-TYPE NATRIURETIC PEPTIDE 336 PG/ML (0-125); BILIRUBIN,DIRECT 0.1 mg/dL (0.0-0.2); BILIRUBIN,TOTAL 0.4 mg/dL (0.2-1.0); TOTAL PROTEIN, SERUM 7.4 g/dL (6.4-8.2)
[2018-04-07] VITALS (8 sets, daily range): BP systolic 93–145; BP diastolic 33–79
--- NOTE | 2018-04-07 00:04 | NUR ---
RADIOLOGY AT BEDSIDE
--- NOTE | 2018-04-07 00:05 | NUR ---
PER VERBAL MD ORDER, DC IV FLUIDS
[2018-04-07] MEDS ORDERED: MAG HYDROX/AL HYDROX/SIMETH 30 ML UDC PO PRN (01:00)
[2018-04-07] MEDS ORDERED: ZOLPIDEM TARTRATE 5 MG TABLET PO PRN (01:00)
[2018-04-07] MEDS ORDERED: Z GUARD REMEDY 2 OZ OINT TP PRN (01:00)
[2018-04-07] MEDS ORDERED: MAGNESIUM HYDROXIDE 30 ML UDC PO PRN (01:00)
[2018-04-07] MEDS ORDERED: ONDANSETRON HCL/PF 4 MG/2 ML VIAL IVP PRN (01:00)
--- NOTE | 2018-04-07 01:07 | NUR ---
GAVE REPORT TO YOGESH FOR HECTOR
--- NOTE | 2018-04-07 01:10 | NUR ---
CALLED RT TO TRANSFER PT TO [place] [id number]
--- NOTE | 2018-04-07 01:20 | NUR ---
RN [place] ADMITTING NOTE RECEIVED PT FROM ER, REPORT GIVEN BY TRINI SOLANO RN, PT ON VENT OBTUNDED, TV 500, AC 12 FIO2 40% AND PEEP7, WELL MAVIS, NO SIGN OF DISTRESS, W/MODERATE THICK W/Y SECRETIONS NOTED, W/RH#18G, PATENT AND WELL SECURED, W/NS@75ML/HR ORDERED, MULTIPLE SKIN ISSUES NOTED, PHOTOS TAKEN PER PROTOCOL AND FILED. WOUND CONSULT AND SPECIAL BED ORDERED. W/GT IN PLACE, REDNESS AT [place] WELL DRAINAGE NOTED, PAT DRY W/CLEAN T-DRAIN PLACE, PT W/F/C, DRAINING CLOUDY O/P, URINE SAMPLE OBTAINED IN ER + FOR BEL, WBC IN URINE 11-20H, V/S STABLE, AFEBRILE, ALL ADMITTING ORDERS ENTERED BY DR CARRANZA PER PROTOCOL, ALL SAFETY MEASURES MET, KEPT CLEAN AND DRY, WELL REPOSITIONED, WILL CONT TO MONITOR PT.
--- NOTE | 2018-04-07 01:29 | NUR ---
PT TRANSFERRED TO [place] PER ACLS PROTOCOL
[2018-04-07] MEDS ORDERED: ENOXAPARIN SODIUM 40 MG/0.4 ML DISP.SYRIN SQ ONE (01:30)
[2018-04-07] MEDS: IV NS 0.9% 1,000 ML IV PRN ×2 (02:37→21:46)
[2018-04-07] MEDS ORDERED: PIPERACILLIN /TAZOBACTAM 2.25 G VIAL IV ONE (04:53)
[2018-04-07] MEDS: PIPERACILLIN /TAZOBACTAM 2.25 G in IV D5W 50 ML IV SCH ×3 (05:07→17:03)
--- NOTE | 2018-04-07 06:35 | NUR ---
RD [place] CLOSING NOTE PT CONT VENT SETTING ORDERED, STABLE,NO DISTRESS, AFEBRILE, KEPT CLEAN AND DRY, WELL REPOSITIONED Q2H, WILL ENDORSE TO AM SHIFT RN TO F/U ON PLAN OF CARE.
--- NOTE | 2018-04-07 07:00 | NUR ---
RN NOTES RECEIVED PT ON BED , VENT/ TRACH DEPENDENT, OBTUNDED, TRACH CARE DONE, NO SOB NOTED, ON TELE SR , HR IN 90'S, DOTY DRINING TO GRAVITY , NS AT 75CC/HR RUNNING VIA R HAND IV SITE G 18 ,SITE CLEAN ,DRY AND INTACT, GT CLAMPED AT THIS TIME , SR UP x3, CALL LIGHT WITHIN EASY REACH, BED LOCKED AND IN LOWEST POSITION, CONTINUE TO MONITOR.
[2018-04-07 07:37] LABS: BASOPHILS % (AUTO) 0.2 % (0.0-2.0); EOSINOPHILS % (AUTO) 1.3 % (0.0-6.0); HEMATOCRIT 28 % (33-45); HEMOGLOBIN 8.9 g/dL (11.5-14.8); LYMPHOCYTES # (AUTO) 1.4 /CMM (0.8-4.8); LYMPHOCYTES % (AUTO) 15.9 % (20.0-44.0); MEAN CORPUSCULAR HGB CONC 32 g/dl (31.0-36.0); MEAN CORPUSCULAR VOLUME 98 fL (82-100); MONOCYTES # (AUTO) 0.2 /CMM (0.1-1.30); MONOCYTES % (AUTO) 2.5 % (2.0-12.0); NEUTROPHILS # (AUTO) 7.1 /CMM (1.8-8.9); NEUTROPHILS % (AUTO) 80.1 % (43.0-81.0); PLATELET COUNT (AUTO) 339 /CMM (150-450); RDW COEFFICIENT OF VARIATION 22.1 (11.5-15.0); RED BLOOD CELL COUNT(AUTO) 2.82 MIL/uL (4.0-5.2); WHITE BLOOD COUNT (AUTO) 8.9 K/uL (4.3-11.0)
[2018-04-07] MEDS ORDERED: ALBU2.5V38 IH (07:39)
[2018-04-07] MEDS ORDERED: RANI15SY GT (07:39)
[2018-04-07] MEDS ORDERED: INSU100I26 SQ (07:39)
[2018-04-07] MEDS ORDERED: METH1TAB30 GT (07:39)
[2018-04-07] MEDS ORDERED: ACET650S26 GT (07:39)
[2018-04-07] MEDS ORDERED: NUT.237L30 GT (07:39)
[2018-04-07 08:06] LABS: ALANINE AMINOTRANSFERASE 17 U/L (12-78); ALBUMIN 2.3 g/dL (3.4-5.0); ALKALINE PHOSPHATASE 94 U/L (46-116); ASPARTATE AMINOTRANSFERASE 28 U/L (15-37); BILIRUBIN,TOTAL 0.5 mg/dL (0.2-1.0); CALCIUM, SERUM 8.8 mg/dL (8.5-10.1); CARBON DIOXIDE 27 mmol/L (21-32); CHLORIDE 94 mmol/L (98-107); CREATININE 0.7 mg/dL (0.6-1.3); GLUCOSE 167 mg/dL (74-106); POTASSIUM 3.9 mmol/L (3.5-5.1); SODIUM SERUM 130 mmol/L (136-145); TOTAL PROTEIN, SERUM 7.4 g/dL (6.4-8.2); UREA NITROGEN, BLOOD 28 mg/dL (7-18)
[2018-04-07] MEDS ORDERED: FEE PK DOSING 1 MIN EA MC ONE (08:42)
[2018-04-07] MEDS: VANCOMYCIN 0.75 GM in IV D5W 250 ML IV SCH ×2 (09:33→21:22)
--- NOTE | 2018-04-07 09:50 | NUR ---
RN NOTES EZIO SALESPERSON SURGICAL APPLIANCES NOTIFED REGARDING DNR POLST THAT IS ON THE CHART FROM SNF , NO NEW ORDER GIVEN AT THIS TIME.
--- NOTE | 2018-04-07 11:18 | NUR ---
RT RECD PT TRACHED INTACT AND SECURED ON MECH VENT MAVIS ORDERED SETTING ALARMS ON AND AUDIBLE VENT PLUGGED IN RED OUTLET BAG AND MASK AT HOB SX THICK YELLOW SECRETIONS ON TRACH AND MOUTH NO RESP DISTRESS NOTED ATT WILL CONTINUE TO MONITOR
[2018-04-07] MEDS: HYDROCODONE/APAP 5/325MG 1 EACH TABLET PO PRN (12:56)
[2018-04-07] MEDS: NYSTATIN TOP POWDER 15 GM BOTTLE TP SCH (13:50)
[2018-04-07] MEDS: DAKINS QUARTER STRENGTH (0.125%) 480 ML BOTTLE TOP SCH (13:51)
[2018-04-07] MEDS ORDERED: ACETAMINOPHEN 650 MG/20.3 ML UDC GT PRN (18:00)
[2018-04-07] MEDS ORDERED: NA PHOS,M-B/NA PHOS,DI-BA 1 EA ENEMA RC PRN (18:00)
[2018-04-07] MEDS ORDERED: CLONIDINE HCL 0.1 MG TABLET GT PRN (18:00)
--- NOTE | 2018-04-07 18:25 | NUR ---
RN NOTES PT STABLE, ORDER RECEIVED TO START TF AT 20CC/HR , NS AT 75CC/HR RUNNING VIA R HAND IV SITE , CONSENT OBTAINED FORM FAMILY FOR THORACENTESIS AND WOUND DEBRIDEMENT. SR UP x3, CALL LIGHT WITHIN EASY REACH, BED LOCKED AND IN LOWEST POSITION, WILL ENDOSE TO BROOM MAN FOR CONTINUITY OF CARE .
[2018-04-07] MEDS ORDERED: DEXTROSE 50%-WATER 50 ML DISP.SYRIN IV PRN (18:30)
[2018-04-07] MEDS: GLUCERNA 1.2 1,000 ML BOTTLE NG PRN (18:44)
[2018-04-07] MEDS: IPRATROPIUM NEB FS 0.5 MG/2.5 ML AMPUL.NEB IH SCH (19:14)
--- NOTE | 2018-04-07 20:00 | NUR ---
RN NOTES RECEIVED PT ON BED , VENT/ TRACH DEPENDENT, NO SOB NOTED, ON TELE SR , HR IN 98, DOTY DRAINING TO GRAVITY , NS AT 75CC/HR RUNNING VIA R HAND IV SITE G 18 ,SITE CLEAN ,DRY AND INTACT, GT INFUSING TUBE FEEDING , SR UP x3, CALL LIGHT WITHIN EASY REACH, BED LOCKED AND IN LOWEST POSITION, ALL SAFETY PRECAUTIONS TAKEN. WILL CONTINUE TO MONITOR.
[2018-04-07] MEDS ORDERED: BISACODYL SUPP (10 MG) 10 MG/SUPP.RECT SUPP.RECT RC PRN (20:30)
[2018-04-07] MEDS: ENOXAPARIN SODIUM 40 MG/0.4 ML DISP.SYRIN SQ SCH (21:23)
[2018-04-07] MEDS: ATORVASTATIN 40 MG TABLET GT SCH (21:24)
[2018-04-07] MEDS: MAGNESIUM OXIDE 400 MG TABLET GT SCH (21:24)
[2018-04-07] MEDS: BLOOD SUGAR DIAGNOSTIC 1 EACH STRIP IN SCH (21:26)
[2018-04-07] MEDS: INSULIN GLARGINE, 100 UNIT/ML CARTRIDGE SQ SCH (21:34)
--- NOTE | 2018-04-07 23:43 | NUR ---
CHARGE NURSE NOTIFIED THAT PT SPUTUM SAMPLE PLACED IN FRIDGE FOR COLLECTION FOR LAB. APPROX 10 CC DRAWN THICK , YELLOW SECRETIONS Addendum: 04/07/18 at 2349 by RENE DE SANTIAGO RT Amended: Links added.
[2018-04-08] VITALS: BP 106/42
[2018-04-08] MEDS: NYSTATIN TOP POWDER 15 GM BOTTLE TP SCH ×2 (00:02→11:39)
[2018-04-08] MEDS: IPRATROPIUM NEB FS 0.5 MG/2.5 ML AMPUL.NEB IH SCH ×4 (01:50→19:29)
[2018-04-08 04:00] VITALS: BP 113/59
[2018-04-08] MEDS: PIPERACILLIN /TAZOBACTAM 2.25 G in IV D5W 50 ML IV SCH ×6 (06:05→23:02)
[2018-04-08 06:41] LABS: BASOPHILS % (AUTO) 0.2 % (0.0-2.0); EOSINOPHILS % (AUTO) 0.7 % (0.0-6.0); HEMATOCRIT 27 % (33-45); HEMOGLOBIN 8.9 g/dL (11.5-14.8); LYMPHOCYTES # (AUTO) 0.4 /CMM (0.8-4.8); LYMPHOCYTES % (AUTO) 3.6 % (20.0-44.0); MEAN CORPUSCULAR HGB CONC 33 g/dl (31.0-36.0); MEAN CORPUSCULAR VOLUME 97 fL (82-100); MONOCYTES # (AUTO) 0.3 /CMM (0.1-1.30); MONOCYTES % (AUTO) 2.7 % (2.0-12.0); NEUTROPHILS # (AUTO) 10.3 /CMM (1.8-8.9); NEUTROPHILS % (AUTO) 92.8 % (43.0-81.0); PLATELET COUNT (AUTO) 399 /CMM (150-450); RDW COEFFICIENT OF VARIATION 21.6 (11.5-15.0); RED BLOOD CELL COUNT(AUTO) 2.81 MIL/uL (4.0-5.2); WHITE BLOOD COUNT (AUTO) 11.1 K/uL (4.3-11.0)
[2018-04-08 07:16] LABS: CALCIUM, SERUM 8.9 mg/dL (8.5-10.1); CARBON DIOXIDE 27 mmol/L (21-32); CHLORIDE 99 mmol/L (98-107); GLUCOSE 174 mg/dL (74-106); MAGNESIUM 2.1 mg/dL (1.8-2.4); PHOSPHORUS 4.2 mg/dL (2.5-4.9); POTASSIUM 4.1 mmol/L (3.5-5.1); SODIUM SERUM 134 mmol/L (136-145); UREA NITROGEN, BLOOD 29 mg/dL (7-18)
[2018-04-08 07:19] LABS: CHOLESTEROL 85 mg/dL (<200); HDL CHOLESTEROL 40 mg/dL (40-60); LDL 43 mg/dL (0-99); TRIGLYCERIDES 83 mg/dL (30-150)
--- NOTE | 2018-04-08 07:39 | NUR ---
RN CLOSING NOTES NO SIGNIFICANT OVERNIGHT. ALL NEED MET. ALL SAFETY PRECAUTIONS TAKEN. ALL DUE MEDS GIVEN. WILL ENDORSE TO AM RN.
--- NOTE | 2018-04-08 08:00 | NUR ---
ASSISTED LIVING ASSOCIATE NOTE RECEIVED PATIENT IN BED ,VERY RESTLESS AND TRYING TO MOVE AROUND IN BED , ON TACH TO VENT SETTING ORDERED AMBU BAG AT HOB AT ALL TIME , ON TELE MONIOT [facility] 108 , WITH DOTY CATH TO GRAVITY WITH YELLOW CLOUDY COLOR URINE RT AT BEDSIDE BREATHING TX DONE , ON G TUBE FEEDING ORDERED NO RESIDUAL NOTED , NEW IV ON RT FA INSERTED WITH GOOD BLOOD RETURN SERGE 24, NOTED THAT OLD ONE HL WITH SWELLING , BED IN LOWEST AND LOCKED P0SION , CALL LIGHT WITHIN REACH , WILL CONT TO MONITOR CLOSELY
[2018-04-08] MEDS: FERROUS SULFATE UDC 300 MG/5 ML UDC GT SCH ×3 (08:12→17:20)
[2018-04-08] MEDS: DOCUSATE SODIUM LIQ 100 MG/10 ML UDC GT SCH (08:12)
[2018-04-08] MEDS: ASCORBIC ACID 500 MG TABLET GT SCH (08:13)
[2018-04-08] MEDS: ZINC SULFATE 220 MG CAPSULE GT SCH (08:13)
[2018-04-08] MEDS: PROSOURCE / PROSTAT (PYXIS) 30 ML UDC GT SCH ×2 (08:13→17:20)
[2018-04-08] MEDS: MULTIVITAMINS,THERAGRAN 1 UDTAB TABLET GT SCH (08:13)
[2018-04-08] MEDS: VANCOMYCIN 0.75 GM in IV D5W 250 ML IV SCH ×2 (08:15→21:02)
--- NOTE | 2018-04-08 08:15 | NUR ---
SUPERVISOR COIN MACHINE NOTE NOTED DOTY CATH LEAKING, NEW FR 16 INSERTED , KEEP CLEAN DRY NOTED YELLOW SHARITA COLOR URINE
[2018-04-08] MEDS: BLOOD SUGAR DIAGNOSTIC 1 EACH STRIP IN SCH ×4 (08:18→22:44)
[2018-04-08] MEDS: FAMOTIDINE (20 MG) 20 MG TABLET GT SCH (08:22)
[2018-04-08] MEDS: MULTIVIT, IRON, MIN NO. 8, FA 1 TAB GT SCH (08:22)
[2018-04-08] MEDS: ACIDOPHILUS/BULGARICUS 1 EACH TAB.CHEW GT SCH ×2 (08:22→17:19)
[2018-04-08] MEDS: DAKINS QUARTER STRENGTH (0.125%) 480 ML BOTTLE TOP SCH (08:23)
[2018-04-08 08:27] VITALS: BP 105/63
[2018-04-08] MEDS ORDERED: POLYVINYL ALCOHOL 15 ML BOTTLE EACHEYE PRN (08:30)
[2018-04-08] MEDS: INSULIN REGULAR, HUMAN 100 UNIT/ML 3 ML VIAL SQ PRN ×4 (08:38→22:51)
[2018-04-08] MEDS ORDERED: ASCORBIC ACID SYRUP 500 MG/5 ML UDC GT SCH (09:00)
[2018-04-08] MEDS ORDERED: Medication Not On Formulary EA (Methenamine Hippurate 1 GM) GT SCH (09:00)
[2018-04-08] MEDS ORDERED: PROSOURCE / PROSTAT (PYXIS) 30 ML UDC GT SCH (09:00)
--- NOTE | 2018-04-08 09:54 | NUR ---
FRINGING MACHINE OPERATOR NOTE DR LAMAR AT BEDSIDE NOTIFIED THAT PATIENT HAS A LOT OF SECRETION ALSO NOTIFIED THAT PER RADIOLOGY US THORACENTESIS WILL BE DONE TOMORROW
[2018-04-08 12:00] VITALS: BP 91/36
[2018-04-08] MEDS: ACETAMINOPHEN 325 MG TABLET PO PRN (12:06)
[2018-04-08] MEDS: ALBUTEROL FS 2.5 MG/0.5 ML VIAL.NEB NEB SCH ×2 (13:04→19:29)
--- NOTE | 2018-04-08 14:00 | NUR ---
MICROWAVE REMOTE SENSING SCIENTIST NOTE T 100.0, COOLING MEASURE PROVIDED, WILL CONT TO MONITOR CLOSELY
--- NOTE | 2018-04-08 14:53 | NUR ---
TELE RNNOTE UNABLE TO INSERT IV ON ARM PATINT IS HARD STICK ,PER MOHSEN RN RELEASE SPECIALIST OK TO INSERT IV ON FOOT AND DO MID LINE ,WATCH TRAIN INSPECTOR NOTIFIED
[2018-04-08] MEDS: HYDROCODONE/APAP 5/325MG 1 EACH TABLET PO PRN (15:00)
--- NOTE | 2018-04-08 15:10 | NUR ---
PT RECEIVED TRACHED ON MECHANICAL VENT W/ SETTINGS PER MD ORDER. VENT IN RED OUTLET, VENT ALARMS CHECKED AND AUDIBLE. PT SX'ED AND LAVAGED PRN. MEDS GIVEN INLINE PER ORDER. TRACH TUBE PATENT, INTACT, CLEAN AND DRY. BREATH SOUNDS EQUAL, DIMINISHED, COARSE. PLAN IS CONTINUE CARE UNDER CURRENT MD ORDERS AND MONITOR FOR CHANGES.
--- NOTE | 2018-04-08 15:12 | NUR ---
MARKET GARDENER NOTE C\O GENERAL PAIN IN BODY, RESTLESS, NORCO VA G TUBE GIVEN. WILL Ana Maria\Natanael TREJO FROM PICC LINE AT BEDSIDE TRYING TO INSERT MIDLINE Addendum: 04/08/18 at 1530 by FIDEL PURVIS RN RT AC MID LINE INSERTED BY MAYA FROM PICC LINE, KEEP CLEAN DRY, CONT IVF ORDERED
[2018-04-08] MEDS: IV NS 0.9% 1,000 ML IV PRN (15:55)
[2018-04-08 16:05] VITALS: BP 137/100
[2018-04-08] MEDS ORDERED: LACTOBACILLUS RHAMNOSUS GG 1 EACH CAP.SPRINK PO SCH (17:00)
--- NOTE | 2018-04-08 17:56 | NUR ---
PHYSICIAN NON INVASIVE CARDIOLOGIST NOTE ALL NEEDS ATTENDED, CONT GTUBE FEEDING ORDERED , TRACH AND ORAL SUCTION DONE ,WILL CONT TO MONITOR CLOSELY
--- NOTE | 2018-04-08 18:07 | NUR ---
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
--- NOTE | 2018-04-08 19:00 | NUR ---
TLE RN NOTE ALL NEEDS ATTENDED ,ON TRACH TO VENT SETTING ORDERED .CONT ON IVF ORDERED ALL NEEDS ATTENDED,WILL CONT TO MONITOR CLOSELY
[2018-04-08 20:00] VITALS: BP 91/45
--- NOTE | 2018-04-08 20:00 | NUR ---
TELE 1 RN NOTE PT IN BED A/O X 1-2, ON VENT/TRACH TOLERATING SETTINGS WELL. ON TELE MONITOR SR 85. NO DISTRESS OR DISCOMFORT NOTED. NO S/S OF PAIN NOTED. F/C INTACT AND PATENT DRAINING SHARITA COLOR, CLOUDY URINE. GTF INFUSING GLUCERNA 1.2 AT 65 ML/HR. 0 ML RESIDUAL NOTED. REMAIN IN ISOLATION FOR MRSA NARES. KEPT HER DRY AND CLEAN. ALL NEEDS ATTENDED. CONTINUE TO MONITOR HER.
[2018-04-08] MEDS: MAGNESIUM OXIDE 400 MG TABLET GT SCH (21:04)
[2018-04-08] MEDS: ATORVASTATIN 40 MG TABLET GT SCH (21:04)
[2018-04-08] MEDS: ENOXAPARIN SODIUM 40 MG/0.4 ML DISP.SYRIN SQ SCH (21:05)
--- NOTE | 2018-04-08 21:30 | NUR ---
PHYS THER OPENING NOTE - On-Call, called in after normal start time Patient was seen lying in bed, nonverbal due to trach/vent, but patient can respond by shaking head "yes or no"; patient appears to be AOx1. Patient is tolerating trach/vent setting well with no signs of SOB or aspiration. On telemonitor with NSR of 85 bpm. Patient shows no signs of acute distress. F/C intact draining yellow urine. Glucerna G-tube feed is running at 65 ML/HR. 0 ML residual noted. NS at 75ml/hr is running through the RAC midline with no signs of leaking or infiltration. Bed is low/locked, two side rails up. Will continue to monitor.
[2018-04-08] MEDS: INSULIN GLARGINE, 100 UNIT/ML CARTRIDGE SQ SCH (22:48)
[2018-04-09] VITALS (7 sets, daily range): BP systolic 92–157; BP diastolic 47–63
[2018-04-09] MEDS: NYSTATIN TOP POWDER 15 GM BOTTLE TP SCH ×2 (00:52→14:25)
[2018-04-09] MEDS: IPRATROPIUM NEB FS 0.5 MG/2.5 ML AMPUL.NEB IH SCH ×4 (02:13→19:48)
[2018-04-09] MEDS: ALBUTEROL FS 2.5 MG/0.5 ML VIAL.NEB NEB SCH ×4 (02:13→19:48)
[2018-04-09] MEDS: PIPERACILLIN /TAZOBACTAM 2.25 G in IV D5W 50 ML IV SCH ×4 (05:05→23:47)
[2018-04-09] MEDS: IV NS 0.9% 1,000 ML IV PRN (06:15)
[2018-04-09] MEDS: BLOOD SUGAR DIAGNOSTIC 1 EACH STRIP IN SCH ×4 (06:48→21:36)
--- NOTE | 2018-04-09 07:10 | NUR ---
PERSONAL INSURANCE ADVISOR NOTES RECEIVED THE PT ON BED.ALERT/MOUTH WORDS ,WITH VENTILATOR AND TRACHEOSTOMY TOLERATING VENT SETTINGS WELL ,ON TELE SINUS RHYTHM WITH HR 70,S ,DOTY CATHETER WHICH IS INTACT.WITH IV NS @75 ML/HR RUNNING VIA RIGHT AC MIDLINE,SITE CLEAN AND DRY,RIGHT FOOT G24,DRY,INTACT AND NO INFILTRATION.CALL LIGHT IS WITHIN REACH.BED IS IN LOWEST POSITION AND LOCKED.WILL CONTINUE TO MONITOR THE PT CLOSELY.
--- NOTE | 2018-04-09 07:23 | NUR ---
CHEMICAL PROCESSING SUPERVISOR CLOSING NOTE Patient was seen lying in bed, nonverbal due to trach/vent, but patient can respond by shaking head "yes or no"; patient appears to be AOx1. Patient is tolerating trach/vent setting well with no signs of SOB or aspiration. On telemonitor with NSR of 80 bpm. Patient shows no signs of acute distress. F/C intact draining yellow urine with 600 ml out this shift. Glucerna G-tube feed was placed on hold to keep patient NPO for US-guided thoracentesis today (04/09/18). NS at 75ml/hr is running through the RAC midline with no signs of leaking or infiltration. Bed is low/locked, two side rails up. Patient care endorsed to day shift nurse.
[2018-04-09 07:24] LABS: CALCIUM, SERUM 8.6 mg/dL (8.5-10.1); CARBON DIOXIDE 30 mmol/L (21-32); CHLORIDE 101 mmol/L (98-107); CREATININE 0.8 mg/dL (0.6-1.3); GLUCOSE 99 mg/dL (74-106); POTASSIUM 3.7 mmol/L (3.5-5.1); SODIUM SERUM 136 mmol/L (136-145); UREA NITROGEN, BLOOD 26 mg/dL (7-18)
[2018-04-09 07:31] LABS: INR 1.11 (0.87-1.13)
[2018-04-09] MEDS: FERROUS SULFATE UDC 300 MG/5 ML UDC GT SCH ×3 (08:12→17:31)
[2018-04-09] MEDS: MULTIVIT, IRON, MIN NO. 8, FA 1 TAB GT SCH (08:13)
[2018-04-09] MEDS: ACIDOPHILUS/BULGARICUS 1 EACH TAB.CHEW GT SCH ×2 (08:13→17:31)
[2018-04-09] MEDS: DOCUSATE SODIUM LIQ 100 MG/10 ML UDC GT SCH (08:13)
[2018-04-09] MEDS: FAMOTIDINE (20 MG) 20 MG TABLET GT SCH (08:14)
[2018-04-09] MEDS: ASCORBIC ACID 500 MG TABLET GT SCH (08:14)
[2018-04-09] MEDS: MULTIVITAMINS,THERAGRAN 1 UDTAB TABLET GT SCH (08:14)
[2018-04-09] MEDS: ZINC SULFATE 220 MG CAPSULE GT SCH (08:14)
[2018-04-09] MEDS: DAKINS QUARTER STRENGTH (0.125%) 480 ML BOTTLE TOP SCH (08:15)
[2018-04-09] MEDS: VANCOMYCIN 0.75 GM in IV D5W 250 ML IV SCH ×2 (08:17→21:29)
[2018-04-09] MEDS: PROSOURCE / PROSTAT (PYXIS) 30 ML UDC GT SCH ×2 (08:18→17:31)
[2018-04-09] MEDS: GLUCERNA 1.2 1,000 ML BOTTLE NG PRN ×2 (09:30→23:47)
[2018-04-09] MEDS ORDERED: LIDOCAINE 1%-EPI 1:100,000 20 ML VIAL TP ONE (09:30)
[2018-04-09] MEDS ORDERED: SILVER NITRATE APPLICATOR 1 EA BOX TP ONE (09:30)
--- NOTE | 2018-04-09 10:00 | NUR ---
GORE INSERTER NOTES CANCELLED THE PROCEDURE OF US GUIDED THORACENTESIS THEY COULDN'T FIND OUT THE FLUID ACCUMULATION.
--- NOTE | 2018-04-09 10:00 | NUR ---
RN NOTES US GUIDED THORACENTESIS CANCELED PER MD ORDER.
--- NOTE | 2018-04-09 11:42 | NUR ---
WOUND CARE CONSULT WOUND CARE RECEIVED CONSULT FOR WOUNDS. WOUND CARE WILL DEFER CONSULT AND ALL TREATMENT PLANS TO SURGICAL TEAM WHO ARE CURRENTLY FOLLOWING. PATIENT WITH VIN AT 11, ALL PRESSURE ULCER PREVENTION MEASURES ARE NOTED TO BE IN PLACE. WILL SEE PRN.
[2018-04-09] MEDS: INSULIN REGULAR, HUMAN 100 UNIT/ML 3 ML VIAL SQ PRN ×3 (12:13→21:39)
--- NOTE | 2018-04-09 14:23 | NUR ---
PATIENT RECEIVED TRACHED ON MECHANICAL VENT. ALARMS VERIFIED AND AUDIBLE. SUCTIONED AND LAVAGED MODERATE-LARGE AMOUNTS OF THICK BELLO SECRETIONS. VENT PLUGGED INTO RED OUTLET. AMBU BAG AT [facility].
--- NOTE | 2018-04-09 15:39 | NUR ---
PLASTIC SHAPER NOTES SEEN AND EXAMINED THE PT LEFT FOOT AND DONE THE WOUND DEBRIDEMENT.FAMILY MADE AWARE.
[2018-04-09] MEDS: MUPIROCIN OINT 2% 22 GM TUBE SCH ×2 (18:39→21:28)
--- NOTE | 2018-04-09 18:40 | NUR ---
BALL MACHINE OPERATOR CLOSING NOTES PT IS ON BED WITH G TUBE FEEDING AND IV FLUIDS.IV LINE IS ON RIGHT AC AND RIGHT FOOT,SITE IS CLEAN,DRY AND INTACT.NO SOB AND ACUTE DISTRESS NOTED.WOUND DEBRIDEMENT DONE ON LEFT FOOT BY WILL ENDORSE TO NEXT SHIFT TO MONITOR THE PT CLOSELY.
--- NOTE | 2018-04-09 19:29 | NUR ---
TAXI DRIVER NOTES: RECEIVED PT ON BED WITH NO APPAREN DISTRESS NOTED. NO FACIAL GRIMACING OR ANY SIGNS OF PAIN NOTED. ON [facility] VENT, SETTINGS ORDERED. NO SOB NOTED. ON TELE MONITOR SINUS RHYTHM HR 86BPM. RIGHT ANTECUBITAL MIDLINE INTACT AND PATENT WITH IVF NS RUNNING AT 75ML/HR, INFUSING WELL. GT INTACT, NO RESIDUAL NOTED AT THIS TIME. KEPT CLEAN, DRY AND COMFORTABLE. SAFETY AND FALL PRECAUTIONS OBSERVED AND MAINTAINED. WILL CONTINUE TO MONITOR PT.
--- NOTE | 2018-04-09 20:39 | NUR ---
RT NOTE: RECEIVED TRACH PT ON MECHANICAL VENT WITH NOTED SETTINGS. Q6 BREATHING TX GIVEN PER MD ORDER. NO ADVERSE REACTION NOTED. SX DONE WITH MODERATE AMOUNT OF THICK YELLOW SECRETIONS. PT TRACH PATENT AND SECURE. 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 AMBU BAG AT BEDSIDE. VENT PLUGGED INTO RED OUTLET. ALARMS ARE ON AND AUDIBLE. WILL CONTINUE TO MONITOR Addendum: 04/10/18 at 0226 by RICHARD POLK RT Amended: Links added.
[2018-04-09] MEDS: ATORVASTATIN 40 MG TABLET GT SCH (21:28)
[2018-04-09] MEDS: MAGNESIUM OXIDE 400 MG TABLET GT SCH (21:28)
[2018-04-09] MEDS: INSULIN GLARGINE, 100 UNIT/ML CARTRIDGE SQ SCH (21:37)
[2018-04-09] MEDS: ENOXAPARIN SODIUM 40 MG/0.4 ML DISP.SYRIN SQ SCH (21:38)
[2018-04-10] VITALS: BP 109/60
[2018-04-10] MEDS: NYSTATIN TOP POWDER 15 GM BOTTLE TP SCH ×2 (00:47→14:06)
[2018-04-10] MEDS: IV NS 0.9% 1,000 ML IV PRN ×2 (01:20→20:05)
[2018-04-10] MEDS: ALBUTEROL FS 2.5 MG/0.5 ML VIAL.NEB NEB SCH ×4 (01:28→19:36)
[2018-04-10] MEDS: IPRATROPIUM NEB FS 0.5 MG/2.5 ML AMPUL.NEB IH SCH ×4 (01:28→19:36)
[2018-04-10] MEDS: HYDROCODONE/APAP 5/325MG 1 EACH TABLET PO PRN ×3 (01:43→20:08)
[2018-04-10 04:00] VITALS: BP 107/64
[2018-04-10] MEDS: PIPERACILLIN /TAZOBACTAM 2.25 G in IV D5W 50 ML IV SCH ×3 (05:05→17:01)
--- NOTE | 2018-04-10 06:24 | NUR ---
BIZTALK CONSULTANT NOTES: NO CHANGES NOTED THROUGHOUT THE SHIFT. NO SOB NOTED. WOUND TREATMENT DONE ORDERED. GTF GLUCERNA 1.2 @ 65CC/HR, INTACT AND PATENT, NO RESIDUAL NOTED. DOTY CATH INTACT, DRAINED 750CC OF CLEAR YELLOW URINE OUTPUT. SINUS RHYTHM ON TELE MONITOR HR 76BPM. KEPT CLEAN, DRY AND COMFORTABLE. TURNED AND REPOSITIONED Q2HRS AND NEEDED. SAFETY AND FALL PRECAUTIONS OBSERVED AND MAINTAINED. WILL ENDORSE TO DAY SHIFT RN FOR CONTINUITY OF CARE.
[2018-04-10] MEDS: INSULIN REGULAR, HUMAN 100 UNIT/ML 3 ML VIAL SQ PRN ×2 (06:41→22:36)
--- NOTE | 2018-04-10 07:00 | NUR ---
PARKING TECHNICIAN OPENING NOTES Patient was seen lying in bed, nonverbal due to trach/vent, but patient can respond by shaking head "yes or no"; patient appears to be AOx1. Patient is tolerating trach/vent setting well with no signs of SOB or aspiration. On telemonitor with NSR of 79 bpm. Patient shows no signs of acute distress. F/C intact draining yellow urine. Glucerna G-tube feed is running at 65 ML/HR. 0 ML residual noted. NS at 75ml/hr is running through the L FOOT IV CATH with no signs of leaking or infiltration. Bed is low/locked, two side rails up. Will continue to monitor.
[2018-04-10 08:00] VITALS: BP 130/54
[2018-04-10 08:27] LABS: BASOPHILS % (AUTO) 0.7 % (0.0-2.0); EOSINOPHILS % (AUTO) 7.7 % (0.0-6.0); HEMATOCRIT 23 % (33-45); HEMOGLOBIN 7.3 g/dL (11.5-14.8); LYMPHOCYTES % (AUTO) 27.6 % (20.0-44.0); MEAN CORPUSCULAR HGB CONC 32 g/dl (31.0-36.0); MEAN CORPUSCULAR VOLUME 97 fL (82-100); MONOCYTES # (AUTO) 0.2 /CMM (0.1-1.30); MONOCYTES % (AUTO) 5.7 % (2.0-12.0); NEUTROPHILS # (AUTO) 2.2 /CMM (1.8-8.9); NEUTROPHILS % (AUTO) 58.3 % (43.0-81.0); PLATELET COUNT (AUTO) 302 /CMM (150-450); RDW COEFFICIENT OF VARIATION 20.5 (11.5-15.0); RED BLOOD CELL COUNT(AUTO) 2.32 MIL/uL (4.0-5.2); WHITE BLOOD COUNT (AUTO) 3.7 K/uL (4.3-11.0)
[2018-04-10] MEDS: BLOOD SUGAR DIAGNOSTIC 1 EACH STRIP IN SCH ×4 (08:30→22:30)
[2018-04-10 08:41] LABS: CALCIUM, SERUM 8.3 mg/dL (8.5-10.1); CARBON DIOXIDE 29 mmol/L (21-32); CHLORIDE 102 mmol/L (98-107); CREATININE 0.6 mg/dL (0.6-1.3); GLUCOSE 131 mg/dL (74-106); MAGNESIUM 1.8 mg/dL (1.8-2.4); PHOSPHORUS 3.2 mg/dL (2.5-4.9); POTASSIUM 3.7 mmol/L (3.5-5.1); SODIUM SERUM 135 mmol/L (136-145); UREA NITROGEN, BLOOD 18 mg/dL (7-18)
[2018-04-10] MEDS: MUPIROCIN OINT 2% 22 GM TUBE SCH ×2 (08:54→20:06)
[2018-04-10] MEDS: DAKINS QUARTER STRENGTH (0.125%) 480 ML BOTTLE TOP SCH (08:54)
[2018-04-10] MEDS: FAMOTIDINE (20 MG) 20 MG TABLET GT SCH (08:58)
[2018-04-10] MEDS: ACIDOPHILUS/BULGARICUS 1 EACH TAB.CHEW GT SCH ×2 (08:58→17:00)
[2018-04-10] MEDS: FERROUS SULFATE UDC 300 MG/5 ML UDC GT SCH ×3 (08:58→17:00)
[2018-04-10] MEDS: DOCUSATE SODIUM LIQ 100 MG/10 ML UDC GT SCH (08:58)
[2018-04-10] MEDS: ZINC SULFATE 220 MG CAPSULE GT SCH (08:59)
[2018-04-10] MEDS: ASCORBIC ACID 500 MG TABLET GT SCH (08:59)
[2018-04-10] MEDS: PROSOURCE / PROSTAT (PYXIS) 30 ML UDC GT SCH ×2 (08:59→17:00)
[2018-04-10] MEDS: MULTIVIT, IRON, MIN NO. 8, FA 1 TAB GT SCH (08:59)
[2018-04-10] MEDS: CADEXOMER IODINE 40 GM TUBE TP SCH (09:01)
[2018-04-10] MEDS: VANCOMYCIN 0.75 GM in IV D5W 250 ML IV SCH ×2 (10:58→20:03)
[2018-04-10 12:00] VITALS: BP 125/59
[2018-04-10 16:00] VITALS: BP 90/53
--- NOTE | 2018-04-10 19:21 | NUR ---
PUNCH PRESS OPERATOR HELPER CLOSING NOTES REPORTED TO PM NURSE FOR CONTINUITY OF CARE. PT IS NOT IN DISTRESS AT THIS TIME. PT IS RESTING IN BED. ALL NEEDS ATTENDED TO. SAFETY PRECAUTIONS MAINTAINED. CALL LIGHT IN REACH.
--- NOTE | 2018-04-10 19:37 | NUR ---
PT RECEIVED WITH A PORTEX 7 TRACH ON THE VENT WITH NOTED SETTINGS. PT IS AWAKE AND ALERT. VENT ALARMS ARE SET AND AUDIBLE WITH AMBU BAG @ BEDSIDE. TRACH PATENT AND SECURE. RENEWABLE ENERGY ENGINEER CUFF PRESSURE NOTED. VENT IS PLUGGED INTO RED OUTLET. BREATHING TX GIVEN PER MD'S ORDER. SUCTIONED SMALL THICK PALE YELLOW SECRETIONS. NO RESPIRATORY DISTRESS NOTED AT THIS TIME, WILL CONTINUE TO MONITOR.
[2018-04-10 20:00] VITALS: BP 132/58
[2018-04-10] MEDS: MAGNESIUM OXIDE 400 MG TABLET GT SCH (22:34)
[2018-04-10] MEDS: ATORVASTATIN 40 MG TABLET GT SCH (22:34)
[2018-04-10] MEDS: ENOXAPARIN SODIUM 40 MG/0.4 ML DISP.SYRIN SQ SCH (22:35)
[2018-04-10] MEDS: INSULIN GLARGINE, 100 UNIT/ML CARTRIDGE SQ SCH (22:36)
[2018-04-11] VITALS: BP 119/54
[2018-04-11] MEDS: PIPERACILLIN /TAZOBACTAM 2.25 G in IV D5W 50 ML IV SCH ×4 (00:42→17:26)
[2018-04-11] MEDS: IPRATROPIUM NEB FS 0.5 MG/2.5 ML AMPUL.NEB IH SCH ×4 (00:51→19:43)
[2018-04-11] MEDS: ALBUTEROL FS 2.5 MG/0.5 ML VIAL.NEB NEB SCH ×4 (00:51→19:42)
[2018-04-11] MEDS: HYDROCODONE/APAP 5/325MG 1 EACH TABLET PO PRN ×2 (01:12→08:33)
[2018-04-11] MEDS: NYSTATIN TOP POWDER 15 GM BOTTLE TP SCH ×2 (01:13→12:58)
[2018-04-11 04:00] VITALS: BP 115/56
[2018-04-11 06:18] LABS: CALCIUM, SERUM 8.9 mg/dL (8.5-10.1); CARBON DIOXIDE 29 mmol/L (21-32); CHLORIDE 100 mmol/L (98-107); CREATININE 0.7 mg/dL (0.6-1.3); GLUCOSE 148 mg/dL (74-106); POTASSIUM 4.3 mmol/L (3.5-5.1); SODIUM SERUM 135 mmol/L (136-145); UREA NITROGEN, BLOOD 17 mg/dL (7-18)
[2018-04-11 06:40] LABS: BASOPHILS % (AUTO) 0.4 % (0.0-2.0); EOSINOPHILS % (AUTO) 8.4 % (0.0-6.0); HEMATOCRIT 26 % (33-45); HEMOGLOBIN 8.4 g/dL (11.5-14.8); LYMPHOCYTES # (AUTO) 1.1 /CMM (0.8-4.8); LYMPHOCYTES % (AUTO) 28.1 % (20.0-44.0); MEAN CORPUSCULAR HGB CONC 33 g/dl (31.0-36.0); MEAN CORPUSCULAR VOLUME 97 fL (82-100); MONOCYTES # (AUTO) 0.2 /CMM (0.1-1.30); MONOCYTES % (AUTO) 4.8 % (2.0-12.0); NEUTROPHILS # (AUTO) 2.2 /CMM (1.8-8.9); NEUTROPHILS % (AUTO) 58.3 % (43.0-81.0); PLATELET COUNT (AUTO) 353 /CMM (150-450); RDW COEFFICIENT OF VARIATION 20.3 (11.5-15.0); RED BLOOD CELL COUNT(AUTO) 2.67 MIL/uL (4.0-5.2); WHITE BLOOD COUNT (AUTO) 3.8 K/uL (4.3-11.0)
--- NOTE | 2018-04-11 07:00 | NUR ---
DIRECTOR BIOMEDICAL ENGINEERING OPENING NOTES Patient was seen lying in bed, nonverbal due to trach/vent, but patient can respond by shaking head "yes or no"; patient appears to be AOx1. Patient is tolerating trach/vent setting well with no signs of SOB or aspiration. On telemonitor with NSR of 80 bpm. Patient shows no signs of acute distress. F/C intact draining yellow urine. Glucerna G-tube feed is running at 65 ML/HR. 0 ML residual noted. NS at 75ml/hr is running through the L FOOT IV CATH with no signs of leaking or infiltration. Bed is low/locked, two side rails up. Will continue to monitor.
[2018-04-11 08:00] VITALS: BP 126/56
[2018-04-11] MEDS: ACIDOPHILUS/BULGARICUS 1 EACH TAB.CHEW GT SCH ×2 (08:32→16:51)
[2018-04-11] MEDS: FERROUS SULFATE UDC 300 MG/5 ML UDC GT SCH ×3 (08:32→16:50)
[2018-04-11] MEDS: ZINC SULFATE 220 MG CAPSULE GT SCH (08:32)
[2018-04-11] MEDS: PROSOURCE / PROSTAT (PYXIS) 30 ML UDC GT SCH ×2 (08:32→16:51)
[2018-04-11] MEDS: FAMOTIDINE (20 MG) 20 MG TABLET GT SCH (08:33)
[2018-04-11] MEDS: MULTIVIT, IRON, MIN NO. 8, FA 1 TAB GT SCH (08:33)
[2018-04-11] MEDS: DOCUSATE SODIUM LIQ 100 MG/10 ML UDC GT SCH (08:34)
[2018-04-11] MEDS: ASCORBIC ACID 500 MG TABLET GT SCH (08:36)
[2018-04-11] MEDS: BLOOD SUGAR DIAGNOSTIC 1 EACH STRIP IN SCH ×4 (08:37→21:12)
[2018-04-11] MEDS: MUPIROCIN OINT 2% 22 GM TUBE SCH ×2 (08:38→21:12)
[2018-04-11] MEDS: DAKINS QUARTER STRENGTH (0.125%) 480 ML BOTTLE TOP SCH (08:38)
[2018-04-11] MEDS: CADEXOMER IODINE 40 GM TUBE TP SCH (08:39)
[2018-04-11] MEDS: INSULIN REGULAR, HUMAN 100 UNIT/ML 3 ML VIAL SQ PRN ×2 (08:42→21:16)
[2018-04-11] MEDS: VANCOMYCIN 0.75 GM in IV D5W 250 ML IV SCH ×2 (08:55→20:58)
--- NOTE | 2018-04-11 11:00 | NUR ---
PERFORMANCE MANAGER NOTES PT TRANSPORTED TO CT SCAN WITH RT, RN AND 2 NURSING STUDENTS. PULSE OX AND TELE MONITORED. PT TOLERATED PROCEDURE WELL. NOTIFIED DR LAMAR OF RESULTS.
[2018-04-11 12:00] VITALS: BP 113/76
[2018-04-11] MEDS: GLUCERNA 1.2 1,000 ML BOTTLE NG PRN (12:54)
[2018-04-11 16:00] VITALS: BP 120/44
[2018-04-11] MEDS: IV NS 0.9% 1,000 ML IV PRN (16:52)
--- NOTE | 2018-04-11 17:15 | NUR ---
SCLEROSCOPE TESTER NOTES CLD CHANGE BY ZOE SILVER AND ZOE OSHEA. PICC LINE NO LONGER PATENT/FLUSHING.
--- NOTE | 2018-04-11 19:15 | NUR ---
FIRE EATER CLOSING NOTES ENDORSED PT TO PM NURSE FOR HECTOR. PT NOT IN DISTRESS AT THIS TIME. BED IN LOCKED/LOWEST POSITION. CALL LIGHT IN REACH.
--- NOTE | 2018-04-11 19:48 | NUR ---
PT RECEIVED ON THE VENT WITH NOTED SETTINGS. VENT ALARMS ARE SET AND AUDIBLE WITH BVM BY BEDSIDE. GRAIN BLENDER CUFF PRESSURE NOTED. VENT IS PLUGGED INTO RED OUTLET. PT SX'D SMALL THICK PALE YELLOW SECRETIONS. NO RESPIRATORY DISTRESS NOTED AT THIS TIME, WILL CONTINUE TO MONITOR. Addendum: 04/11/18 at 1948 by PRAFUL MONTGOMERY RT Amended: Links added.
[2018-04-11 20:00] VITALS: BP 141/67
--- NOTE | 2018-04-11 20:00 | NUR ---
TELE/RN NOTES: RECEIVED PT. IN BED W/ HOB ELEVATED. ON TELE MONITOR W/ SR @ 97. ON CONTACT ISOLATION FOR MRSA . ON MECHANICAL VENT TOLERATING SETTINGS WELL. NO FACIAL GRIMACES OR MOANING NOTED. NO S/S OF RESPIRATORY DISTRESS. F/C PATENT AND INTACT DRAINING VIA GRAVITY. MID LINE ON RAC W/ DRESSING C/D/I. HAS LEFT FOOT PERIPHERAL IV W/ IVF. ON GTF TOLERATING WELL W/ NO RESIDUAL NOTED. BEDS LOCKED AND IN LOW POSITION. WILL CONTINUE TO MONITOR.
[2018-04-11] MEDS: ATORVASTATIN 40 MG TABLET GT SCH (21:01)
[2018-04-11] MEDS: ENOXAPARIN SODIUM 40 MG/0.4 ML DISP.SYRIN SQ SCH (21:02)
[2018-04-11] MEDS: MAGNESIUM OXIDE 400 MG TABLET GT SCH (21:02)
[2018-04-11] MEDS: INSULIN GLARGINE, 100 UNIT/ML CARTRIDGE SQ SCH (21:10)
[2018-04-12] VITALS (8 sets, daily range): BP systolic 113–122; BP diastolic 51–72
[2018-04-12] MEDS: PIPERACILLIN /TAZOBACTAM 2.25 G in IV D5W 50 ML IV SCH ×4 (00:16→17:59)
[2018-04-12] MEDS: NYSTATIN TOP POWDER 15 GM BOTTLE TP SCH ×2 (00:29→13:09)
[2018-04-12] MEDS: ALBUTEROL FS 2.5 MG/0.5 ML VIAL.NEB NEB SCH ×4 (02:03→19:37)
[2018-04-12] MEDS: IPRATROPIUM NEB FS 0.5 MG/2.5 ML AMPUL.NEB IH SCH ×4 (02:03→19:37)
[2018-04-12] MEDS: GLUCERNA 1.2 1,000 ML BOTTLE NG PRN (05:02)
[2018-04-12] MEDS: BLOOD SUGAR DIAGNOSTIC 1 EACH STRIP IN SCH ×4 (06:43→21:15)
[2018-04-12] MEDS: INSULIN REGULAR, HUMAN 100 UNIT/ML 3 ML VIAL SQ PRN ×4 (06:45→21:20)
--- NOTE | 2018-04-12 07:16 | NUR ---
TELE/RN NOTES: REPORT GIVEN TO NEXT SHIFT NURSE FOR HECTOR.
[2018-04-12 07:25] LABS: CALCIUM, SERUM 8.9 mg/dL (8.5-10.1); CARBON DIOXIDE 31 mmol/L (21-32); CHLORIDE 100 mmol/L (98-107); CREATININE 0.6 mg/dL (0.6-1.3); GLUCOSE 145 mg/dL (74-106); POTASSIUM 4.2 mmol/L (3.5-5.1); SODIUM SERUM 135 mmol/L (136-145); UREA NITROGEN, BLOOD 16 mg/dL (7-18)
--- NOTE | 2018-04-12 08:24 | NUR ---
DINING ROOM CASHIER OPENING NOTES RECEIVED PATIENT SLEEPING IN BED. NON-VERBAL TRACH /VENT RESPONDS WITH NODDING. A/O X1 . NO SIGNS OR SYMPTOMS OF ACUTE RESPIRATORY DISTRESS OR ACUTE PAIN. ON TELL MONITOR SR 76. F/C DRAINING CLEAR YELLOW URINE . ON TUBE FEEDING TOLERATING NO NAUSEA VOMITING OR DIARRHEA NOTED. (R) AC LINE OBSTRUCTED WILL F/U WITH PCP (L) FOOT 24 GAUGE RUNNING NS @75 ML/HR. SAFETY PRECAUTIONS IN PLACE WILL CONT TO MONITOR
[2018-04-12] MEDS: FAMOTIDINE (20 MG) 20 MG TABLET GT SCH (09:23)
[2018-04-12] MEDS: FERROUS SULFATE UDC 300 MG/5 ML UDC GT SCH ×3 (09:23→16:42)
[2018-04-12] MEDS: DOCUSATE SODIUM LIQ 100 MG/10 ML UDC GT SCH (09:23)
[2018-04-12] MEDS: ACIDOPHILUS/BULGARICUS 1 EACH TAB.CHEW GT SCH ×2 (09:23→16:44)
[2018-04-12] MEDS: ASCORBIC ACID 500 MG TABLET GT SCH (09:24)
[2018-04-12] MEDS: PROSOURCE / PROSTAT (PYXIS) 30 ML UDC GT SCH ×2 (09:24→18:04)
[2018-04-12] MEDS: MULTIVIT, IRON, MIN NO. 8, FA 1 TAB GT SCH (09:24)
[2018-04-12] MEDS: ZINC SULFATE 220 MG CAPSULE GT SCH (09:25)
[2018-04-12] MEDS: VANCOMYCIN 0.75 GM in IV D5W 250 ML IV SCH ×2 (09:26→20:53)
[2018-04-12] MEDS: DAKINS QUARTER STRENGTH (0.125%) 480 ML BOTTLE TOP SCH (09:43)
[2018-04-12] MEDS: CADEXOMER IODINE 40 GM TUBE TP SCH (09:44)
[2018-04-12] MEDS: MUPIROCIN OINT 2% 22 GM TUBE SCH ×2 (09:44→20:54)
[2018-04-12] MEDS: IV NS 0.9% 1,000 ML IV PRN (09:50)
[2018-04-12] MEDS: ACETAMINOPHEN 325 MG TABLET PO PRN (15:00)
--- NOTE | 2018-04-12 19:24 | NUR ---
CRUISE COORDINATOR CLOSING NOTES ENDORSED PT TO PM NURSE FOR HECTOR. PT NOT IN DISTRESS AT THIS TIME. BED IN LOCKED/LOWEST POSITION. CALL LIGHT IN REACH.
--- NOTE | 2018-04-12 19:25 | NUR ---
FUEL OIL CLERK OPENING NOTES RECEIVED PATIENT IN BED AWAKE, ALERT AND ORIENTED X1 NONVERBAL ABLE TO ANSWER YES OR NO QUESTIONS WITH NODDING. ON MECHANICAL VENT CONNECTED TO RED EMERGENCY PLUG, AMBU BAG AND SUCTION EQUIPMENT AT BEDSIDE, PORTEX #7, AC 12,TV 500, PEEP 7. NO SIGNS OF RESPIRATORY DISTRESS.O2 SAT 100%.HEAD OF BED ELEVATED FOR ASPIRATION PRECAUTIONS GLUCERNA 1.2 RUNNING ORDERED AT 65ML/HR. TOLERATED WELL. IV SITE TO RIGHT FOOT WITH NS RUNNING AT 75ML/HR. NO REDNESS, NO INFILTRATION PRESENT, PATIENT ALSO HAS RIGHT AC MIDLINE WITH DRESSING INTACT NOT IN USE.DOTY CATHETER INTACT AND DRAINING URINE WELL , NOTED YELLOW IN COLOR. ON CONTACT ISOLATION FOR MRSA NARES. NOTED WITH BUE AND BLE CONTRACTURES. PATIENT HAS MULTIPLE SKIN ISSUES NOTED DRESSINGS INTACT AND DRY. ORIENTED TO STAFF AND CALL LIGHT , SAFETY PRECAUTIONS IN PLACE, ALL NEEDS ATTENDED AT THIS TIME PATIENT REMAINS COMFORTABLE WILL CONTINUE TO MONITOR.
--- NOTE | 2018-04-12 19:37 | NUR ---
PT RECEIVED WITH A PORTEX 7 TRACH ON THE VENT WITH NOTED SETTINGS. PT IS AWAKE AND ALERT. VENT ALARMS ARE SET AND AUDIBLE WITH AMBU BAG @ BEDSIDE. TRACH PATENT AND SECURE. LOGISTICS TEAM LEAD CUFF PRESSURE NOTED. VENT IS PLUGGED INTO RED OUTLET. BREATHING TX GIVEN PER MD'S ORDER. SUCTIONED SMALL THICK PALE YELLOW SECRETIONS. NO RESPIRATORY DISTRESS NOTED AT THIS TIME, WILL CONTINUE TO MONITOR.
[2018-04-12] MEDS: ATORVASTATIN 40 MG TABLET GT SCH (21:13)
[2018-04-12] MEDS: MAGNESIUM OXIDE 400 MG TABLET GT SCH (21:13)
[2018-04-12] MEDS: INSULIN GLARGINE, 100 UNIT/ML CARTRIDGE SQ SCH (21:19)
[2018-04-12] MEDS: ENOXAPARIN SODIUM 40 MG/0.4 ML DISP.SYRIN SQ SCH (21:53)
[2018-04-13] VITALS: BP_SYST 129; BP_DIAS 62; BP_DIAS 64
[2018-04-13] MEDS: NYSTATIN TOP POWDER 15 GM BOTTLE TP SCH ×2 (00:19→12:26)
[2018-04-13] MEDS: PIPERACILLIN /TAZOBACTAM 2.25 G in IV D5W 50 ML IV SCH ×4 (00:19→17:03)
[2018-04-13] MEDS: IPRATROPIUM NEB FS 0.5 MG/2.5 ML AMPUL.NEB IH SCH ×4 (00:53→19:16)
[2018-04-13] MEDS: ALBUTEROL FS 2.5 MG/0.5 ML VIAL.NEB NEB SCH ×4 (00:53→19:16)
[2018-04-13] MEDS: IV NS 0.9% 1,000 ML IV PRN ×2 (03:25→17:03)
[2018-04-13 04:00] VITALS: BP 123/79
[2018-04-13] MEDS: INSULIN REGULAR, HUMAN 100 UNIT/ML 3 ML VIAL SQ PRN ×3 (06:26→22:01)
[2018-04-13] MEDS: BLOOD SUGAR DIAGNOSTIC 1 EACH STRIP IN SCH ×4 (06:28→21:51)
--- NOTE | 2018-04-13 06:39 | NUR ---
SENIOR TAX ANALYST CLOSING NOTES PATIENT IN BED AWAKE, ALERT AND ORIENTED X1 NONVERBAL ABLE TO ANSWER YES OR NO QUESTIONS WITH NODDING. ON MECHANICAL VENT CONNECTED TO RED EMERGENCY PLUG, AMBU BAG AND SUCTION EQUIPMENT AT BEDSIDE WITH AUDIBLE ALARMS IN PLACE., PORTEX #7, AC 12,TV 500, PEEP 7. NO SIGNS OF RESPIRATORY DISTRESS.O2 SAT 100%.HEAD OF BED ELEVATED FOR ASPIRATION PRECAUTIONS GLUCERNA 1.2 RUNNING ORDERED AT 65ML/HR. TOLERATED WELL. IV SITE TO RIGHT FOOT WITH NS RUNNING AT 75ML/HR. NO REDNESS, NO INFILTRATION PRESENT, PATIENT ALSO HAS RIGHT AC MIDLINE WITH DRESSING INTACT NOT IN USE/OCCULDED.DOTY CATHETER INTACT AND DRAINING URINE WELL , NOTED YELLOW/CLEAR IN COLOR. ON CONTACT ISOLATION FOR MRSA NARES. NOTED WITH BUE AND BLE CONTRACTURES. PATIENT HAS MULTIPLE SKIN ISSUES NOTED DRESSINGS INTACT AND DRY. CALL LIGHT KEPT WITHIN REACH, ON MASTER STEAM YACHT SR 66, SAFETY PRECAUTIONS IN PLACE, ALL NEEDS ATTENDED AT THIS TIME PATIENT REMAINS COMFORTABLE WILL CONTINUE TO MONITOR AND ENDORSE TO NEXT SHIFT, HEELS FLOATED WITH PILLOWS FOR SKIN/WOUND MANAGEMENT AND PREVENTION.
[2018-04-13 06:41] LABS: CALCIUM, SERUM 9.1 mg/dL (8.5-10.1); CARBON DIOXIDE 30 mmol/L (21-32); CHLORIDE 101 mmol/L (98-107); CREATININE 0.6 mg/dL (0.6-1.3); GLUCOSE 142 mg/dL (74-106); SODIUM SERUM 137 mmol/L (136-145); UREA NITROGEN, BLOOD 14 mg/dL (7-18)
--- NOTE | 2018-04-13 07:15 | NUR ---
TELE/RN INITIAL NOTES RECEIVE PT IN BED, AWAKE AND NONVERBAL. IN NO SIGNS OF PAIN NOTED. SR HR 70S ON TELEMONITOR. TRACH PORTEX7 INTACT, TOLERATING VENT SETTINGS: AC12; TV500; FIO2:40% PEEP7. F/C INTACT AND IN PLACED, DRAINING CLEAR YELLOW COLORED URINE. GT INTACT AND PATENT, WITH ONGOING GTF GLUCERNA 1.2 AT 65ML/HR, TOLERATING WELL. BERNARD MIDLINE INTACT. WITH ONGOING IVF NS @75 ML/HR INFUSING WELL ON RFOOT IV G24. HOB ELEVATED. SAFETY MEASURES AND ASPIRATION PRECAUTION IN PLACED. WILL CONT TO MONITOR
[2018-04-13 08:00] VITALS: BP 103/81
[2018-04-13] MEDS: PROSOURCE / PROSTAT (PYXIS) 30 ML UDC GT SCH ×2 (08:17→16:25)
[2018-04-13] MEDS: ACIDOPHILUS/BULGARICUS 1 EACH TAB.CHEW GT SCH ×2 (08:17→16:25)
[2018-04-13] MEDS: ASCORBIC ACID 500 MG TABLET GT SCH (08:17)
[2018-04-13] MEDS: FERROUS SULFATE UDC 300 MG/5 ML UDC GT SCH ×3 (08:17→16:25)
[2018-04-13] MEDS: DOCUSATE SODIUM LIQ 100 MG/10 ML UDC GT SCH (08:17)
[2018-04-13] MEDS: MULTIVIT, IRON, MIN NO. 8, FA 1 TAB GT SCH (08:17)
[2018-04-13] MEDS: FAMOTIDINE (20 MG) 20 MG TABLET GT SCH (08:17)
[2018-04-13] MEDS: ZINC SULFATE 220 MG CAPSULE GT SCH (08:17)
[2018-04-13] MEDS: VANCOMYCIN 0.75 GM in IV D5W 250 ML IV SCH ×2 (08:18→21:36)
[2018-04-13] MEDS: DAKINS QUARTER STRENGTH (0.125%) 480 ML BOTTLE TOP SCH (08:36)
[2018-04-13] MEDS: CADEXOMER IODINE 40 GM TUBE TP SCH (08:37)
[2018-04-13] MEDS: MUPIROCIN OINT 2% 22 GM TUBE SCH ×2 (08:37→21:52)
[2018-04-13 12:00] VITALS: BP 111/77
[2018-04-13] MEDS: GLUCERNA 1.2 1,000 ML BOTTLE NG PRN (15:10)
[2018-04-13 16:00] VITALS: BP 115/62
--- NOTE | 2018-04-13 19:11 | NUR ---
RN NOTES PT IN STABLE CONDITION. NO ACUTE CHANGES THROUGHOUT SHIFT. SAFETY MEASURES AND ASPIRATION PRECAUTION OBSERVED AT ALL TIMES. ALL NEEDS ANTICIPATED. REPORT GIVEN TO PM SHIFT RN FOR HCETOR
[2018-04-13 20:00] VITALS: BP 97/62
--- NOTE | 2018-04-13 21:08 | NUR ---
PT RECEIVED ON MECHANICAL VENT ON THE NOTED SETTINGS. TRACH IS SECURE. PT SUCTIONED SMALL THIN WHITE/CLEAR SECRETIONS. BREATHING TX WAS GIVEN, NO ADVERSE REACTIONS NOTED AT THIS TIME. VENT IS PLUGGED INTO RED OUTLET. VENT ALARMS ARE ON AND AUDIBLE. AMBU BAG IS AT BEDSIDE. WILL CONT TO MONITOR PT. Addendum: 04/13/18 at 2108 by KAELYN CARDENAS RT Amended: Links added.
[2018-04-13] MEDS: ATORVASTATIN 40 MG TABLET GT SCH (21:54)
[2018-04-13] MEDS: HYDROCODONE/APAP 5/325MG 1 EACH TABLET PO PRN (21:54)
[2018-04-13] MEDS: MAGNESIUM OXIDE 400 MG TABLET GT SCH (21:54)
[2018-04-13] MEDS: INSULIN GLARGINE, 100 UNIT/ML CARTRIDGE SQ SCH (22:00)
[2018-04-13] MEDS: ENOXAPARIN SODIUM 40 MG/0.4 ML DISP.SYRIN SQ SCH (22:02)
[2018-04-14] VITALS (7 sets, daily range): BP systolic 114–145; BP diastolic 59–85
[2018-04-14] MEDS: PIPERACILLIN /TAZOBACTAM 2.25 G in IV D5W 50 ML IV SCH ×4 (00:21→17:30)
[2018-04-14] MEDS: NYSTATIN TOP POWDER 15 GM BOTTLE TP SCH ×2 (01:10→12:45)
[2018-04-14] MEDS: ALBUTEROL FS 2.5 MG/0.5 ML VIAL.NEB NEB SCH ×4 (01:40→19:43)
[2018-04-14] MEDS: IPRATROPIUM NEB FS 0.5 MG/2.5 ML AMPUL.NEB IH SCH ×4 (01:40→19:43)
[2018-04-14] MEDS: HYDROCODONE/APAP 5/325MG 1 EACH TABLET PO PRN ×2 (05:30→22:16)
--- NOTE | 2018-04-14 07:05 | NUR ---
TELE/RN INITIAL NOTES RECEIVED PT IN BED. ASLEEP BUT AROUSABLE TO TACTILE STIMULI. SR ON TELEMONITOR. WITH INTACT TRACH PORTEX7, TOLERATING VENT SETTINGS: AC12; TV500; FIO2:40%; PEEP7. SPO2 100%. WITH INTACT AND FC IN PLACED, DRAINING YELLOW COLOR URINE. GT INTACT AND IN PLACED, WITH ONGOING GTF GLUCERNA @65ML/HR, TOLERATING WELL. RFOOT G24 SL INTACT AND PATENT, WITH ONGOING IVF NS @ 75ML/HR INFUSING WELL ON BERNARD MIDLINE. HOB ELEVATED. SAFETY MEASURES AND ASPIRATION PRECAUTION OBSERVED AT ALL TIMES. CONTACT ISOLATION OBSERVED. WILL CONT TO MONITOR
[2018-04-14] MEDS: BLOOD SUGAR DIAGNOSTIC 1 EACH STRIP IN SCH ×4 (07:42→22:11)
[2018-04-14 08:21] LABS: CALCIUM, SERUM 8.8 mg/dL (8.5-10.1); CARBON DIOXIDE 28 mmol/L (21-32); CHLORIDE 102 mmol/L (98-107); CREATININE 0.6 mg/dL (0.6-1.3); GLUCOSE 175 mg/dL (74-106); POTASSIUM 3.9 mmol/L (3.5-5.1); SODIUM SERUM 136 mmol/L (136-145); UREA NITROGEN, BLOOD 12 mg/dL (7-18)
[2018-04-14] MEDS: ASCORBIC ACID 500 MG TABLET GT SCH (08:21)
[2018-04-14] MEDS: FERROUS SULFATE UDC 300 MG/5 ML UDC GT SCH ×3 (08:21→17:23)
[2018-04-14] MEDS: PROSOURCE / PROSTAT (PYXIS) 30 ML UDC GT SCH ×2 (08:21→17:23)
[2018-04-14] MEDS: FAMOTIDINE (20 MG) 20 MG TABLET GT SCH (08:21)
[2018-04-14] MEDS: ACIDOPHILUS/BULGARICUS 1 EACH TAB.CHEW GT SCH ×2 (08:21→17:23)
[2018-04-14] MEDS: ZINC SULFATE 220 MG CAPSULE GT SCH (08:21)
[2018-04-14] MEDS: MULTIVIT, IRON, MIN NO. 8, FA 1 TAB GT SCH (08:21)
[2018-04-14] MEDS: DOCUSATE SODIUM LIQ 100 MG/10 ML UDC GT SCH (08:21)
[2018-04-14] MEDS: DAKINS QUARTER STRENGTH (0.125%) 480 ML BOTTLE TOP SCH (08:22)
[2018-04-14] MEDS: MUPIROCIN OINT 2% 22 GM TUBE SCH ×2 (08:22→22:12)
[2018-04-14] MEDS: CADEXOMER IODINE 40 GM TUBE TP SCH (08:22)
[2018-04-14] MEDS: INSULIN REGULAR, HUMAN 100 UNIT/ML 3 ML VIAL SQ PRN ×3 (08:24→22:19)
[2018-04-14] MEDS: VANCOMYCIN 0.75 GM in IV D5W 250 ML IV SCH ×2 (08:29→21:00)
--- NOTE | 2018-04-14 09:30 | NUR ---
RN NOTES RECHECKED BP 144/89, NO C/O ANY/CHEST PAIN
[2018-04-14] MEDS: GLUCERNA 1.2 1,000 ML BOTTLE NG PRN (09:48)
[2018-04-14] MEDS: IV NS 0.9% 1,000 ML IV PRN (11:35)
--- NOTE | 2018-04-14 18:37 | NUR ---
RT END OF THE SHIFT REPORT: PT. 73 Y OLD FEMALE PORTEX # 7 REMAIN ON VENT WITH NOTED SETTINGS, ALARMS ARE SET AND FUNCTIONAL. EQUAL CHEST RISE NOTED. B/S BILATERALLY RHONCHI SUX'D FOR MOD. AMT OF YELLOW THICK SECRETIONS, TX'S GIVEN INLINE AND NO ADVERSE REACTION NOTED. NO CHANGES T/O DAY AND PT. REMAIN STABLE. VENT PLUGGED INTO RED OUT LET. AMBU BAG REMAIN AT THE BEDSIDE. REPORT WILL PASS TO PM SHIFT. Addendum: 04/14/18 at 1838 by MATTEO ROJAS RT Amended: Links added.
--- NOTE | 2018-04-14 18:53 | NUR ---
RN NOTES PT IN STABLE CONDITION. NO ACUTE CHANGES THROUGHOUT SHIFT. SAFETY MEASURES AND ASPIRATION PRECAUTION OBSERVED AT ALL TIMES. WILL ENDORSE TO PM SHIFT NURSE FOR HECTOR
--- NOTE | 2018-04-14 21:13 | NUR ---
PT RCVD TRACH'D ON MECHANICAL VENT WITH CHARTED SETTINGS. PT TOLERATING SETTINGS WELL AT THIS TIME. TX GIVEN AND NO ADVERSE REACTION NOTED. SX DONE. PT TRACH PATENT AND SECURE. AMBU BAG AT BEDSIDE. VENT PLUGGED INTO RED OUTLET. ALARMS ARE ON AND AUDIBLE. WILL CONTINUE TO MONITOR. Addendum: 04/14/18 at 2114 by JAYCOB RODRIGUES RT Amended: Links added.
[2018-04-14] MEDS: MAGNESIUM OXIDE 400 MG TABLET GT SCH (22:16)
[2018-04-14] MEDS: ATORVASTATIN 40 MG TABLET GT SCH (22:16)
[2018-04-14] MEDS: INSULIN GLARGINE, 100 UNIT/ML CARTRIDGE SQ SCH (22:19)
[2018-04-14] MEDS: ENOXAPARIN SODIUM 40 MG/0.4 ML DISP.SYRIN SQ SCH (22:19)
[2018-04-15] VITALS: BP 148/67
[2018-04-15] MEDS: PIPERACILLIN /TAZOBACTAM 2.25 G in IV D5W 50 ML IV SCH ×3 (00:23→12:29)
[2018-04-15] MEDS: IPRATROPIUM NEB FS 0.5 MG/2.5 ML AMPUL.NEB IH SCH ×3 (01:17→12:50)
[2018-04-15] MEDS: ALBUTEROL FS 2.5 MG/0.5 ML VIAL.NEB NEB SCH ×3 (01:17→12:50)
[2018-04-15 04:00] VITALS: BP 128/65
[2018-04-15] MEDS: GLUCERNA 1.2 1,000 ML BOTTLE NG PRN (04:06)
[2018-04-15] MEDS: HYDROCODONE/APAP 5/325MG 1 EACH TABLET PO PRN (04:08)
--- NOTE | 2018-04-15 07:25 | NUR ---
MS RN INITIAL NOTES Patient in bed, eyes open, non verbal. Trach intact, on mech. vent. Sinus rhythm in the tele monitor, no shortness of breath, non productive cough. Abdomen presence of Gtube intact, Glucerna at 65ml/hr infusing. Argueta in place, bag off the floor. Maintained contact precaution MRSA nares. Will cont to monitor.
[2018-04-15 07:37] LABS: CALCIUM, SERUM 8.9 mg/dL (8.5-10.1); CARBON DIOXIDE 29 mmol/L (21-32); CHLORIDE 100 mmol/L (98-107); CREATININE 0.6 mg/dL (0.6-1.3); GLUCOSE 149 mg/dL (74-106); POTASSIUM 3.8 mmol/L (3.5-5.1); SODIUM SERUM 134 mmol/L (136-145); UREA NITROGEN, BLOOD 9 mg/dL (7-18)
[2018-04-15 07:56] LABS: BASOPHILS % (AUTO) 0.6 % (0.0-2.0); EOSINOPHILS % (AUTO) 10.4 % (0.0-6.0); HEMATOCRIT 24 % (33-45); HEMOGLOBIN 7.7 g/dL (11.5-14.8); LYMPHOCYTES # (AUTO) 1.3 /CMM (0.8-4.8); LYMPHOCYTES % (AUTO) 23.9 % (20.0-44.0); MEAN CORPUSCULAR HGB CONC 32 g/dl (31.0-36.0); MEAN CORPUSCULAR VOLUME 98 fL (82-100); MONOCYTES # (AUTO) 0.4 /CMM (0.1-1.30); NEUTROPHILS # (AUTO) 3.1 /CMM (1.8-8.9); NEUTROPHILS % (AUTO) 58.1 % (43.0-81.0); PLATELET COUNT (AUTO) 356 /CMM (150-450); RED BLOOD CELL COUNT(AUTO) 2.47 MIL/uL (4.0-5.2); WHITE BLOOD COUNT (AUTO) 5.4 K/uL (4.3-11.0)
[2018-04-15 08:00] VITALS: BP 122/57
[2018-04-15] MEDS: ACIDOPHILUS/BULGARICUS 1 EACH TAB.CHEW GT SCH (08:06)
[2018-04-15] MEDS: FAMOTIDINE (20 MG) 20 MG TABLET GT SCH (08:06)
[2018-04-15] MEDS: FERROUS SULFATE UDC 300 MG/5 ML UDC GT SCH ×2 (08:06→14:24)
[2018-04-15] MEDS: MULTIVIT, IRON, MIN NO. 8, FA 1 TAB GT SCH (08:06)
[2018-04-15] MEDS: ZINC SULFATE 220 MG CAPSULE GT SCH (08:06)
[2018-04-15] MEDS: ASCORBIC ACID 500 MG TABLET GT SCH (08:06)
[2018-04-15] MEDS: DOCUSATE SODIUM LIQ 100 MG/10 ML UDC GT SCH (08:06)
[2018-04-15] MEDS: PROSOURCE / PROSTAT (PYXIS) 30 ML UDC GT SCH (08:09)
[2018-04-15] MEDS: BLOOD SUGAR DIAGNOSTIC 1 EACH STRIP IN SCH ×2 (08:14→12:22)
[2018-04-15] MEDS: MUPIROCIN OINT 2% 22 GM TUBE SCH (08:22)
[2018-04-15] MEDS: VANCOMYCIN 0.75 GM in IV D5W 250 ML IV SCH (08:23)
[2018-04-15] MEDS: INSULIN REGULAR, HUMAN 100 UNIT/ML 3 ML VIAL SQ PRN ×2 (08:33→12:23)
[2018-04-15] MEDS: IV NS 0.9% 1,000 ML IV PRN (10:02)
--- NOTE | 2018-04-15 10:14 | NUR ---
LOW HEMOGLOBIN 7.7 NO BLEEDING NOTED. INFORMED HAND ROLLER ENGRAVER EUNICE ORDERED STOOL OB, WILL FOLLOW UP.
[2018-04-15] MEDS: DAKINS QUARTER STRENGTH (0.125%) 480 ML BOTTLE TOP SCH (11:45)
[2018-04-15 12:00] VITALS: BP 134/69
[2018-04-15] MEDS: CADEXOMER IODINE 40 GM TUBE TP SCH (12:41)
[2018-04-15 16:00] VITALS: BP 94/54
--- NOTE | 2018-04-15 17:23 | NUR ---
AU PAIR DISCHARGED Patient has been cleared for discharge by . VS remained stable, afebrile during the shift. Tolerating gtube feeding well, minimal gastric residual 10cc. Trach intact, mech vent settings remained the same. Wound dressing changed today, no stool this shift. Argueta intact, patient with multiple wounds. IV antibiotic will be continued at SNF per ID, BERNARD midline remained in place, patent and intact. Called [facility], spoke to ZOE Aceves for report. Patient left hosp in stable condition via ambulance.
== END 2018-04-15 17:30 | DRG 853 ==
LOC: ER 22:27 → TELE-TD 04-07 00:44 → TELE1 04-08 13:14
PROVIDERS: ADMIT Internal Medicine; ATTEND Internal Medicine
PROC: 5A1955Z Respiratory Ventilation, Greater than 96 Consecutive Hours (ICD-10-PCS; principal; 2018-04-07)
PROC: 0QB30ZZ Excision of Left Pelvic Bone, Open Approach (ICD-10-PCS; 2018-04-09)
PROC: 0QB10ZZ Excision of Sacrum, Open Approach (ICD-10-PCS; 2018-04-09)
PROC: 0KBP0ZZ Excision of Left Hip Muscle, Open Approach (ICD-10-PCS; 2018-04-09)
PROC: 0LBW0ZZ Excision of Left Foot Tendon, Open Approach (ICD-10-PCS; 2018-04-09)
PROC: 0JBR0ZZ Excision of Left Foot Subcutaneous Tissue and Fascia, Open Approach (ICD-10-PCS; 2018-04-09)
DX: A41.9 Sepsis, unspecified organism (principal); L89.623 Pressure ulcer of left heel, stage 3; L89.894 Pressure ulcer of other site, stage 4; L89.154 Pressure ulcer of sacral region, stage 4; L89.324 Pressure ulcer of left buttock, stage 4; L89.124 Pressure ulcer of left upper back, stage 4; L89.224 Pressure ulcer of left hip, stage 4; E43 Unspecified severe protein-calorie malnutrition; J96.21 Acute and chronic respiratory failure with hypoxia; N17.0 Acute kidney failure with tubular necrosis; R53.2 Functional quadriplegia; E87.1 Hypo-osmolality and hyponatremia; J95.851 Ventilator associated pneumonia; J90 Pleural effusion, not elsewhere classified; Z99.11 Dependence on respirator [ventilator] status; N39.0 Urinary tract infection, site not specified; D68.59 Other primary thrombophilia; G93.40 Encephalopathy, unspecified; J44.0 Chronic obstructive pulmonary disease with (acute) lower respiratory infection; L30.4 Erythema intertrigo; E78.5 Hyperlipidemia, unspecified; Z93.0 Tracheostomy status; Z93.1 Gastrostomy status; I25.10 Atherosclerotic heart disease of native coronary artery without angina pectoris; G30.9 Alzheimer's disease, unspecified; I10 Essential (primary) hypertension; K21.9 Gastro-esophageal reflux disease without esophagitis; R13.10 Dysphagia, unspecified; S80.211A Abrasion, right knee, initial encounter; Z66 Do not resuscitate; Z86.73 Personal history of transient ischemic attack (TIA), and cerebral infarction without residual deficits; F09 Unspecified mental disorder due to known physiological condition; E11.9 Type 2 diabetes mellitus without complications; M24.562 Contracture, left knee; M24.561 Contracture, right knee; D63.8 Anemia in other chronic diseases classified elsewhere; Z22.322 Carrier or suspected carrier of Methicillin resistant Staphylococcus aureus
CPT/HCPCS: 31720; 36415; 36569; 36600; 71045-TC; 71250-TC; 76942-TC; 80048-TC; 80053-TC; 80061-TC; 80076-TC; 80202-TC; 81000-TC; 82803-TC; 82962-TC; 83605-TC; 83735-TC; 83880; 84100-TC; 84134-TC; 84484-TC; 85025-TC; 85610-TC; 85730-TC; 87040-TC; 87070-TC; 87081-TC; 87086-TC; 87186-TC; 87400; 94002-TC; 94003-TC; 94760-TC; 94762-TC; A4216; A4606; A6253; A6402; A6403; A6407; J0696; J1650; J1815; J2543; J3370; J3490; J7030; J7060; Z7610